=== PATIENT | female | born 1935 ===

== ENCOUNTER 2017-12-22 17:59 | Inpatient (IN) | payer MEDICARE ==
[2017-12-22] MEDS ORDERED: ASPIRIN 81 MG PO STA (18:41)
[2017-12-22 18:56] LABS: Anisocytosis Moderate; Basophils % (A) 0 %; Eosinophils # (A) 0.1 k/uL (0-0.7); Eosinophils % (A) 1 %; HCT 32.7 % (34.0-46.0); HGB 10.1 gm/dL (11.4-16.0); Hypochromasia Slight; Lymphocytes # (A) 1.9 k/uL (1.0-4.8); Lymphocytes % (A) 18 %; MCH 25.7 pg (25.0-35.0); MCHC 30.8 g/dL (31.0-37.0); MCV 83.6 fL (80.0-100.0); Mean Platelet Volume 7.9; Microcytosis Slight; Monocytes # (A) 0.3 k/uL (0-1.0); Monocytes % (A) 3 %; Neutrophils # (A) 8.3 k/uL (1.3-7.7); Neutrophils % (A) 78 %; Platelet Count 301 k/uL (150-450); RBC 3.91 m/uL (3.80-5.40); RDW 21.3 % (11.5-15.5); WBC 10.7 k/uL (3.8-10.6)
[2017-12-22 19:06] LABS: Albumin 3.6 g/dL (3.5-5.0); Calcium 8.8 mg/dL (8.4-10.2); Magnesium 1.7 mg/dL (1.6-2.3); Potassium 3.5 mmol/L (3.5-5.1); Total Bilirubin 0.3 mg/dL (0.2-1.3); Total Protein 5.7 g/dL (6.3-8.2)
--- NOTE | 2017-12-22 19:13 | ED ---
Dizziness HPI - General Chief Complaint: Dizziness Stated Complaint: Chest pain KIRILL Time Seen by Provider: 12/22/17 18:34 Source: patient, family Mode of arrival: EMS - History of Present Illness Initial Comments: 82 years O female comes in with the dizziness dizziness is gone for 24 hours she developed chest pain chest pain lasted about 5 minutes she has no history of heart disease he has a history of COPD she is complaining about being short winded she does wear oxygen at home to sleep. Now chest pain has subsided it only hurts when she takes a deep breath she has been coughing quite a bit for the last few days no abdominal pain no frequency urgency dysuria no symptoms of TIA or CVA - Related Data Home Medications Medication Instructions Recorded Confirmed Albuterol Inhaler [Ventolin Hfa 2 inhalation PO RT-Q6H PRN 12/22/17 12/22/17 Inhaler] Ferrous Sulfate [Feosol] 325 mg PO DAILY 12/22/17 12/22/17 Furosemide [Lasix] 20 mg PO DAILY 12/22/17 12/22/17 Pravastatin Sodium [Pravachol] 20 mg PO DAILY 12/22/17 12/22/17 metFORMIN HCL 1,000 mg PO BID 12/22/17 12/22/17 Allergies Allergy/AdvReac Type Severity Reaction Status Date / Time UKNOWN MED Allergy Unknown Uncoded 12/22/17 18:44 Review of Systems ROS Statement: Those systems with pertinent positive or pertinent negative responses have been documented in the HPI. ROS Other: All systems not noted in ROS Statement are negative. Past Medical History Past Medical History: COPD, Diabetes Mellitus, Osteoarthritis (OA) History of Any Multi-Drug Resistant Organisms: None Reported Past Surgical History: Bowel Resection, Cholecystectomy Past Psychological History: No Psychological Hx Reported Smoking Status: Current every day smoker Past Alcohol Use History: None Reported Past Drug Use History: None Reported Course Vital Signs 12/22/17 12/22/17 18:05 19:10 Temperature 99.4 F 98.1 F Pulse Rate 86 79 Respiratory 18 19 Rate Blood Pressure 115/53 103/56 O2 Sat by Pulse 94 L 97 Oximetry Patient is reassessed at down at 2030, white count is 10.3, BS metabolic panel is unremarkable d-dimer was elevated we did do CT chest angiogram it ruled out pulmonary embolism troponin is negative head CT there was a question of right- sided mastoiditis by clinical exam and indicates She is not tender there deep palpation or percussion over the area did not elicit any excruciating pain and even a mild tenderness and discussed that with the Dr. Serrano and we agreed to hold off any antibiotics at this point. Diagnoses or dizziness and chest pain and pleuritic chest pain she be admitted with the cardiology consult which she has COPD she be getting some inhaled and IV steroids EKG Findings - EKG Comments: EKG Findings:: EKG is normal sinus ventricular rate is 79 OH interval is 162 QRS duration is 72 QT/QTc is 390/447 review of this EKG does reveal T-wave inversion in lead V2 and V3 V4 and V5 Medical Decision Making - Lab Data Result diagrams: 12/22/17 18:35 12/22/17 18:35 Lab Results 12/22/17 12/22/17 12/22/17 Range/Units 18:35 18:35 18:35 WBC 10.7 H (3.8-10.6) k/uL RBC 3.91 (3.80-5.40) m/uL Hgb 10.1 L (11.4-16.0) gm/dL Hct 32.7 L (34.0-46.0) % MCV 83.6 (80.0-100.0) fL MCH 25.7 (25.0-35.0) pg MCHC 30.8 L (31.0-37.0) g/dL RDW 21.3 H (11.5-15.5) % Plt Count 301 (150-450) k/uL Neutrophils % 78 % Lymphocytes % 18 % Monocytes % 3 % Eosinophils % 1 % Basophils % 0 % Neutrophils # 8.3 H (1.3-7.7) k/uL Lymphocytes # 1.9 (1.0-4.8) k/uL Monocytes # 0.3 (0-1.0) k/uL Eosinophils # 0.1 (0-0.7) k/uL Basophils # 0.0 (0-0.2) k/uL Hypochromasia Slight Anisocytosis Moderate Microcytosis Slight PT (9.0-12.0) sec INR (<1.2) APTT (22.0-30.0) sec D-Dimer (<0.60) mg/L FEU Sodium 140 (137-145) mmol/L Potassium 3.5 (3.5-5.1) mmol/L Chloride 107 (98-107) mmol/L Carbon Dioxide 24 (22-30) mmol/L Anion Gap 9 mmol/L BUN 14 (7-17) mg/dL Creatinine 0.90 (0.52-1.04) mg/dL Est GFR (CKD-EPI)AfAm 70 (>60 ml/min/1.73 sqM) Est GFR (CKD-EPI)NonAf 61 (>60 ml/min/1.73 sqM) Glucose 134 H (74-99) mg/dL Calcium 8.8 (8.4-10.2) mg/dL Magnesium 1.7 (1.6-2.3) mg/dL Total Bilirubin 0.3 (0.2-1.3) mg/dL AST 26 (14-36) U/L ALT 33 (9-52) U/L Alkaline Phosphatase 74 (38-126) U/L Total Creatine Kinase 39 (30-135) U/L CK-MB (CK-2) 1.0 (0.0-2.4) ng/mL CK-MB (CK-2) Rel Index 2.6 Troponin I <0.012 (0.000-0.034) ng/mL NT-Pro-B Natriuret Pep pg/mL Total Protein 5.7 L (6.3-8.2) g/dL Albumin 3.6 (3.5-5.0) g/dL 12/22/17 12/22/17 Range/Units 18:35 18:35 WBC (3.8-10.6) k/uL RBC (3.80-5.40) m/uL Hgb (11.4-16.0) gm/dL Hct (34.0-46.0) % MCV (80.0-100.0) fL MCH (25.0-35.0) pg MCHC (31.0-37.0) g/dL RDW (11.5-15.5) % Plt Count (150-450) k/uL Neutrophils % % Lymphocytes % % Monocytes % % Eosinophils % % Basophils % % Neutrophils # (1.3-7.7) k/uL Lymphocytes # (1.0-4.8) k/uL Monocytes # (0-1.0) k/uL Eosinophils # (0-0.7) k/uL Basophils # (0-0.2) k/uL Hypochromasia Anisocytosis Microcytosis PT 9.9 (9.0-12.0) sec INR 1.0 (<1.2) APTT 21.1 L (22.0-30.0) sec D-Dimer 0.70 H (<0.60) mg/L FEU Sodium (137-145) mmol/L Potassium (3.5-5.1) mmol/L Chloride (98-107) mmol/L Carbon Dioxide (22-30) mmol/L Anion Gap mmol/L BUN (7-17) mg/dL Creatinine (0.52-1.04) mg/dL Est GFR (CKD-EPI)AfAm (>60 ml/min/1.73 sqM) Est GFR (CKD-EPI)NonAf (>60 ml/min/1.73 sqM) Glucose (74-99) mg/dL Calcium (8.4-10.2) mg/dL Magnesium (1.6-2.3) mg/dL Total Bilirubin (0.2-1.3) mg/dL AST (14-36) U/L ALT (9-52) U/L Alkaline Phosphatase (38-126) U/L Total Creatine Kinase (30-135) U/L CK-MB (CK-2) (0.0-2.4) ng/mL CK-MB (CK-2) Rel Index Troponin I (0.000-0.034) ng/mL NT-Pro-B Natriuret Pep 114 pg/mL Total Protein (6.3-8.2) g/dL Albumin (3.5-5.0) g/dL Disposition Clinical Impression: Dizziness, Chest pain Disposition: ADMITTED IP TO THIS HOSP Condition: Good Referrals: Luisito Reagan MD [Primary Care Provider] - 1-2 days
[2017-12-22 19:14] LABS: Creatine Kinase 39 U/L (30-135); Partial Thromboplastin Time 21.1 sec (22.0-30.0); Prothrombin Time 9.9 sec (9.0-12.0)
[2017-12-22 19:26] LABS: D-Dimer 0.7 mg/L FEU (<0.60)
[2017-12-22 19:28] LABS: Troponin I <0.012 ng/mL (0.000-0.034)
--- NOTE | 2017-12-22 20:07 | CT ---
EXAMINATION TYPE: CT brain wo con DATE OF EXAM: 12/22/2017 COMPARISON: None HISTORY: Weakness and dizziness. CT DLP: 1044 mGycm Automated exposure control for dose reduction was used. FINDINGS: There is cerebral cortical atrophy. There is no mass effect nor midline shift. There is no sign of in tracranial hemorrhage. The calvarium is intact. There is sclerosis in the right mastoid sinus. IMPRESSION: CEREBRAL ATROPHY. NO ACUTE INTRACRANIAL ABNORMALITY. THERE IS PROBABLY RIGHT-SIDED CHRONIC MASTOIDITI S.
--- NOTE | 2017-12-22 20:10 | CT ---
EXAMINATION TYPE: CT chest angio for PE DATE OF EXAM: 12/22/2017 COMPARISON: None HISTORY: Difficulty breathing. CT DLP: 236.8 mGycm Automated exposure control for dose reduction was used. CONTRAST: CT Chest for pulmonary embolism performed with with IV Contrast, patient injected with 100 mL of Isov ue 370. FINDINGS: There are 3-D post processed images. There is diffuse mild pulmonary emphysema. There is coarsening o f interstitial markings at the lung bases. There is no pericardial effusion. There is no pleural effu belgica. Thoracic aorta is atheromatous. There are paratracheal lymph nodes that measure up to 1.5 cm. There is normal contrast opacification of the pulmonary arteries. I see no filling defect. There is a therosclerotic plaque formation in the proximal descending thoracic aorta. Ascending aorta measures 3 .5 cm. There are no hilar masses. The bony thorax is intact. IMPRESSION: Atheromatous aorta. No evidence of pulmonary embolism. Emphysema.
[2017-12-22] MEDS ORDERED: cefTRIAXone 2,000 MG in SODIUM CHLORIDE 0.9% 100 ML IVPB STA (20:23)
[2017-12-22] MEDS ORDERED: cefTRIAXone IN SWFI 2,000 MG/20 ML SYRINGE IVP ONE (20:30)
[2017-12-22] MEDS ORDERED: NITROGLYCERIN SL TABS 0.4 MG TAB SUBLINGUAL PRN (20:32)
[2017-12-22] MEDS ORDERED: MORPHINE SULFATE 2 MG/ML SYRINGE IVP PRN (20:32)
[2017-12-22] MEDS ORDERED: ALBUTEROL NEBULIZED 2.5 MG/3 ML INHALATION PRN (20:38)
[2017-12-22] MEDS ORDERED: MECLIZINE 12.5 MG TAB PO PRN (20:39)
[2017-12-22] MEDS: metFORMIN 500 MG TAB PO SCH (23:11)
[2017-12-23 01:11] LABS: Creatine Kinase 36 U/L (30-135)
[2017-12-23 01:22] LABS: Troponin I <0.012 ng/mL (0.000-0.034)
[2017-12-23 06:31] LABS: Cholesterol 134 mg/dL (<200); Creatine Kinase 35 U/L (30-135); HDL Cholesterol 26 mg/dL (40-60); LDL Cholesterol,Calculated 63 mg/dL (0-99); Triglycerides 223 mg/dL (<150)
[2017-12-23 06:44] LABS: Creatine Kinase MB 1.1 ng/mL (0.0-2.4); Troponin I <0.012 ng/mL (0.000-0.034)
[2017-12-23] MEDS: metFORMIN 500 MG TAB PO SCH ×2 (06:51→17:34)
[2017-12-23] MEDS: BUDESONIDE 0.5 MG/2 ML NEBU INHALATION SCH ×2 (08:59→17:59)
[2017-12-23] MEDS: FUROSEMIDE 20 MG TAB PO SCH (09:00)
[2017-12-23] MEDS: PRAVASTATIN SODIUM 20 MG TAB PO SCH (09:00)
[2017-12-23] MEDS: FERROUS SULFATE 325 MG TAB PO SCH (09:00)
[2017-12-23] MEDS ORDERED: ASPIRIN 325 MG TAB PO SCH (09:00)
--- NOTE | 2017-12-23 10:34 | P.CRDCN ---
History of Present Illness Consult date: 12/23/17 Requesting physician: Wilton Serrano Consult reason: chest pain Chief complaint: Dizziness and chest pain History of present illness: This is an 82-year-old female with history of diabetes, hyperlipidemia , nicotine dependence, COPD, who presents to the hospital with symptoms of dizziness with subsequent chest discomfort. According to the patient, she was just sitting up in her chair when she all of a sudden became dizzy. Shortly thereafter she states she developed tightness in her chest, became mildly short of breath. She states that the symptoms of chest tightness lasted 5-10 minutes in duration. He also states that she feels that she's been more short of breath than her usual, she has COPD and does continue to smoke. She denies any chest tightness this morning, but does feel a pain in her chest if she takes a deep breath this morning. CT of the brain revealed cerebral atrophy. No acute intracranial abnormality noted. CTA of the chest was performed which did not reveal evidence of a pulmonary embolism. Initial EKG on arrival here showed a normal sinus rhythm with T wave inversion noted in the anterior lateral leads. Repeat EKG this morning shows a normal sinus rhythm with some improvement noted in the anterior T-wave inversion. Blood pressure this morning 142/60 with a heart rate in the 80s, 96% on 2 L of oxygen. White blood cell count 10.7, hemoglobin 10.1, platelet count 301. D-dimer 0.7, sodium 140, potassium 3.5, BUN 14, creatinine 0.9. Troponins are negative 3. BNP level 114. Cholesterol 134, triglycerides 223, LDL 63, HDL 26. At the time of my examination this morning, patient denies any chest discomfort, breathing is overall stable. She denies any dizziness or lightheadedness. According to the patient, she has been told in the past to have a low blood count, she also takes iron supplementation. She denies any recent black stool or blood in her stool. Past Medical History Past Medical History: Chest Pain / Angina, COPD, Diabetes Mellitus, Osteoarthritis (OA) History of Any Multi-Drug Resistant Organisms: None Reported Past Surgical History: Bowel Resection, Cholecystectomy Additional Past Surgical History / Comment(s): partial hysterectomy Past Anesthesia/Blood Transfusion Reactions: No Reported Reaction Past Psychological History: Anxiety, Panic Disorder Smoking Status: Current every day smoker Past Alcohol Use History: None Reported Past Drug Use History: None Reported Medications and Allergies Home Medications Medication Instructions Recorded Confirmed Type Albuterol Inhaler [Ventolin Hfa 2 inhalation PO RT-Q6H PRN 12/22/17 12/22/17 History Inhaler] Ferrous Sulfate [Feosol] 325 mg PO DAILY 12/22/17 12/22/17 History Furosemide [Lasix] 20 mg PO DAILY 12/22/17 12/22/17 History Pravastatin Sodium [Pravachol] 20 mg PO DAILY 12/22/17 12/22/17 History metFORMIN HCL 1,000 mg PO BID 12/22/17 12/22/17 History Allergies Allergy/AdvReac Type Severity Reaction Status Date / Time No Known Drug Allergies Allergy Unknown Unknown Verified 12/23/17 07:06 UKNOWN MED Allergy Unknown Uncoded 12/22/17 18:44 Physical Exam Vitals: Vital Signs Temp Pulse Pulse Resp BP BP Pulse Ox 12/23/17 09:10 80 12/23/17 09:00 80 94 L 12/23/17 08:00 97.5 F L 68 16 143/63 96 12/23/17 04:10 98.3 F 82 19 146/74 94 L 12/22/17 21:45 99.1 F 68 19 115/69 96 12/22/17 21:02 98.1 F 75 16 124/57 97 12/22/17 19:10 98.1 F 79 19 103/56 97 12/22/17 18:05 99.4 F 86 18 115/53 94 L Intake and Output 12/22/17 12/23/17 12/23/17 22:59 06:59 14:59 Intake Total 240 0 Balance 240 0 Intake: Oral 240 0 Other: Voiding Method Toilet Weight 86.183 kg 82.9 kg PHYSICAL EXAMINATION: GENERAL: 82-year-old female in no acute distress at the time of my examination HEENT: Head is atraumatic, normocephalic. Pupils equal, round. Sclera anicteric. Conjunctiva are clear. Mucous membranes of the mouth are moist. Neck is supple. There is no elevated jugular venous pressure. No carotid bruit is heard. HEART EXAMINATION: Heart S1, S2 normal. No murmur or gallop heard. CHEST EXAMINATION: Lungs are clear to auscultation and precussion. No chest wall tenderness is noted on palpation or with deep breathing. ABDOMEN: Soft, nontender. Bowel sounds are heard. No organomegaly noted. EXTREMITIES: 2+ peripheral pulses with no evidence of peripheral edema and no calf tenderness noted. NEUROLOGIC patient is awake, alert and oriented X3. . Results 12/22/17 18:35 12/22/17 18:35 Cardiac Enzymes 12/22/17 12/22/17 12/23/17 Range/Units 18:35 18:35 00:36 AST 26 (14-36) U/L CK-MB (CK-2) 1.0 1.0 (0.0-2.4) ng/mL Troponin I <0.012 <0.012 (0.000-0.034) ng/mL 12/23/17 Range/Units 05:51 AST (14-36) U/L CK-MB (CK-2) 1.1 (0.0-2.4) ng/mL Troponin I <0.012 (0.000-0.034) ng/mL Coagulation 12/22/17 Range/Units 18:35 PT 9.9 (9.0-12.0) sec APTT 21.1 L (22.0-30.0) sec Lipids 12/23/17 Range/Units 05:51 Triglycerides 223 H (<150) mg/dL Cholesterol 134 (<200) mg/dL HDL Cholesterol 26 L (40-60) mg/dL CBC 12/22/17 Range/Units 18:35 WBC 10.7 H (3.8-10.6) k/uL RBC 3.91 (3.80-5.40) m/uL Hgb 10.1 L (11.4-16.0) gm/dL Hct 32.7 L (34.0-46.0) % Plt Count 301 (150-450) k/uL Comprehensive Metabolic Panel 12/22/17 Range/Units 18:35 Sodium 140 (137-145) mmol/L Potassium 3.5 (3.5-5.1) mmol/L Chloride 107 (98-107) mmol/L Carbon Dioxide 24 (22-30) mmol/L BUN 14 (7-17) mg/dL Creatinine 0.90 (0.52-1.04) mg/dL Glucose 134 H (74-99) mg/dL Calcium 8.8 (8.4-10.2) mg/dL AST 26 (14-36) U/L ALT 33 (9-52) U/L Alkaline Phosphatase 74 (38-126) U/L Total Protein 5.7 L (6.3-8.2) g/dL Albumin 3.6 (3.5-5.0) g/dL Current Medications Generic Name Dose Route Start Last Admin Trade Name Freq PRN Reason Stop Dose Admin Albuterol Sulfate 2.5 mg 12/22/17 20:38 Ventolin Nebulized INHALATION RT-Q6H PRN Shortness Of Breath Aspirin 325 mg 12/23/17 09:00 12/23/17 08:59 Aspirin PO 325 mg DAILY GEN Administration Budesonide 0.5 mg 12/23/17 08:00 12/23/17 08:59 Pulmicort INHALATION 0.5 mg RT-BID GEN Administration Ferrous Sulfate 325 mg 12/23/17 09:00 12/23/17 09:00 Feosol PO 325 mg DAILY GEN Administration Furosemide 20 mg 12/23/17 09:00 12/23/17 09:00 Lasix PO 20 mg DAILY GEN Administration Meclizine HCl 12.5 mg 12/22/17 20:39 Antivert PO QID PRN Vertigo Metformin HCl 1,000 mg 12/22/17 21:00 12/23/17 06:51 Glucophage PO Not Given AC-BID GEN Morphine Sulfate 2 mg 12/22/17 20:32 Morphine Sulfate (Inj) IVP Q5M PRN Chest Pain Nitroglycerin 0.4 mg 12/22/17 20:32 Nitrostat SUBLINGUAL Q5M PRN Chest Pain Pravastatin Sodium 20 mg 12/23/17 09:00 12/23/17 09:00 Pravachol PO 20 mg DAILY GEN Administration Intake and Output 12/22/17 12/23/17 12/23/17 22:59 06:59 14:59 Intake Total 240 0 Balance 240 0 Intake: Oral 240 0 Other: Voiding Method Toilet Weight 86.183 kg 82.9 kg 12/22/17 18:35 12/22/17 18:35 EKG Interpretations (text) EKG shows a normal sinus rhythm with anterior lateral T-wave inversion Assessment and Plan Plan: Assessment and plan #1 symptoms of chest tightness with associated shortness of breath, preoperative by dizziness, possible angina. Troponins are negative 3. EKG shows a normal sinus rhythm with T wave inversion noted in the anterior lateral leads. CT of the brain negative. CTA negative for pulmonary embolism. #2 diabetes #3 hyperlipidemia #4 COPD #5 nicotine dependence #6 anemia, hemoglobin 10.1 Plan We will obtain an echocardiogram with Doppler study. We will also check orthostatic heart rate and blood pressure every shift. We will also check a stool for occult blood. Recommend the patient undergo stress test today. Further recommendations will be based on these findings and the patient's clinical course. DNP note has been reviewed, I agree with a documented findings and plan of care. Patient was seen and examined.
[2017-12-23] MEDS ORDERED: SODIUM CHLORIDE 0.9% 1,000 ML in EMPTY BAG 1 BAG IV ONE (11:54)
[2017-12-23] MEDS ORDERED: NITROGLYCERIN SL TABS 0.4 MG TAB SUBLINGUAL PRN ×2 (11:54→18:58)
[2017-12-23] MEDS ORDERED: ASPIRIN 325 MG TAB PO STA (11:54)
[2017-12-23] MEDS ORDERED: ATORVASTATIN 80 MG TAB PO STA (11:54)
[2017-12-23] MEDS ORDERED: ALPRAZolam 0.25 MG TAB PO PRN (11:54)
[2017-12-23] MEDS ORDERED: ALPRAZolam 0.5 MG TAB PO PRN (11:54)
--- NOTE | 2017-12-23 12:12 | ECHOF ---
Referral Reason:chest pain MEASUREMENTS -------- HEIGHT: 167.6 cm WEIGHT: 82.6 kg BP: 143/63 RVIDd: 3.1 cm (< 3.3) IVSd: 1.4 cm (0.6 - 1.1) LVIDd: 4.8 cm (3.9 - 5.3) LVPWd: 1.4 cm (0.6 - 1.1) IVSs: 1.8 cm LVIDs: 3.3 cm LVPWs: 1.8 cm LA Diam: 4.2 cm (2.7 - 3.8) LAESV Index (A-L): 19.00 ml/m Ao Diam: 3.4 cm (2.0 - 3.7) AV Cusp: 1.9 cm (1.5 - 2.6) MV EXCURSION: 12.104 mm (> 18.000) MV EF SLOPE: 47 mm/s (70 - 150) EPSS: 0.6 cm MV E Gil: 1.11 m/s MV DecT: 240 ms MV A Gil: 1.20 m/s MV E/A Ratio: 0.92 FINDINGS -------- Sinus rhythm. This was a technically adequate study. The left ventricular size is normal. There is moderate concentric left ventricular hypertrophy. O verall left ventricular systolic function is low-normal with, an EF between 50 - 55 %. The right ventricle is normal in size. The global wall thickness of the right ventricle is mildly e nlarged. Normal LA size by volume 22+/-6 ml/m2. The right atrium is normal in size. There is mild aortic valve sclerosis. There is trace mitral regurgitation. The tricuspid valve appears structurally normal. There is no pulmonic regurgitation present. The aortic root size is normal. The inferior vena cava is dilated with poor inspiratory collapse which is consistent with estimated r ight atrial pressure of 15 mmHg. There is no pericardial effusion. CONCLUSIONS -------- 1. Sinus rhythm. 2. This was a technically adequate study. 3. The left ventricular size is normal. 4. There is moderate concentric left ventricular hypertrophy. 5. Overall left ventricular systolic function is low-normal with, an EF between 50 - 55 %. 6. The right ventricle is normal in size. 7. The global wall thickness of the right ventricle is mildly enlarged. 8. Normal LA size by volume 22+/-6 ml/m2. 9. The right atrium is normal in size. 10. There is mild aortic valve sclerosis. 11. There is trace mitral regurgitation. 12. The tricuspid valve appears structurally normal. 13. There is no pulmonic regurgitation present. 14. The aortic root size is normal. 15. The inferior vena cava is dilated with poor inspiratory collapse which is consistent with estimat ed right atrial pressure of 15 mmHg. 16. There is no pericardial effusion. [employer]OUND [employer]CHOOL INSTRUCTOR: Gaby Morrison RDCS
[2017-12-23] MEDS ORDERED: MIDAZOLAM 2 MG/2 ML VIAL ONE ×2 (14:12→18:35)
[2017-12-23] MEDS ORDERED: LIDOCAINE 1% INJ 10MG/ML (20 ML MDV) ONE ×2 (14:13→18:07)
[2017-12-23] MEDS ORDERED: fentaNYL (PF) 50 MCG/ML 2 ML AMP ONE ×2 (14:13→18:38)
[2017-12-23] MEDS ORDERED: MIDAZOLAM 2 MG/2 ML VIAL IV ONE ×2 (14:25→18:39)
[2017-12-23] MEDS ORDERED: fentaNYL (PF) 50 MCG/ML 2 ML AMP IV ONE ×2 (14:25→18:41)
[2017-12-23] MEDS ORDERED: SODIUM CHLORIDE 0.9% 1,000 ML IV ONE (14:25)
[2017-12-23] MEDS ORDERED: LIDOCAINE 1% INJ 10MG/ML (20 ML MDV) SQ ONE ×2 (14:28→18:38)
[2017-12-23] MEDS ORDERED: IOPAMIDOL-370 125ML BTL INJ ONE (14:44)
[2017-12-23] MEDS ORDERED: HEPARIN SODIUM 1,000 UN/ML (10ML VL) ONE (14:53)
[2017-12-23 15:34] LABS: Glucose,Whole Blood 122 mg/dL (75-99)
[2017-12-23] MEDS ORDERED: HYDROmorphone 1 MG/ML 1 ML SYRINGE IVP STA (15:38)
--- NOTE | 2017-12-23 16:53 | CC ---
CARDIAC CATHETERIZATION REPORT Mrs. Pa is an 82-year-old female, who came to the hospital with a complaint of chest pressure, shortness of breath and dizziness. Patient had similar symptoms about a week ago. The patient's initial EKG showed anterior lateral changes in V2 to V6. Subsequent EKG is normal. His cardiac enzymes were normal. In view of the abnormal EKG with the chest pressure and shortness of breath, the patient was recommended to have a cardiac catheterization for definitive diagnosis. PROCEDURE: The right groin was prepped and draped in the usual manner and the skin was infiltrated with 2% Xylocaine. The right femoral artery was entered using Seldinger technique. A #6- Belgian sheath was placed in. Selective coronary angiography was then performed in multiple projections and the left ventricular pressures were obtained. Patient tolerated the procedure well. Sheath was left in place and Dr. Chavarria will come later on to the stent to the circumflex coronary artery. HEMODYNAMICS: Left ventricular end-diastolic pressure is 20 mmHg prior to angiography. No gradient is noted across the aortic valve. SELECTIVE CORONARY ANGIOGRAPHY: Left main coronary artery is normally patent. LAD is a good caliber blood vessel and gives rise to a good size diagonal branch. LAD and its branches are normal. Circumflex coronary artery is a good caliber blood vessel. The mid circumflex coronary artery at the origin of the first obtuse marginal branch has 85-90% stenosis. Right coronary artery has mild irregularity and gives rise to the posterior descending artery. FINAL IMPRESSION: This study reveals 85-90% stenosis in the mid circumflex coronary artery. LAD is normal. Right coronary artery has mild irregularity. RECOMMENDATIONS: We will review the films with Dr. Chavarria and proceed with a stent to the circumflex coronary artery in view of the abnormal EKG changes suggestive of ischemia. MMODL / IJN: [id number] /
[2017-12-23 17:03] LABS: Glucose,Whole Blood 120 mg/dL (75-99)
[2017-12-23] MEDS ORDERED: IV FLUID CONTINUATION 1,000 ML IV ONE (18:29)
[2017-12-23] MEDS ORDERED: BIVALIRUDIN 250 MG in SODIUM CHLORIDE 0.9% 50 ML IV ONE (18:42)
[2017-12-23] MEDS ORDERED: BIVALIRUDIN BOLUS 250 MG/50 ML IV ONE (18:42)
[2017-12-23] MEDS ORDERED: CLOPIDOGREL 75 MG TAB ONE (18:50)
[2017-12-23] MEDS ORDERED: NITROGLYCERIN 1000MCG/10ML SYRINGE INTRACORON ONE (18:51)
[2017-12-23] MEDS ORDERED: CLOPIDOGREL 75 MG TAB PO ONE (18:57)
[2017-12-23] MEDS ORDERED: ZOLPIDEM 5 MG TAB PO PRN (18:58)
[2017-12-23] MEDS ORDERED: MAG HYDROX/AL HYDROX/SIMETH 30 ML CUP PO PRN (18:58)
[2017-12-23] MEDS ORDERED: IOPAMIDOL-370 100ML BTL INJ ONE (18:58)
[2017-12-23] MEDS ORDERED: ATROPINE SULFATE 0.1 MG/ML 10ML SYRINGE IV PRN (18:58)
[2017-12-23] MEDS ORDERED: RX INFO: IV CONTRAST WAS GIVEN 1 EACH MISC MISCELLANE PRN (18:58)
[2017-12-23] MEDS ORDERED: SODIUM CHLORIDE 0.9% 1,000 ML IV SCH (19:00)
--- NOTE | 2017-12-23 19:20 | LTR ---
December 23, [address] Reagan: Ms. Jade Pa presented to the hospital with chest discomfort concerning for angina. She underwent heart catheterization by Dr. VC Mederos and was found to have severe disease involving the mid left circumflex. I did perform successful angioplasty and stenting of the left circumflex with good angiographic results. Thank you for allowing us to participate in her care and please do not hesitate to call if you have any question or concern. MMODL / IJN: [id number] /
--- NOTE | 2017-12-23 19:44 | HP ---
HISTORY AND PHYSICAL DATE OF SERVICE: 12/23/17 PRESENTING COMPLAINT: Dizziness, chest pain. HISTORY OF PRESENTING COMPLAINT: This 82-year-old patient follows Dr. Reagan. Chronic stable medical conditions include COPD, diabetes, osteoarthritis, urine incontinence, GERD. The patient complains of dizziness present on and off. One episode happened really when she was sitting up in a chair, became acutely dizzy. Also developed chest pressure going across, some shortness of breath. Not short of breath. None did not radiate to the neck or arm. Also, dizziness has been present off and on. Has slight cough. Patient smokes close to 3 packs a day. The patient is brought in for the same. The patient is found to have some EKG changes. Troponins were negative. 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 VC Mederos, found to have an 80 to 90% stenosis in the mid circumflex. Dr. Chavarria will be proceeding with further intervention. That was done. Post procedure patient lying in bed. No chest pain. REVIEW OF SYSTEMS: CONSTITUTIONAL: Tired. HEENT: Some ringing in the ears. RESPIRATORY: Above. CARDIOVASCULAR: As above. GASTROINTESTINAL: Heartburn. GENITOURINARY: Incontinence. DERMATOLOGICAL, HEMATOLOGIC, LYMPHATIC: None. PSYCHIATRY: None. NEUROLOGICAL: None. MUSCULOSKELETAL: Arthritic pain in different joints. PAST MEDICAL HISTORY: COPD, diabetes, osteoarthritis, GERD, urinary incontinence. PAST SURGICAL HISTORY: Bowel resection, cholecystectomy, partial hysterectomy. SOCIAL HISTORY: Smokes about 3 packs a day close to 72 years. Lives by herself. No alcohol. FAMILY HISTORY: Reviewed, noncontributory to presentation. Additionally, the patient does use a cane or walker sometimes. HOME MEDICATIONS: 1. Metformin 1000 mg b.i.d. 2. Pravachol 20 mg daily. 3. Lasix 20 mg daily. 4. Iron 325 p.o. daily. 5. Ventolin HFA 2 puffs q.6h p.r.n. ALLERGIES: None. PHYSICAL EXAMINATION: Temperature 97.9, pulse 58, respiration 18, blood pressure 130/60, pulse ox 98% on 2 L. GENERAL APPEARANCE: Average build lying in bed, awake. EYES: Pupils equal. Conjunctivae normal. HEENT: External appearance of nose and ears normal. Oral cavity normal. NECK: JVD not raised. Mass not palpable. RESPIRATORY: Effort normal. Lungs slightly decreased breath sounds. CARDIOVASCULAR: 1st and 2nd sounds. No edema. ABDOMEN: Soft, nontender. Liver and spleen not palpable. LYMPHATIC: No lymph node palpable. PSYCHIATRY: Alert and oriented x3. Mood and affect normal. NEUROLOGICAL: Pupils equal. Cranial nerves grossly intact. Power and sensation grossly intact. MUSCULOSKELETAL: Evidence of osteoarthritis especially in the hands. INVESTIGATIONS: White count 10.7, hemoglobin 10.1, potassium 3.5, BUN 14, creatinine 0.9. Troponin x3 negative. LDL 63. Cardiac cath results as above. Chest CTA, no PE, emphysema. CT scan of the brain: Cerebral atrophy. EKG tracing reviewed by me showed evidence of flipped T-waves in the anterior leads. ASSESSMENT: 1. Unstable angina in a patient with risk factors including diabetes, her age, smoking. 2. Coronary artery disease with 80-90% lesion in the mid-circumflex with angioplasty and stenting. 3. Chronic obstructive pulmonary disease in a current smoker. 4. Chronic nicotine dependence. Patient is a cigarette smoker. 5. Diabetes mellitus type 2 on oral hypoglycemic. 6. Primary osteoarthritis in multiple joints, bilateral. 7. Chronic urinary stress incontinence. 8. Gastroesophageal reflux disease. PLAN: Patient is status post cardiac cath angioplasty stenting. Accu-Cheks will be closely followed. The patient is on aspirin and Pravachol. Will add DEREK inhibitor. Home medications resumed. The patient is seen by Dr. Darcy Mederos from Cardiology. SMOKING CESSATION COUNSELING: This was done with the patient. The patient will be given a nicotine patch. More than 3 minutes was spent on this aspect of the case. MMODL / IJN: [id number] /
--- NOTE | 2017-12-23 20:29 | PTCA ---
PERCUTANEOUSTRANS CORORONARY ANGIOGRAPHY DATE OF SERVICE: 12/23/2017 PERFORMING PHYSICIAN: Norris Chavarria MD, refinery operator vapor recovery unit. PROCEDURE PERFORMED: Successful stenting of the mid left circumflex using a 2.5 x 12 mm Xience drug-eluting stent with good angiographic results. INDICATION: This is a very pleasant 82-year-old female patient who presented to the hospital complaining of chest discomfort and EKG changes concerning for angina. She underwent a heart catheterization by Dr. Rachana Mederos and was found to have severe eccentric lesion involving the mid left circumflex. Percutaneous coronary intervention was recommended. APPROACH: Right common femoral artery. COMPLICATIONS: None. LEVEL OF SEDATION: Moderate with sedation length of 19 minutes. PROCEDURE DESCRIPTION: After diagnostic heart catheterization was performed by Dr. Rachana Mederos, we decided to proceed with an intervention on the left circumflex. Anticoagulation was initiated using Angiomax. Subsequently I exchanged the 11 cm 6-Burkinan sheath for a new one. After that I engaged the left main using an XP35 guide. I used a run-through wire to wire the left circumflex coronary artery. After that I did PTCA ballooning using a 2.0 x 12 mm balloon before I deployed a 2.5 x 12 mm Xience OMAR where the stent was positioned under fluoroscopy guidance and deployed under its nominal pressure, which is 10 atmospheres, for 20 seconds. The following angiogram showed good angiographic results with reduction of stenosis from 70% to 80% to 10%. The procedure was completed without any complication. POST-PROCEDURE MANAGEMENT: 1. Dual anti-platelet therapy. 2. Aggressive cholesterol control. 3. Follow up with the patient. MMODL / IJN: [id number] /
[2017-12-23 21:09] LABS: Glucose,Whole Blood 213 mg/dL (75-99)
[2017-12-23] MEDS: NICOTINE 21MG/24HR PATCH TRANSDERM SCH (21:15)
[2017-12-23] MEDS: METOPROLOL TARTRATE 25 MG TAB PO SCH (21:16)
[2017-12-23] MEDS: LISINOPRIL 5 MG TAB PO SCH (21:16)
[2017-12-24 05:57] LABS: Glucose,Whole Blood 139 mg/dL (75-99)
[2017-12-24 06:42] LABS: Anisocytosis Moderate; Basophils % (A) 0 %; Eosinophils # (A) 0.1 k/uL (0-0.7); Eosinophils % (A) 2 %; HCT 30.8 % (34.0-46.0); HGB 9.4 gm/dL (11.4-16.0); Hypochromasia Marked; Lymphocytes # (A) 1.8 k/uL (1.0-4.8); Lymphocytes % (A) 23 %; MCH 26.2 pg (25.0-35.0); MCHC 30.5 g/dL (31.0-37.0); MCV 85.8 fL (80.0-100.0); Mean Platelet Volume 7.3; Microcytosis Slight; Monocytes # (A) 0.3 k/uL (0-1.0); Monocytes % (A) 3 %; Neutrophils # (A) 5.8 k/uL (1.3-7.7); Neutrophils % (A) 71 %; Platelet Count 248 k/uL (150-450); RBC 3.58 m/uL (3.80-5.40); RDW 21.3 % (11.5-15.5); WBC 8.1 k/uL (3.8-10.6)
[2017-12-24 07:00] LABS: Anion Gap 6 mmol/L; Blood Urea Nitrogen 10 mg/dL (7-17); Calcium 8.4 mg/dL (8.4-10.2); Carbon Dioxide 24 mmol/L (22-30); Chloride 109 mmol/L (98-107); Glucose 120 mg/dL (74-99); Potassium 3.7 mmol/L (3.5-5.1); Sodium 139 mmol/L (137-145)
[2017-12-24] MEDS: NICOTINE 21MG/24HR PATCH TRANSDERM SCH ×2 (08:01→08:02)
[2017-12-24] MEDS: BUDESONIDE 0.5 MG/2 ML NEBU INHALATION SCH (08:37)
[2017-12-24] MEDS ORDERED: CLOPIDOGREL 75 MG TAB PO SCH (09:00)
[2017-12-24] MEDS ORDERED: ASPIRIN 81 MG PO SCH (09:00)
[2017-12-24] MEDS: FERROUS SULFATE 325 MG TAB PO SCH (09:11)
[2017-12-24] MEDS: METOPROLOL TARTRATE 25 MG TAB PO SCH (09:11)
[2017-12-24] MEDS: PRAVASTATIN SODIUM 20 MG TAB PO SCH (09:11)
[2017-12-24] MEDS: FUROSEMIDE 20 MG TAB PO SCH (09:11)
[2017-12-24] MEDS: LISINOPRIL 5 MG TAB PO SCH (09:11)
[2017-12-24 11:53] LABS: Glucose,Whole Blood 173 mg/dL (75-99)
[2017-12-24 12:04] VITALS: BMI 29.5
--- NOTE | 2017-12-24 12:28 | P.PN ---
Subjective Progress Note Date: 12/24/17 This is an 82-year-old female with history of diabetes, hyperlipidemia , nicotine dependence, COPD, who presents to the hospital with symptoms of dizziness with subsequent chest discomfort. According to the patient, she was just sitting up in her chair when she all of a sudden became dizzy. Shortly thereafter she states she developed tightness in her chest, became mildly short of breath. She states that the symptoms of chest tightness lasted 5-10 minutes in duration. He also states that she feels that she's been more short of breath than her usual, she has COPD and does continue to smoke. She denies any chest tightness this morning, but does feel a pain in her chest if she takes a deep breath this morning. CT of the brain revealed cerebral atrophy. No acute intracranial abnormality noted. CTA of the chest was performed which did not reveal evidence of a pulmonary embolism. Initial EKG on arrival here showed a normal sinus rhythm with T wave inversion noted in the anterior lateral leads. Repeat EKG this morning shows a normal sinus rhythm with some improvement noted in the anterior T-wave inversion. Blood pressure this morning 142/60 with a heart rate in the 80s, 96% on 2 L of oxygen. White blood cell count 10.7, hemoglobin 10.1, platelet count 301. D-dimer 0.7, sodium 140, potassium 3.5, BUN 14, creatinine 0.9. Troponins are negative 3. BNP level 114. Cholesterol 134, triglycerides 223, LDL 63, HDL 26. At the time of my examination this morning, patient denies any chest discomfort, breathing is overall stable. She denies any dizziness or lightheadedness. According to the patient, she has been told in the past to have a low blood count, she also takes iron supplementation. She denies any recent black stool or blood in her stool. 12/24/2017 Patient was taken to the cardiac catheterization lab yesterday where she underwent angioplasty with stent placement of the circumflex artery. She was seen and examined this morning, denies any chest pain or difficulty in breathing. She was complaining earlier that she felt as though her neck was swollen, on examination, there appears to be no swelling, no rash area she does have a harsh cough, likely from smoking. I pressure 112/70 with a heart rate in the 60s, 93% on room air. Hemoglobin 9.4, platelet count 248. Sodium 139, potassium 3.7, chloride 109, BUN 10, creatinine 0.7. EKG shows normal sinus rhythm with no new changes post-PCI. Objective - Vital Signs Vital signs: Vital Signs Temp 97.2 F L 12/24/17 07:51 Pulse 60 12/24/17 08:48 Resp 16 12/24/17 07:51 BP 113/70 12/24/17 07:51 Pulse Ox 93 L 12/24/17 07:51 Intake & Output 12/23/17 12/24/17 12/24/17 18:59 06:59 18:59 Intake Total 166 180 Balance 166 180 Weight 83 kg 83 kg Intake: IV 166 Oral 0 180 Other: Voiding Method Bedpan Toilet # Voids 0 2 1 - Exam PHYSICAL EXAMINATION: GENERAL: 82-year-old female in no acute distress examination HEENT: Head is atraumatic, normocephalic. Pupils equal, round. Sclera anicteric. Conjunctiva are clear. Mucous membranes of the mouth are moist. Neck is supple. There is no elevated jugular venous pressure.] bruit is heard. HEART EXAMINATION: Heart S1, S2 normal. No murmur or gallop heard. CHEST EXAMINATION: Lungs are clear to auscultation and precussion. No chest wall tenderness is noted on palpation or with deep breathing. ABDOMEN: Soft, nontender. Bowel sounds are heard. No organomegaly noted. EXTREMITIES: 2+ peripheral pulses with no evidence of peripheral edema and no calf tenderness noted. Right groin soft, no evidence of any hematoma. NEUROLOGIC patient is awake, alert and oriented ?-3. . - Labs CBC & Chem 7: 12/24/17 06:05 12/24/17 06:05 Labs: Abnormal Lab Results - Last 24 Hours (Table) 12/23/17 12/23/17 12/23/17 Range/Units 15:14 16:58 21:08 RBC (3.80-5.40) m/uL Hgb (11.4-16.0) gm/dL Hct (34.0-46.0) % MCHC (31.0-37.0) g/dL RDW (11.5-15.5) % Chloride (98-107) mmol/L Glucose (74-99) mg/dL POC Glucose (mg/dL) 122 H 120 H 213 H (75-99) mg/dL 12/24/17 12/24/17 12/24/17 Range/Units 05:55 06:05 06:05 RBC 3.58 L (3.80-5.40) m/uL Hgb 9.4 L (11.4-16.0) gm/dL Hct 30.8 L (34.0-46.0) % MCHC 30.5 L (31.0-37.0) g/dL RDW 21.3 H (11.5-15.5) % Chloride 109 H (98-107) mmol/L Glucose 120 H (74-99) mg/dL POC Glucose (mg/dL) 139 H (75-99) mg/dL 12/24/17 Range/Units 11:51 RBC (3.80-5.40) m/uL Hgb (11.4-16.0) gm/dL Hct (34.0-46.0) % MCHC (31.0-37.0) g/dL RDW (11.5-15.5) % Chloride (98-107) mmol/L Glucose (74-99) mg/dL POC Glucose (mg/dL) 173 H (75-99) mg/dL Assessment and Plan Plan: Assessment and plan #1 symptoms of chest tightness with associated shortness of breath, preoperative by dizziness, possible angina. Troponins are negative 3. EKG shows a normal sinus rhythm with T wave inversion noted in the anterior lateral leads. CT of the brain negative. CTA negative for pulmonary embolism. #2 diabetes #3 hyperlipidemia #4 COPD #5 nicotine dependence #6 anemia, hemoglobin 10.1 Plan Patient was taken to the cardiac catheterization lab where she underwent angioplasty and stenting of the circumflex artery. From cardiology's perspective, she may be able to be discharged home today. We'll make her a follow-up appointment to see Dr. Mederos in the office post discharge. Discharge medications include aspirin 81 mg daily, Lipitor 80 mg daily, Plavix 75 mg daily, Zestril 5 mg daily, metoprolol 25 mg one tablet by mouth twice a day, nitroglycerin as needed for chest DNP note has been reviewed, I agree with a documented findings and plan of care. Patient was seen and examined.
[2017-12-24 13:01] VITALS: BP 108/59; PULSE 64; RESP 18; TEMP 98.1
[2017-12-25] MEDS ORDERED: ATORVASTATIN 80 MG TAB PO SCH (09:00)
[2017-12-26] MEDS ORDERED: metFORMIN 500 MG TAB PO SCH (07:30)
--- NOTE | 2017-12-29 12:29 | DS ---
DISCHARGE SUMMARY DATE OF ADMISSION: . DATE OF DISCHARGE: 12/24/2017. FINAL DIAGNOSES: 1. Unstable angina in a patient with multiple cardiac risk factors. 2. Coronary artery disease per cardiac catheterization. 3. Chronic obstructive pulmonary disease in a current smoker. 4. Chronic nicotine dependence, patient is an active cigarette smoker. 5. Diabetes mellitus type 2, on oral hypoglycemic. 6. Primary osteoarthritis, multiple joints bilateral. 7. Chronic urinary stress incontinence. 8. Gastroesophageal reflux disease. CONSULTATIONS: 1. Dr. Rachana Mederos, Fire Boss. 2. Dr. Cam Chavarria, Gang Bore Operator. HOSPITAL COURSE: This patient presented with chest pain and dizziness. Troponins were negative. A 2D echocardiogram showed preserved LV function. Cardiac catheterization was carried out. Successful angioplasty with a drug-eluting stent was carried out to the mid left circumflex. The patient is doing much better at the time of discharge, up and about no cardiac symptoms. No dizziness. PHYSICAL EXAMINATION: Temperature 98.1, pulse 64, respiratory 18, blood pressure 108/59. LUNGS: Slightly decreased breath sounds. CARDIOVASCULAR: First and second sounds are normal. PSYCH: A/O x3. DISCHARGE MEDICATIONS: 1. Ventolin HFA 2 puffs q.6 p.r.n. 2. Iron 325 p.o. daily. 3. Lasix 20 mg p.o. daily. 4. Metformin 1000 mg p.o. b.i.d. 5. Aspirin 81 mg p.o. daily. 6. Lipitor 80 mg p.o. daily. 7. Plavix 75 mg p.o. daily. 8. Zestril 5 mg p.o. daily. 9. Lopressor 25 p.o. b.i.d. 10.Nicotine 21 mg patch. 11.Nitrostat 0.4 sublingual q.5 p.r.n. FOLLOWUP: Dr. Reagan on 12/30/2017, follow up with Dr. Faviola Estrada on 12/31/2017 MMODL / NITAN: [id number] /
== END 2017-12-24 16:20 | disposition home or self-care (01) | DRG 247 ==
LOC: EC 17:59 → 6SEL 20:32
PROVIDERS: ADMIT Hospitalist; ATTEND Hospitalist
PROC: 027034Z Dilation of Coronary Artery, One Artery with Drug-eluting Intraluminal Device, Percutaneous Approach (ICD-10-PCS; 2017-12-23)
PROC: 4A023N7 Measurement of Cardiac Sampling and Pressure, Left Heart, Percutaneous Approach (ICD-10-PCS; principal; 2017-12-23 14:10)
PROC: B2111ZZ Fluoroscopy of Multiple Coronary Arteries using Low Osmolar Contrast (ICD-10-PCS; principal; 2017-12-23 14:10)
DX: I25.110 Atherosclerotic heart disease of native coronary artery with unstable angina pectoris (principal); E11.9 Type 2 diabetes mellitus without complications; F17.210 Nicotine dependence, cigarettes, uncomplicated; J44.9 Chronic obstructive pulmonary disease, unspecified; K21.9 Gastro-esophageal reflux disease without esophagitis; M15.9 Polyosteoarthritis, unspecified; N39.3 Stress incontinence (female) (male); Z79.82 Long term (current) use of aspirin; Z79.84 Long term (current) use of oral hypoglycemic drugs; Z79.899 Other long term (current) drug therapy; Z90.710 Acquired absence of both cervix and uterus; Z99.81 Dependence on supplemental oxygen; Z71.6 Tobacco abuse counseling; Z90.49 Acquired absence of other specified parts of digestive tract
CPT/HCPCS: 36415; 70450; 71275; 80048; 80053; 80061; 82550; 82553; 83735; 83880; 84484; 85025; 85379; 85610; 85730; 93005; 93306; 93458; 94640; 94760; 99285

== ENCOUNTER 2018-07-15 13:55 | Observation (INO) | payer MEDICARE ==
[2018-07-15] MEDS ORDERED: IPRATROPIUM-ALBUTEROL 3 ML NEB INHALATION STA (14:18)
[2018-07-15] MEDS ORDERED: methylPREDNISolone SOD SUCCI 125 MG/2 ML VIAL IV STA (14:18)
--- NOTE | 2018-07-15 14:20 | ED ---
General Adult HPI - General Chief complaint: Shortness of Breath Stated complaint: KIRILL Time Seen by Provider: 07/15/18 14:09 Source: patient, RN notes reviewed Mode of arrival: wheelchair Limitations: no limitations - History of Present Illness Initial comments: Patient is a pleasant 82-year-old female presenting to the emergency Department with complaints of codeine breathing. Symptoms started yesterday and worsened today. Symptoms are similar to previous COPD. Patient does have nonproductive cough. No fevers. Patient does feel somewhat fatigued. No chest pain or leg swelling. - Related Data Home Medications Medication Instructions Recorded Confirmed Albuterol Inhaler [Ventolin Hfa 2 inhalation PO RT-Q6H PRN 12/22/17 07/15/18 Inhaler] Ferrous Sulfate [Iron (65 MG 325 mg PO DAILY 12/22/17 07/15/18 Elemental)] Furosemide [Lasix] 20 mg PO DAILY 12/22/17 07/15/18 metFORMIN HCL 1,000 mg PO BID 12/22/17 07/15/18 Previous Rx's Medication Instructions Recorded Aspirin 81 mg PO DAILY #30 chew 12/24/17 Atorvastatin [Lipitor] 80 mg PO DAILY #30 tab 12/24/17 Clopidogrel [Plavix] 75 mg PO DAILY #303 tab 12/24/17 Lisinopril [Zestril] 5 mg PO DAILY #30 tab 12/24/17 Metoprolol Tartrate [Lopressor] 25 mg PO BID #60 tab 12/24/17 Allergies Allergy/AdvReac Type Severity Reaction Status Date / Time levofloxacin Allergy Anaphylaxis Verified 07/15/18 14:26 Review of Systems ROS Statement: Those systems with pertinent positive or pertinent negative responses have been documented in the HPI. ROS Other: All systems not noted in ROS Statement are negative. Constitutional: Denies: fever Eyes: Denies: eye pain ENT: Denies: ear pain Respiratory: Reports: cough, dyspnea Cardiovascular: Denies: chest pain Endocrine: Reports: fatigue Gastrointestinal: Denies: abdominal pain Genitourinary: Denies: dysuria Musculoskeletal: Denies: back pain Skin: Denies: rash Neurological: Denies: weakness Past Medical History Past Medical History: Chest Pain / Angina, COPD, Diabetes Mellitus, Osteoarthritis (OA) History of Any Multi-Drug Resistant Organisms: None Reported Past Surgical History: Bowel Resection, Cholecystectomy, Heart Catheterization With Stent Additional Past Surgical History / Comment(s): partial hysterectomy Past Anesthesia/Blood Transfusion Reactions: No Reported Reaction Past Psychological History: Anxiety, Panic Disorder Smoking Status: Current every day smoker Past Alcohol Use History: None Reported Past Drug Use History: None Reported General Exam Limitations: no limitations General appearance: alert Head exam: Present: atraumatic Eye exam: Present: normal appearance, PERRL ENT exam: Present: normal oropharynx Neck exam: Present: normal inspection Respiratory exam: Present: wheezes, decreased breath sounds Cardiovascular Exam: Present: regular rate, normal rhythm GI/Abdominal exam: Present: soft. Absent: tenderness Extremities exam: Present: normal inspection. Absent: pedal edema, calf tenderness Back exam: Present: normal inspection Neurological exam: Present: alert Psychiatric exam: Present: normal affect, normal mood Skin exam: Present: normal color Course Vital Signs 07/15/18 07/15/18 07/15/18 13:57 14:43 15:28 Temperature 97.4 F L Pulse Rate 54 L 49 L 55 L Respiratory 26 H 16 Rate Blood Pressure 101/57 108/57 O2 Sat by Pulse 98 95 Oximetry EKG Findings - EKG Comments: EKG Findings:: Sinus bradycardia at 50. WI 174. QRS 74. QT 32. QTC 439. Normal axis. Normal QRS. No acute ST change. Medical Decision Making - Medical Decision Making Patient reevaluated with only mild improvement. Patient and family updated on results and plan. Dr. Serrano has been paged for admission for Dr. Reagan. - Lab Data Result diagrams: 07/15/18 14:38 07/15/18 14:38 Lab Results 07/15/18 07/15/18 07/15/18 Range/Units 14:38 14:38 14:38 WBC 10.2 (3.8-10.6) k/uL RBC 3.77 L (3.80-5.40) m/uL Hgb 11.9 (11.4-16.0) gm/dL Hct 37.3 (34.0-46.0) % MCV 98.9 (80.0-100.0) fL MCH 31.5 (25.0-35.0) pg MCHC 31.9 (31.0-37.0) g/dL RDW 17.8 H (11.5-15.5) % Plt Count 354 (150-450) k/uL Neutrophils % 81 % Lymphocytes % 14 % Monocytes % 4 % Eosinophils % 1 % Basophils % 1 % Neutrophils # 8.2 H (1.3-7.7) k/uL Lymphocytes # 1.4 (1.0-4.8) k/uL Monocytes # 0.4 (0-1.0) k/uL Eosinophils # 0.1 (0-0.7) k/uL Basophils # 0.1 (0-0.2) k/uL Hypochromasia Moderate Anisocytosis Slight Macrocytosis Slight PT 9.8 (9.0-12.0) sec INR 0.9 (<1.2) APTT 22.8 (22.0-30.0) sec Sodium 138 (137-145) mmol/L Potassium 4.9 (3.5-5.1) mmol/L Chloride 104 (98-107) mmol/L Carbon Dioxide 24 (22-30) mmol/L Anion Gap 10 mmol/L BUN 11 (7-17) mg/dL Creatinine 0.82 (0.52-1.04) mg/dL Est GFR (CKD-EPI)AfAm 78 (>60 ml/min/1.73 sqM) Est GFR (CKD-EPI)NonAf 68 (>60 ml/min/1.73 sqM) Glucose 132 H (74-99) mg/dL Calcium 9.2 (8.4-10.2) mg/dL Total Bilirubin 0.8 (0.2-1.3) mg/dL AST 24 (14-36) U/L ALT 25 (9-52) U/L Alkaline Phosphatase 92 (38-126) U/L Total Protein 6.6 (6.3-8.2) g/dL Albumin 4.2 (3.5-5.0) g/dL - Radiology Data Radiology results: image reviewed (Chest x-ray shows no acute process) Disposition Clinical Impression: Acute exacerbation of chronic obstructive airways disease Disposition: ADMITTED IP TO THIS HOSP Is patient prescribed a controlled substance at d/c from ED?: No Referrals: Luisito Reagan MD [Primary Care Provider] - 1-2 days Decision Time: 15:36
[2018-07-15 14:57] LABS: Anisocytosis Slight; Basophils # (A) 0.1 k/uL (0-0.2); Basophils % (A) 1 %; Eosinophils # (A) 0.1 k/uL (0-0.7); Eosinophils % (A) 1 %; HCT 37.3 % (34.0-46.0); HGB 11.9 gm/dL (11.4-16.0); Hypochromasia Moderate; Lymphocytes # (A) 1.4 k/uL (1.0-4.8); Lymphocytes % (A) 14 %; MCH 31.5 pg (25.0-35.0); MCHC 31.9 g/dL (31.0-37.0); MCV 98.9 fL (80.0-100.0); Macrocytosis Slight; Mean Platelet Volume 7.3; Monocytes # (A) 0.4 k/uL (0-1.0); Monocytes % (A) 4 %; Neutrophils # (A) 8.2 k/uL (1.3-7.7); Neutrophils % (A) 81 %; Platelet Count 354 k/uL (150-450); RBC 3.77 m/uL (3.80-5.40); RDW 17.8 % (11.5-15.5); WBC 10.2 k/uL (3.8-10.6)
[2018-07-15 14:59] LABS: INR 0.9 (<1.2); Partial Thromboplastin Time 22.8 sec (22.0-30.0); Prothrombin Time 9.8 sec (9.0-12.0)
[2018-07-15 15:01] LABS: Albumin 4.2 g/dL (3.5-5.0); Calcium 9.2 mg/dL (8.4-10.2); Potassium 4.9 mmol/L (3.5-5.1); Total Bilirubin 0.8 mg/dL (0.2-1.3); Total Protein 6.6 g/dL (6.3-8.2)
--- NOTE | 2018-07-15 15:22 | XR ---
EXAMINATION TYPE: XR chest 2V DATE OF EXAM: 07/15/2018 COMPARISON: Prior chest x-ray 11/28/2011 HISTORY: Difficulty breathing TECHNIQUE: Frontal and lateral views of the chest are obtained. FINDINGS: There are cardiac leads. Eventration of right hemidiaphragm is noted. Aorta is dense. There are prominent lung volumes compatible with underlying COPD. Thoracic spondylosis is present. Heart s ize is stable. No evident airspace disease, pneumothorax, or pleural effusion. IMPRESSION: No acute cardiopulmonary process.
[2018-07-15] MEDS ORDERED: IPRATROPIUM-ALBUTEROL 3 ML NEB INHALATION PRN (15:34)
[2018-07-15] MEDS ORDERED: SODIUM CHLORIDE 0.9% 500 ML 500 ML IV ONE (16:52)
[2018-07-15] MEDS: IPRATROPIUM-ALBUTEROL 3 ML NEB INHALATION SCH ×2 (16:59→20:05)
[2018-07-15 18:48] VITALS: BMI 26.2
[2018-07-15] MEDS: methylPREDNISolone SOD SUCCI 125 MG/2 ML VIAL IV SCH (20:18)
[2018-07-15] MEDS: METOPROLOL TARTRATE 25 MG TAB PO SCH (20:18)
[2018-07-15] MEDS: metFORMIN 500 MG TAB PO SCH (20:19)
[2018-07-15] MEDS: INSULIN ASPART (NovoLOG) 100 UNIT/ML VIAL SQ SCH (20:42)
[2018-07-15 20:43] LABS: Glucose,Whole Blood 284 mg/dL (75-99)
[2018-07-16] MEDS: methylPREDNISolone SOD SUCCI 125 MG/2 ML VIAL IV SCH ×3 (01:10→12:28)
[2018-07-16] MEDS: IPRATROPIUM-ALBUTEROL 3 ML NEB INHALATION SCH ×4 (07:12→19:11)
[2018-07-16 07:18] LABS: Glucose,Whole Blood 165 mg/dL (75-99)
[2018-07-16] MEDS: METOPROLOL TARTRATE 25 MG TAB PO SCH ×2 (09:41→20:57)
[2018-07-16] MEDS: FERROUS SULFATE 325 MG TAB PO SCH (09:41)
[2018-07-16] MEDS: ASPIRIN 81 MG PO SCH (09:41)
[2018-07-16] MEDS: INSULIN ASPART (NovoLOG) 100 UNIT/ML VIAL SQ SCH ×4 (09:41→20:56)
[2018-07-16] MEDS: ATORVASTATIN 80 MG TAB PO SCH (09:41)
[2018-07-16] MEDS: LISINOPRIL 5 MG TAB PO SCH (09:41)
[2018-07-16] MEDS: FUROSEMIDE 20 MG TAB PO SCH (09:41)
[2018-07-16] MEDS: CLOPIDOGREL 75 MG TAB PO SCH (09:41)
[2018-07-16] MEDS: metFORMIN 500 MG TAB PO SCH ×2 (09:41→20:57)
[2018-07-16 12:02] LABS: Glucose,Whole Blood 243 mg/dL (75-99)
[2018-07-16] MEDS ORDERED: NALOXONE 0.4 MG/ML 1 ML VIAL IV PRN (15:52)
[2018-07-16] MEDS ORDERED: MAGNESIUM HYDROXIDE 2,400 MG/10 ML CUP PO PRN (15:52)
[2018-07-16] MEDS ORDERED: LACTULOSE 20 GM/30 ML CUP PO PRN (15:52)
[2018-07-16] MEDS ORDERED: MAG HYDROX/AL HYDROX/SIMETH 30 ML CUP PO PRN (15:52)
[2018-07-16] MEDS ORDERED: ACETAMINOPHEN TAB 325 MG TAB PO PRN (15:52)
[2018-07-16] MEDS ORDERED: ONDANSETRON 4 MG/2 ML VIAL IVP PRN (15:52)
[2018-07-16] MEDS ORDERED: CALCIUM CARBONATE 500 MG CHEWABLE PO PRN (15:52)
[2018-07-16] MEDS ORDERED: ALPRAZolam 0.25 MG TAB PO PRN (15:52)
[2018-07-16] MEDS ORDERED: MELATONIN 3 MG TABLET PO PRN (15:52)
--- NOTE | 2018-07-16 16:27 | HP ---
HISTORY AND PHYSICAL DATE OF ADMISSION: 07/15/2018 DATE OF SERVICE: 07/16/2018 PRESENTING COMPLAINT: Shortness of breath, cough. HISTORY OF PRESENTING COMPLAINT: This is a pleasant 82-year-old patient of Dr. Reagan whose chronic stable medical conditions include coronary artery disease, diabetes, osteoarthritis, urinary stress incontinence, GERD, anxiety. Patient is a long-standing smoker. She presents with worsening short of breath, cough, wheezing, a little sputum production, diagnosed to have acute COPD exacerbation. She was started on bronchodilators and IV Solu-Medrol. Patient is not bringing up much sputum. No fever. No chills. Appetite is fair. REVIEW OF SYSTEMS: CONSTITUTIONAL: Tired. HEENT: None. RESPIRATORY: As above. CARDIOVASCULAR: None. GASTROINTESTINAL: None. GENITOURINARY: None. MUSCULOSKELETAL: Arthritic pain in joints. DERMATOLOGICAL: None. HEMATOLOGICAL: None. LYMPHATICS: None. PSYCHIATRY: Anxiety. NEUROLOGICAL: None. PAST MEDICAL HISTORY: 1. Coronary artery disease. 2. COPD. 3. Diabetes. 4. Osteoarthritis. 5. Urinary stress incontinence. 6. GERD. 7. Anxiety. PAST SURGICAL HISTORY: 1. Cardiac cath with stent. 2. Bowel resection. 3. Partial hysterectomy. 4. Cholecystectomy. SOCIAL HISTORY: Lives alone. Has smoked up to 3 packs a day for close to 50 years. No alcohol intake. FAMILY HISTORY: Reviewed; noncontributory to presentation. HOME MEDICATIONS: 1. Metformin 1000 mg b.i.d. 2. Lopressor 25 mg b.i.d. 3. Zestril 5 mg daily. 4. Lasix 20 mg p.o. daily. 5. Iron 325 p.o. daily. 6. Plavix 75 mg p.o. daily. 7. Lipitor 80 mg p.o. daily. 8. Aspirin 81 mg p.o. daily. 9. Ventolin HFA 2 puffs q.6 p.r.n. ALLERGIES: LEVAQUIN. PHYSICAL EXAMINATION: VITAL SIGNS ON PRESENTATION: Temperature 97.4, pulse 54, respiration 26, blood pressure 101/57, pulse ox 98% on room air. GENERAL APPEARANCE: Average build. Sitting up. Not in distress. EYES: Pupils equal. Conjunctivae normal. HEENT: External appearance of nose and ears normal. Oral cavity normal. NECK: JVD not raised. Mass not palpable. RESPIRATORY: Effort increased. LUNGS: Diminished breath sounds. Prolonged expiration and wheezing. CARDIOVASCULAR: First and second sounds normal. No edema. ABDOMEN: Soft, non-tender. Liver and spleen not palpable. LYMPHATIC: No lymph node palpable in neck or axillae. PSYCHIATRY: Alert and oriented x3. Mood and affect normal. NEUROLOGICAL: Pupils equal. Cranial nerves grossly intact. Power and sensation grossly intact. INVESTIGATIONS: Reviewed in clinical context. White count 10.2, hemoglobin 11.9, potassium 4.9. BUN and creatinine are normal. Accu-Cheks 284, 165. EKG tracing, personally reviewed by me, shows normal sinus rhythm, nonspecific T-wave changes. Chest x-ray film, personally reviewed by me, shows borderline cardiomegaly, no obvious infiltrates. ASSESSMENT: 1. Acute chronic obstructive pulmonary disease exacerbation in a current smoker. 2. Chronic nicotine dependence. Patient is a cigarette smoker. 3. Coronary artery disease with prior history of stent. 4. Diabetes mellitus, type 2, on oral hypoglycemic, uncontrolled from steroids. 5. Primary osteoarthritis. 6. Gastroesophageal reflux disease. 7. Anxiety not otherwise specified. 8. Chronic urinary stress incontinence. PLAN: Patient is started on nebulized bronchodilators every 4 hours, IV Solu-Medrol, inhaled steroids. Home medications are resumed. Patient will be given a nicotine patch. Care was discussed with the patient. I expect the patient to be in the hospital for at least 2 nights based on severity of COPD. DONALD / NITAN: [id number] /
[2018-07-16 17:09] LABS: Glucose,Whole Blood 154 mg/dL (75-99)
[2018-07-16] MEDS: ENOXAPARIN 40 MG/0.4 ML SYRINGE SQ SCH (17:13)
[2018-07-16] MEDS: methylPREDNISolone SOD SUCCI 40 MG/ML 1 ML VIAL IV SCH ×2 (17:29→23:40)
[2018-07-16] MEDS: NICOTINE 21MG/24HR PATCH TRANSDERM SCH (17:30)
[2018-07-16] MEDS: BUDESONIDE 1 MG/2 ML NEBU INHALATION SCH ×2 (19:03→19:11)
[2018-07-16 20:44] LABS: Glucose,Whole Blood 263 mg/dL (75-99)
[2018-07-17] MEDS: BUDESONIDE 1 MG/2 ML NEBU INHALATION SCH (07:10)
[2018-07-17] MEDS: IPRATROPIUM-ALBUTEROL 3 ML NEB INHALATION SCH ×3 (07:10→16:01)
[2018-07-17 07:19] LABS: Glucose,Whole Blood 181 mg/dL (75-99)
[2018-07-17 07:51] VITALS: RESP 18
[2018-07-17] MEDS: METOPROLOL TARTRATE 25 MG TAB PO SCH (08:47)
[2018-07-17] MEDS: ASPIRIN 81 MG PO SCH (08:47)
[2018-07-17] MEDS: metFORMIN 500 MG TAB PO SCH (08:47)
[2018-07-17] MEDS: ATORVASTATIN 80 MG TAB PO SCH (08:47)
[2018-07-17] MEDS: LISINOPRIL 5 MG TAB PO SCH (08:47)
[2018-07-17] MEDS: CLOPIDOGREL 75 MG TAB PO SCH (08:47)
[2018-07-17] MEDS: methylPREDNISolone SOD SUCCI 40 MG/ML 1 ML VIAL IV SCH (08:47)
[2018-07-17] MEDS: FUROSEMIDE 20 MG TAB PO SCH (08:47)
[2018-07-17] MEDS: NICOTINE 21MG/24HR PATCH TRANSDERM SCH (08:48)
[2018-07-17] MEDS: INSULIN ASPART (NovoLOG) 100 UNIT/ML VIAL SQ SCH ×2 (08:48→13:21)
[2018-07-17] MEDS: ENOXAPARIN 40 MG/0.4 ML SYRINGE SQ SCH (08:48)
[2018-07-17] MEDS: FERROUS SULFATE 325 MG TAB PO SCH (08:51)
[2018-07-17 12:33] LABS: Glucose,Whole Blood 160 mg/dL (75-99)
[2018-07-17 16:20] VITALS: BP 114/59; PULSE 84; TEMP 98
--- NOTE | 2018-07-17 22:36 | DS ---
DISCHARGE SUMMARY DATE OF SERVICE: 07/15/2018. DATE OF DISCHARGE: 07/17/2018. FINAL DIAGNOSES: 1. Acute chronic obstructive pulmonary disease exacerbation in a current smoker. 2. Chronic nicotine dependence, patient is a cigarette smoker. 3. Coronary artery disease with prior history of stent. 4. Diabetes mellitus type 2 on oral hypoglycemics, uncontrolled on steroids. 5. Primary osteoarthritis. 6. Gastroesophageal reflux disease. 7. Anxiety, not otherwise specified. 8. Chronic urinary stress incontinence. HOSPITAL COURSE: This is a long-standing smoker, presented with COPD exacerbation and some bronchitis. Doing much better at the time of discharge. Keen to go home. PHYSICAL EXAMINATION: Temperature 98, pulse 84, respiratory rate 18, blood pressure 104/59, pulse ox 96 percent on room air. LUNGS: Improved air entry. CARDIOVASCULAR: 1st and 2nd sounds normal. INVESTIGATIONS: Accu-Cheks noted. Today, again, patient discussed about not smoking. The patient said this was part of her habit. She has been smoking since age of close to 12 years of age. Finds it very difficult to let it go. She knows that this will harm her and is harming her. DISCUSSION AND DISCHARGE PLANNING: More than 35 minutes. DISCHARGE MEDICATIONS: 1. Ventolin HFA 2 puffs every 6 hours p.r.n. 2. Iron 325 p.o. daily. 3. Lasix 20 mg p.o. daily. 4. Metformin 1000 mg p.o. b.i.d. 5. Aspirin 81 mg p.o. daily. 6. Lipitor 80 mg p.o. daily. 7. Plavix 75 mg p.o. daily. 8. Zestril 5 mg p.o. daily. 9. Lopressor 25 mg p.o. b.i.d. 10.Atrovent HFA 2 puffs q.i.d. 11.Nicotine 21 mg patch. 12.Prednisone taper. FOLLOWUP: Follow with Merary in 2 or 3 days. MMODL / IJN: [id number] /
== END 2018-07-17 16:09 | disposition home or self-care (01) ==
LOC: EC 13:55 → 4MS4W 15:35
PROVIDERS: ADMIT Hospitalist; ATTEND Hospitalist
DX: J44.1 Chronic obstructive pulmonary disease with (acute) exacerbation (principal); I25.10 Atherosclerotic heart disease of native coronary artery without angina pectoris; E11.9 Type 2 diabetes mellitus without complications; F41.0 Panic disorder [episodic paroxysmal anxiety]; N39.3 Stress incontinence (female) (male); K21.9 Gastro-esophageal reflux disease without esophagitis; F41.9 Anxiety disorder, unspecified; F17.210 Nicotine dependence, cigarettes, uncomplicated; M19.91 Primary osteoarthritis, unspecified site; Z71.6 Tobacco abuse counseling; Z95.5 Presence of coronary angioplasty implant and graft; Z79.82 Long term (current) use of aspirin; Z79.84 Long term (current) use of oral hypoglycemic drugs; Z79.02 Long term (current) use of antithrombotics/antiplatelets; Z79.899 Other long term (current) drug therapy; Z90.711 Acquired absence of uterus with remaining cervical stump; Z88.1 Allergy status to other antibiotic agents; Z60.2 Problems related to living alone
CPT/HCPCS: 96376 ×3; 96361 ×3; 96374; 99285; 36415; 94640 ×5; 94760; 93005; 80053; 85025; 85610; 85730; 71046; G0378 ×3; J2920 ×2; J2930 ×2

== ENCOUNTER 2018-10-26 04:31 | Observation (INO) | payer MEDICARE ==
--- NOTE | 2018-10-26 04:50 | ED ---
Chest Pain HPI - General Chief Complaint: Chest Pain Stated Complaint: Chest Pain Time Seen by Provider: 10/26/18 04:42 Source: patient, EMS Mode of arrival: EMS Limitations: no limitations - History of Present Illness Initial Comments: 's patient is an 83-year-old woman who presents to be evaluated for pain in the left side of her chest including around the midaxillary area on the left. Patient states that it had come on tonight while she was in bed. She describes it as a constant, moderately severe, heavy type feeling. After about 30 minutes of it not going away she called EMS who brought her here to be evaluated. They did give a dose of fentanyl which she states has relieve the pain a bit. She declines further analgesia at the moment. She denies any associated symptoms other than stay she does have a bit of a cough with occasional sputum that she believes is somewhat chronic given her smoking. Denies associated symptoms, see the review of systems. MD Complaint: chest pain Onset/Timin -: hour(s) Onset: during rest Pain Location: left chest Pain Radiation: none Severity: moderate Quality: heaviness Consistency: constant Improves With: nothing Worsens With: nothing Other Symptoms: cough Treatments Prior to Arrival: other - Related Data On Oral Contraceptives: No Home Medications Medication Instructions Recorded Confirmed Albuterol Inhaler [Ventolin Hfa 2 inhalation PO RT-Q6H PRN 12/22/17 07/15/18 Inhaler] Ferrous Sulfate [Iron (65 MG 325 mg PO DAILY 12/22/17 07/15/18 Elemental)] Furosemide [Lasix] 20 mg PO DAILY 12/22/17 07/15/18 metFORMIN HCL 1,000 mg PO BID 12/22/17 07/15/18 Previous Rx's Medication Instructions Recorded Aspirin 81 mg PO DAILY #30 chew 12/24/17 Atorvastatin [Lipitor] 80 mg PO DAILY #30 tab 12/24/17 Clopidogrel [Plavix] 75 mg PO DAILY #303 tab 12/24/17 Lisinopril [Zestril] 5 mg PO DAILY #30 tab 12/24/17 Metoprolol Tartrate [Lopressor] 25 mg PO BID #60 tab 12/24/17 Ipratropium [place] [Atrovent Hfa] 2 puff INHALATION QID #1 inhaler 07/17/18 Nicotine 21Mg/24Hr Patch [Habitrol] 1 patch TRANSDERM Q24H #30 patch 07/17/18 predniSONE 10 mg PO DAILY #30 tab 07/17/18 Allergies Allergy/AdvReac Type Severity Reaction Status Date / Time levofloxacin Allergy Anaphylaxis Verified 07/15/18 14:26 Review of Systems ROS Statement: Those systems with pertinent positive or pertinent negative responses have been documented in the HPI. ROS Other: All systems not noted in ROS Statement are negative. Constitutional: Denies: fever, chills Respiratory: Reports: cough. Denies: dyspnea, wheezes Cardiovascular: Reports: chest pain. Denies: palpitations, orthopnea, edema Gastrointestinal: Denies: abdominal pain, nausea, vomiting Genitourinary: Denies: dysuria, hematuria Musculoskeletal: Denies: back pain Skin: Denies: rash Neurological: Denies: headache, weakness EKG Findings - EKG Results: EKG: interpreted by MARY, sinus rhythm, normal axis, normal QRS, normal ST/T, no acute changes EKG shows: bradycardia (Rate 56 bpm) Past Medical History Past Medical History: Chest Pain / Angina, COPD, Diabetes Mellitus, Osteoarthritis (OA) History of Any Multi-Drug Resistant Organisms: None Reported Past Surgical History: Bowel Resection, Cholecystectomy, Heart Catheterization With Stent Additional Past Surgical History / Comment(s): Partial hysterectomy Past Anesthesia/Blood Transfusion Reactions: No Reported Reaction Date of Last Stent Placement:: 10/2017 Past Psychological History: Anxiety, Panic Disorder Smoking Status: Current every day smoker Past Alcohol Use History: None Reported Past Drug Use History: None Reported - Past Family History Mother History Unknown: Yes General Exam Limitations: no limitations General appearance: alert, in no apparent distress Head exam: Present: atraumatic, normocephalic Eye exam: Present: normal appearance. Absent: scleral icterus, conjunctival injection Respiratory exam: Present: rhonchi. Absent: respiratory distress, wheezes, rales, stridor, chest wall tenderness, accessory muscle use, decreased breath sounds Cardiovascular Exam: Present: normal rhythm, bradycardia, normal heart sounds. Absent: regular rate, tachycardia, systolic murmur, diastolic murmur, rubs, gallop GI/Abdominal exam: Present: soft. Absent: distended, tenderness, guarding, rebound, rigid, mass Extremities exam: Present: normal inspection, normal capillary refill. Absent: pedal edema, calf tenderness Back exam: Present: normal inspection. Absent: CVA tenderness (R), CVA tenderness (L) Neurological exam: Present: alert Skin exam: Present: warm, dry, intact, normal color. Absent: rash Course Vital Signs 10/26/18 04:38 Temperature 98.1 F Pulse Rate 54 L Respiratory 20 Rate Blood Pressure 100/54 O2 Sat by Pulse 100 Oximetry Chest Pain MDM - [facility] 's patient is an 83-year-old woman with left-sided chest pain whose initial workup here is negative. She at time my reevaluation remains chest pain-free. Given that the pain onset so close to her time of presentation will admit the patient for serial cardiac enzymes and telemetry monitoring. She does again remained symptom-free. Disposition Clinical Impression: Chest pain Disposition: ADMITTED IP TO THIS HOSP Condition: Good Instructions (If sedation given, give patient instructions): Chest Pain (ED) Is patient prescribed a controlled substance at d/c from ED?: No Referrals: Luisito Reagan MD [Primary Care Provider] - 1-2 days
[2018-10-26 05:10] LABS: Anisocytosis Slight; Basophils % (A) 0 %; Eosinophils # (A) 0.3 k/uL (0-0.7); Eosinophils % (A) 4 %; HCT 29.2 % (34.0-46.0); Hypochromasia Slight; Lymphocytes # (A) 2.4 k/uL (1.0-4.8); Lymphocytes % (A) 29 %; MCH 30.1 pg (25.0-35.0); MCHC 30.8 g/dL (31.0-37.0); MCV 97.8 fL (80.0-100.0); Macrocytosis Slight; Mean Platelet Volume 7.7; Monocytes # (A) 0.3 k/uL (0-1.0); Monocytes % (A) 3 %; Neutrophils # (A) 5.2 k/uL (1.3-7.7); Neutrophils % (A) 63 %; Platelet Count 291 k/uL (150-450); RBC 2.99 m/uL (3.80-5.40); RDW 18.2 % (11.5-15.5); WBC 8.2 k/uL (3.8-10.6)
[2018-10-26 05:20] LABS: Albumin 3.4 g/dL (3.5-5.0); Calcium 8.5 mg/dL (8.4-10.2); Magnesium 1.9 mg/dL (1.6-2.3); Total Bilirubin 0.6 mg/dL (0.2-1.3); Total Protein 5.5 g/dL (6.3-8.2)
[2018-10-26 05:26] LABS: Potassium 4.3 mmol/L (3.5-5.1)
[2018-10-26 05:27] LABS: D-Dimer 0.47 mg/L FEU (<0.60); INR 0.9 (<1.2); Partial Thromboplastin Time 22.7 sec (22.0-30.0); Prothrombin Time 10.1 sec (9.0-12.0)
--- NOTE | 2018-10-26 05:35 | XR ---
EXAM: XR Chest, 2 Views CLINICAL HISTORY: Chest pain TECHNIQUE: Frontal and lateral views of the chest. COMPARISON: Chest x-ray dated 07/15/2017 FINDINGS: Lungs: Hyperinflated lungs suggesting COPD. Pleural space: Unremarkable. No pneumothorax. Heart: Unremarkable. No cardiomegaly. Mediastinum: Unremarkable. Bones/joints: Unremarkable. IMPRESSION: No acute findings.
[2018-10-26] MEDS ORDERED: NITROGLYCERIN SL TABS 0.4 MG TAB SUBLINGUAL PRN (06:16)
[2018-10-26] MEDS: NICOTINE 21MG/24HR PATCH TRANSDERM SCH (07:44)
[2018-10-26] MEDS: IPRATROPIUM 0.5 MG/2.5 ML NEBU INHALATION SCH ×4 (08:31→20:53)
[2018-10-26] MEDS: ALBUTEROL NEBULIZED 2.5 MG/3 ML INHALATION PRN ×2 (08:31→15:57)
[2018-10-26 09:17] LABS: Glucose,Whole Blood 107 mg/dL (75-99)
[2018-10-26] MEDS: metFORMIN 500 MG TAB PO SCH ×2 (09:17→17:04)
[2018-10-26] MEDS: ATORVASTATIN 80 MG TAB PO SCH (09:18)
[2018-10-26] MEDS: ASPIRIN 81 MG PO SCH (09:18)
[2018-10-26] MEDS: LISINOPRIL 5 MG TAB PO SCH (09:19)
[2018-10-26] MEDS: FERROUS SULFATE 325 MG TAB PO SCH (09:19)
[2018-10-26] MEDS: CLOPIDOGREL 75 MG TAB PO SCH (09:19)
[2018-10-26] MEDS: FUROSEMIDE 20 MG TAB PO SCH (09:19)
[2018-10-26] MEDS: METOPROLOL TARTRATE 25 MG TAB PO SCH ×2 (09:20→22:20)
[2018-10-26] MEDS: predniSONE 10 MG TAB PO SCH (09:24)
--- NOTE | 2018-10-26 13:51 | P.CRDCN ---
History of Present Illness History of present illness: This is a pleasant 83-year-old female past medical history significant for coronary artery disease s/p stent placement to mid circumflex December 2017, dyslipidemia, hypertension, COPD, diabetes mellitus and chronic nicotine dependence. Follows in the office with Dr. Estrada. We have been asked to see her in consultation secondary to chest discomfort. She does seem to have some memory impairment and most information is obtained from the medical record as well as the nursing staff. She presented to the hospital early this morning with symptoms of chest discomfort on the left side that radiates somewhat into the mid axillary region. There is no pain down the left arm, into the neck or into the jaw. She describes the discomfort as a sharp heavy and then achy sensation in the chest. This woke her up suddenly in the middle of the night and lasted approximately 30 minutes prior to calling EMS. Per the patient she states when EMS arrived they told her heart rate was on the low side. There is no documentation from EMS for review. Since arriving in the hospital the s ignificant chest discomfort had subsided however she continues to complain of an achy sensation that is mildly reproducible in the left precordial region. She is seen and examined sitting up in bed in no acute distress. She complains of mild shortness of breath but no worse than her baseline. She denies palpitations, nausea, vomiting, dizziness or diaphoresis. EKG reveals sinus bradycardia heart rate of [address] or T wave abnormalities noted. Chest x-ray is negative for an acute cardiopulmonary process. Laboratory data reviewed, WBC 8.2, hemoglobin 9, platelets 291, d-dimer 0.47, sodium 139, potassium 4.3, creatinine 0.8, cardiac enzymes negative 2. Current cardiac medications include Plavix 75 mg daily, aspirin 81 mg daily, atorvastatin 80 mg daily, Lasix 20 mg daily, lisinopril 5 mg daily and Lopressor 25 mg twice a day. Most recent echocardiogram obtained December 2017 reveals preserved LV systolic function with ejection fraction 50-55%, mild aortic valve sclerosis. At the time of my exam: CONSTITUTIONAL: Denies fever. Denies chills. EYES: Denies blurred vision. Denies vision changes. Denies eye pain. EARS, NOSE, MOUTH & THROAT: Denies headache. Denies sore throat. Denies ear pain. CARDIOVASCULAR: Complains of mild achy chest discomfort. Denies shortness of breath. Denies orthopnea. Denies PND. Denies palpitations. RESPIRATORY: Denies cough. GASTROINTESTINAL: Denies abdominal pain. Denies diarrhea. Denies constipation. Denies nausea. Denies vomiting. MUSCULOSKELETAL: Denies myalgias. INTEGUMENTARY: Denies pruitis. Denies rash. NEUROLOGIC: Denies numbness. Denies tingling. Denies weakness. PSYCHIATRIC: Denies anxiety. Denies depression. ENDOCRINE: Denies fatigue. Denies weight change. Denies polydipsia. Denies polyurina. GENITOURINARY: Denies burning, hematuria or urgency with micturation. HEMATOLOGIC: Denies history of anemia. Denies bleeding. Blood pressure 154/66 heart rate 58 afebrile maintaining oxygen saturation on room air GENERAL: This is a 83-year-old female in no apparent distress at the time of my examination. HEENT: Head is atraumatic, normocephalic. Pupils are equal, round. Sclerae anicteric. Conjunctivae are clear. Mucous membranes of the mouth are moist. Neck is supple. There is no jugular venous distention. No carotid bruit is heard. LUNGS: Mild chest wall tenderness is noted on palpation. Diminished bilaterall y. Faint scattered rhonchi at the bases. Does clear somewhat cough. No rales or wheezes. HEART: Regular rate and rhythm without murmurs, rubs or gallops. S1 and S2 heard. ABDOMEN: Soft, nontender. Bowel sounds are heard. No organomegaly noted. EXTREMITIES: No evidence of peripheral edema and no calf tenderness noted. VASCULAR: Radial and dorsalis pedis pulses palpated, no evidence of clubbing. NEUROLOGIC: Patient is awake, alert and oriented x3. Episodes of confusion. ASSESSMENT Chest pain, atypical for angina. No EKG evidence of ischemia. History of coronary artery disease status post placement maintained on dual antiplatelet therapy Hypertension COPD Dyslipidemia Diabetes mellitus Chronic nicotine dependence Memory impairment PLAN Symptoms are atypical for angina however we'll continue to obtain serial cardiac enzymes rule out an acute coronary event. Repeat 2-D echocardiogram and Doppler study to assess cardiac structure and function. Check TSH. Ongoing telemetry monitoring to assess for bradycardia arrhythmia. Smoking cessation highly recommended. Thank you kindly for this consultation. Nurse Practitioner note has been reviewed, I agree with a documented findings and plan of care. Patient was seen and examined. Past Medical History Past Medical History: Coronary Artery Disease (CAD), Chest Pain / Angina, COPD, Diabetes Mellitus, GERD/Reflux, Hypertension, Osteoarthritis (OA), Pneumonia Additional Past Medical History / Comment(s): NIDDM type II, chronic low back pain, R carpal tunnel syndrome, PUD, diverticulitis, bronchitis, urinary stress incontinence, pt is on lasix but does not recall reason. History of Any Multi-Drug Resistant Organisms: None Reported Past Surgical History: Bowel Resection, Cholecystectomy, Heart Catheterization With Stent, Hysterectomy, Tonsillectomy Additional Past Surgical History / Comment(s): Partial hysterectomy, one ovary removed d/t cyst-pt cannot recall laterallity, bowel resection d/t diverticulitis, bilateral cataract removals/lens implants. Past Anesthesia/Blood Transfusion Reactions: No Reported Reaction Date of Last Stent Placement:: 12/2017 Smoking Status: Current every day smoker - Past Family History Mother History Unknown: Yes Additional Family Medical History / Comment(s): Mother had migraines. Father Family Medical History: No Reported History Additional Family Medical History / Comment(s): Father was healthy. Medications and Allergies Home Medications Medication Instructions Recorded Confirmed Type Albuterol Inhaler [Ventolin Hfa 2 puff INHALATION RT-QID PRN 12/22/17 10/26/18 History Inhaler] Ferrous Sulfate [Iron (65 MG 325 mg PO DAILY 12/22/17 10/26/18 History Elemental)] Furosemide [Lasix] 20 mg PO DAILY 12/22/17 10/26/18 History metFORMIN HCL 1,000 mg PO BID 12/22/17 10/26/18 History Aspirin 81 mg PO DAILY #30 chew 12/24/17 10/26/18 Rx Atorvastatin [Lipitor] 80 mg PO DAILY #30 tab 12/24/17 10/26/18 Rx Clopidogrel [Plavix] 75 mg PO DAILY #303 tab 12/24/17 10/26/18 Rx Lisinopril [Zestril] 5 mg PO DAILY #30 tab 12/24/17 10/26/18 Rx Metoprolol Tartrate [Lopressor] 25 mg PO BID #60 tab 12/24/17 10/26/18 Rx Ipratropium [place] [Atrovent Hfa] 2 puff INHALATION RT-QID PRN 10/26/18 10/26/18 History Allergies Allergy/AdvReac Type Severity Reaction Status Date / Time levofloxacin Allergy Anaphylaxis Verified 10/26/18 07:25 Physical Exam Vitals: Vital Signs Temp Pulse Pulse Resp BP BP Pulse Ox 10/26/18 10:00 58 L 18 154/66 98 10/26/18 08:45 73 10/26/18 08:31 70 10/26/18 07:30 55 L 20 126/61 99 10/26/18 07:00 60 18 111/48 99 10/26/18 06:20 55 L 4 L 111/48 96 10/26/18 06:10 50 L 11 L 111/48 94 L 10/26/18 06:00 50 L 21 114/92 96 10/26/18 05:50 58 L 29 H 114/92 96 10/26/18 05:40 60 8 L 114/92 96 10/26/18 05:30 49 L 18 114/92 96 10/26/18 05:20 52 L 0 L 114/92 96 10/26/18 05:10 50 L 6 L 114/92 94 L 10/26/18 05:00 51 L 19 100/59 95 10/26/18 04:50 48 L 10 L 100/59 97 10/26/18 04:40 58 L 10 L 100/59 96 10/26/18 04:38 98.1 F 54 L 20 100/54 100 10/26/18 04:34 95 Intake and Output 10/25/18 10/26/18 10/26/18 22:59 06:59 14:59 Other: Weight 70.307 kg Results 10/26/18 04:38 10/26/18 04:38 Cardiac Enzymes 10/26/18 10/26/18 10/26/18 Range/Units 04:38 04:38 11:11 AST 53 H (14-36) U/L Troponin I <0.012 <0.012 (0.000-0.034) ng/mL Coagulation 10/26/18 Range/Units 04:38 PT 10.1 (9.0-12.0) sec APTT 22.7 (22.0-30.0) sec CBC 10/26/18 Range/Units 04:38 WBC 8.2 (3.8-10.6) k/uL RBC 2.99 L (3.80-5.40) m/uL Hgb 9.0 L (11.4-16.0) gm/dL Hct 29.2 L (34.0-46.0) % Plt Count 291 (150-450) k/uL Comprehensive Metabolic Panel 10/26/18 Range/Units 04:38 Sodium 139 (137-145) mmol/L Potassium 4.3 (3.5-5.1) mmol/L Chloride 110 H (98-107) mmol/L Carbon Dioxide 22 (22-30) mmol/L BUN 12 (7-17) mg/dL Creatinine 0.80 (0.52-1.04) mg/dL Glucose 96 (74-99) mg/dL Calcium 8.5 (8.4-10.2) mg/dL AST 53 H (14-36) U/L ALT 18 (9-52) U/L Alkaline Phosphatase 84 (38-126) U/L Total Protein 5.5 L (6.3-8.2) g/dL Albumin 3.4 L (3.5-5.0) g/dL Current Medications Generic Name Dose Route Start Last Admin Trade Name Freq PRN Reason Stop Dose Admin Albuterol Sulfate 2.5 mg 10/26/18 06:21 10/26/18 08:31 Ventolin Nebulized INHALATION 2.5 mg RT-Q6H PRN Administration Shortness Of Breath Aspirin 81 mg 10/26/18 09:00 10/26/18 09:18 Aspirin PO 81 mg DAILY GEN Administration Atorvastatin Cal[place] 80 mg 10/26/18 09:00 10/26/18 09:18 Lipitor PO 80 mg DAILY GEN Administration Clopidogrel Bisulfate 75 mg 10/26/18 09:00 10/26/18 09:19 Plavix PO 75 mg DAILY EGN Administration Ferrous Sulfate 325 mg 10/26/18 09:00 10/26/18 09:19 Feosol PO 325 mg DAILY GEN Administration Furosemide 20 mg 10/26/18 09:00 10/26/18 09:19 Lasix PO 20 mg DAILY GEN Administration Ipratropium [place] 0.5 mg 10/26/18 08:00 10/26/18 08:31 Atrovent Nebulized INHALATION 0.5 mg RT-QID GEN Administration Lisinopril 5 mg 10/26/18 09:00 10/26/18 09:19 Zestril PO 5 mg DAILY GEN Administration Metformin HCl 1,000 mg 10/26/18 07:30 10/26/18 09:17 Glucophage PO 1,000 mg AC-BID GEN Administration Metoprolol Tartrate 25 mg 10/26/18 09:00 10/26/18 09:20 Lopressor PO 25 mg BID GEN Administration Nicotine 1 patch 10/26/18 07:00 10/26/18 07:44 Habitrol 21mg/24hr Patch TRANSDERM Not Given Q24H GEN Nitroglycerin 0.4 mg 10/26/18 06:16 Nitrostat SUBLINGUAL Q5M PRN Chest Pain Prednisone 10 mg 10/26/18 09:00 10/26/18 09:24 PO 10 mg DAILY GEN Administration Sodium Chloride 10 ml 10/26/18 09:00 Saline Flush IV BID GEN Intake and Output 10/25/18 10/26/18 10/26/18 22:59 06:59 14:59 Other: Weight 70.307 kg 10/26/18 04:38 10/26/18 04:38
--- NOTE | 2018-10-26 16:29 | HP ---
HISTORY AND PHYSICAL DATE OF ADMISSION: 10/26/2018 DATE OF SERVICE: 10/26/2018 PRESENTING COMPLAINT: Chest pain. HISTORY OF PRESENTING COMPLAINT: This is a very pleasant 83-year-old patient who follows with Dr. Reagan. Chronic stable medical conditions include diabetes, osteoarthritis, urinary stress incontinence, GERD, anxiety. The patient continues to smoke cigarettes and also has COPD. She woke up in the early hours of this morning with left precordial pain which wrapped around the left axilla. It lasted for probably half an hour, then settled down on its own. Patient did get a bit short of breath after that. There was no dizziness. No lightheadedness. No perspiration. No exacerbating or relieving factors. Given the history of coronary artery disease with stent, the patient came in, was admitted with a diagnosis of unstable angina. REVIEW OF SYSTEMS: CONSTITUTIONAL: None. HEENT: None. RESPIRATORY: Occasional wheezing. CARDIOVASCULAR: As above. GASTROINTESTINAL: None. GENITOURINARY: None. MUSCULOSKELETAL: Pain in the joints. DERMATOLOGICAL: None. HEMATOLOGICAL: None. LYMPHATICS: None. PSYCHIATRY: None. NEUROLOGICAL: None. PAST MEDICAL HISTORY: 1. Coronary artery disease with stent. 2. COPD. 3. Diabetes. 4. Osteoarthritis. 5. Urinary stress incontinence. 6. GERD. 7. Anxiety. PAST SURGICAL HISTORY: 1. Cardiac cath with stent. 2. Bowel resection. 3. Partial hysterectomy. 4. Cholecystectomy. SOCIAL HISTORY: Lives alone. Patient has been smoking up to 3 packs a day for over 50 years. No alcohol. FAMILY HISTORY: Reviewed; noncontributory to presentation. HOME MEDICATIONS: 1. Metformin 1000 mg b.i.d. 2. Lopressor 25 mg b.i.d. 3. Zestril 5 mg daily. 4. Atrovent HFA 2 puffs q.i.d. p.r.n. 5. Lasix 20 mg p.o. daily. 6. Iron 325 mg p.o. daily. 7. Plavix 75 mg p.o. daily. 8. Lipitor 80 mg p.o. daily. 9. Aspirin 81 mg p.o. daily. 10.Ventolin HFA 2 puffs q.i.d. p.r.n. ALLERGIES: LEVAQUIN. PHYSICAL EXAMINATION: VITAL SIGNS ON PRESENTATION: Temperature 98, pulse 54, respiration 20, blood pressure 100/54, pulse ox 100% on room air. GENERAL APPEARANCE: Average build. Sitting up. Not in distress. EYES: Pupils equal. Conjunctivae normal. HEENT: External appearance of nose and ears normal. Oral cavity normal. NECK: JVD not raised. Mass not palpable. RESPIRATORY: Effort normal. LUNGS: Diminished breath sounds. CARDIOVASCULAR: First and second sounds normal. No edema. ABDOMEN: Soft, non-tender. Liver and spleen not palpable. LYMPHATIC: No lymph node palpable in neck or axillae. PSYCHIATRY: Alert and oriented x3. Mood and affect normal. NEUROLOGICAL: Pupils equal. Cranial nerves grossly intact. Power and sensation grossly intact. MUSCULOSKELETAL: Evidence of osteoarthritis, especially in the hands. INVESTIGATIONS: White count 8.2, hemoglobin 9.0, platelets 291. Potassium 4.3. BUN creatinine normal. Troponin x2 negative. EKG tracing, personally reviewed by me, shows normal sinus rhythm. Chest x-ray film, personally reviewed by me, shows possible cardiomegaly, some prominent interstitium. ASSESSMENT: 1. Left precordial pain, possibly unstable angina in a patient with known coronary artery disease. Continues to smoke. 2. Chronic nicotine dependence. Patient is a cigarette smoker. 3. Chronic obstructive pulmonary disease in a current smoker. 4. Coronary artery disease with prior history of stent. 5. Diabetes mellitus, type 2, on oral hypoglycemic. 6. Primary osteoarthritis. 7. Gastroesophageal reflux disease. 8. Anxiety not otherwise specified. 9. Chronic urinary stress incontinence. PLAN: Patient is on aspirin. Cardiology was consulted, who ordered a 2D echo. Home medications are resumed. I did try to advise patient about smoking. She says if she stops smoking she will . Will follow with Cardiology. MMODL / IJN: [id number] /
--- NOTE | 2018-10-26 19:25 | ECHOF ---
Referral Reason: MEASUREMENTS -------- HEIGHT: 170.2 cm WEIGHT: 70.3 kg BP: 154/66 RVIDd: 3.0 cm (< 3.3) IVSd: 1.3 cm (0.6 - 1.1) LVIDd: 4.8 cm (3.9 - 5.3) LVPWd: 1.5 cm (0.6 - 1.1) IVSs: 1.7 cm LVIDs: 3.3 cm LVPWs: 1.7 cm LAESV Index (A-L): 23.09 ml/m Ao Diam: 2.6 cm (2.0 - 3.7) AV Cusp: 1.3 cm (1.5 - 2.6) LA Diam: 3.8 cm (2.7 - 3.8) MV EXCURSION: 11.128 mm (> 18.000) MV EF SLOPE: 60 mm/s (70 - 150) EPSS: 0.2 cm MV E Gil: 1.78 m/s MV DecT: 205 ms MV A Gil: 1.59 m/s MV E/A Ratio: 1.12 AV maxP.15 mmHg AV meanP.46 mmHg RAP: 5.00 mmHg RVSP: 18.57 mmHg FINDINGS -------- Sinus rhythm. This was a technically difficult study with suboptimal apical views. The left ventricular size is normal. There is mild concentric left ventricular hypertrophy. Overa ll left ventricular systolic function is normal with, an EF between 55 - 60 %. The right ventricle is normal in size. Normal LA size by volume 22+/-6 ml/m2. The right atrial size is normal. xx ml of Lumason was utilized for enhancement of images. Interatrial and interventricular septum intact. There is mild aortic stenosis present. Peak/mean gradient across the Aortic Valve is 23.15mmHg / 12 .46mmHg. Mild mitral regurgitation is present. Mild tricuspid regurgitation present. There is no evidence of pulmonary hypertension. The right v entricular systolic pressure, as measured by Doppler, is 18.57mmHg. The pulmonic valve is normal. The aortic root size is normal. The inferior vena cava is mildly dilated. Echo free space indicative of a pericardial fat pad. CONCLUSIONS -------- 1. Sinus rhythm. 2. This was a technically difficult study with suboptimal apical views. 3. The left ventricular size is normal. 4. There is mild concentric left ventricular hypertrophy. 5. Overall left ventricular systolic function is normal with, an EF between 55 - 60 %. 6. The right ventricle is normal in size. 7. Normal LA size by volume 22+/-6 ml/m2. 8. The right atrial size is normal. 9. xx ml of Lumason was utilized for enhancement of images. 10. Interatrial and interventricular septum intact. 11. There is mild aortic stenosis present. 12. Peak/mean gradient across the Aortic Valve is 23.15mmHg / 12.46mmHg. 13. Mild mitral regurgitation is present. 14. Mild tricuspid regurgitation present. 15. There is no evidence of pulmonary hypertension. 16. The right ventricular systolic pressure, as measured by Doppler, is 18.57mmHg. 17. The pulmonic valve is normal. 18. The aortic root size is normal. 19. The inferior vena cava is mildly dilated. MILK PICKUP DRIVER: Ashlee Silvestre RDCS
[2018-10-27 03:37] LABS: Cholesterol 80 mg/dL (<200); HDL Cholesterol 25 mg/dL (40-60); LDL Cholesterol,Calculated 39 mg/dL (0-99); Triglycerides 82 mg/dL (<150)
[2018-10-27] MEDS: ASPIRIN 81 MG PO SCH (07:58)
[2018-10-27] MEDS: metFORMIN 500 MG TAB PO SCH (07:58)
[2018-10-27] MEDS: predniSONE 10 MG TAB PO SCH (07:59)
[2018-10-27] MEDS: CLOPIDOGREL 75 MG TAB PO SCH (07:59)
[2018-10-27] MEDS: ATORVASTATIN 80 MG TAB PO SCH (07:59)
[2018-10-27] MEDS: METOPROLOL TARTRATE 25 MG TAB PO SCH (07:59)
[2018-10-27] MEDS: FUROSEMIDE 20 MG TAB PO SCH (07:59)
[2018-10-27] MEDS: LISINOPRIL 5 MG TAB PO SCH (07:59)
[2018-10-27] MEDS: FERROUS SULFATE 325 MG TAB PO SCH (07:59)
[2018-10-27] MEDS: NICOTINE 21MG/24HR PATCH TRANSDERM SCH (08:00)
[2018-10-27] MEDS: IPRATROPIUM 0.5 MG/2.5 ML NEBU INHALATION SCH ×2 (08:41→11:23)
[2018-10-27] MEDS ORDERED: ASPIRIN 325 MG TAB PO SCH (09:00)
--- NOTE | 2018-10-27 12:04 | P.PN ---
Subjective Progress Note Date: 10/27/18 This is a pleasant 83-year-old female past medical history significant for coronary artery disease s/p stent placement to mid circumflex December 2017, dyslipidemia, hypertension, COPD, diabetes mellitus and chronic nicotine dependence. Follows in the office with Dr. Estrada. We have been asked to see her in consultation secondary to chest discomfort. She had complaints of atypical left-sided chest discomfort that was somewhat reproducible. Troponins were negative 3. EKG showed sinus bradycardia with no ST-T wave abnormalities significant for ischemia. Echocardiogram showed normal LV size and systolic function with an ejection fraction between 55-60%, no wall motion abnormalities, mild aortic stenosis, mild mitral regurgitation and mild tricuspid regurgitation with no evidence of pulmonary hypertension. Upon examination, patient is resting comfortable in bed. She denies further complaints of chest discomfort. She is hoping to go home today. Objective - Vital Signs Vital signs: Vital Signs Temp 97.8 F 10/27/18 05:00 Pulse 68 10/27/18 11:35 Resp 16 10/27/18 05:00 BP 132/62 10/27/18 05:00 Pulse Ox 97 10/27/18 05:12 Intake & Output 10/26/18 10/27/18 10/27/18 18:59 06:59 18:59 Intake Total 240 Balance 240 Intake: Oral 240 Other: Voiding Method Toilet Toilet # Voids 1 - Exam PHYSICAL EXAMINATION: HEENT: Head is atraumatic, normocephalic. Pupils equal, round. Neck is supple. There is no elevated jugular venous pressure. No carotid bruit. HEART EXAMINATION: Heart sounds regular, S1 and S2 with a systolic ejection murmur at the base. CHEST EXAMINATION: Lungs are clear to auscultation with diminished air entry. No chest wall tenderness is noted on palpation or with deep breathing. ABDOMEN: Soft, nontender. Bowel sounds are heard. No organomegaly noted. EXTREMITIES: 2+ peripheral pulses with no evidence of peripheral edema and no calf tenderness noted. NEUROLOGIC patient is awake, alert and oriented x3. . - Labs CBC & Chem 7: 10/26/18 04:38 10/26/18 04:38 Labs: Abnormal Lab Results - Last 24 Hours (Table) 10/26/18 Range/Units 04:38 HDL Cholesterol 25 L (40-60) mg/dL Assessment and Plan Assessment: #1 Chest pain, atypical for angina. No EKG evidence of ischemia. Negative cardiac enzymes #2 History of coronary artery disease status post placement maintained on dual antiplatelet therapy #3 Hypertension #4 COPD #5 Dyslipidemia #6 Diabetes mellitus #7 Chronic nicotine dependence #8 Memory impairment Plan: From cardiology's perspective, symptoms are atypical for angina, acute coronary event has been ruled out. She's had no documented significant bradycardia and no symptoms of bradycardia. Discussed smoking cessation with the patient who is resistant to quitting and has no plans to quit. From our standpoint, patient may be discharged home and follow-up with Dr. Estrada in the office. BRUSH FINISHER note has been reviewed, I agree with a documented findings and plan of care. Patient was seen and examined.
[2018-10-27 12:30] VITALS: BP 108/53; PULSE 63; RESP 17; TEMP 98.3
--- NOTE | 2018-10-27 13:05 | P.DS ---
Providers Date of admission: 10/26/18 06:17 Attending physician: Wilton Serrano Consults: 10/26/18 06:17 Consult Physician Routine Consulting Provider: Razia Mederos Consult Reason/Comments: chest pain Do you want consulting provider notified?: Yes Primary care physician: Luisito Reagan [facility] Course: Diagnoses: Chest pain. Patient is without chest pain for the last 2 days. Cleared by cardiology for discharge History of COPD and chronic bronchitis, not in acute exacerbation exacerbation Type 2 diabetes mellitus History of coronary artery disease History of GERD Hypertension Chronic low back pain History of urinary stress incontinence Hospital course: This is a pleasant 83 years old female with past medical history of coronary artery disease, COPD, every day smoker. diabetes mellitus type 2, GERD, hypertension, chronic low back pain, urinary stress incontinence. Patient presents with signs symptoms of chest pain and discomfort with history of smoking cigarettes. Patient has been evaluated by cardiology team. She has negative cardiac enzymes, troponins. Echocardiogram was done showing ejection fraction 55-60%. D-dimer is negative. Patient is not tachypneic or hypoxic. The possibility of PE is very low. Patient symptoms have improved since she came in and for the last 2 days she has no chest pain. Patient has been cleared by cardiology team for discharge. On the day of discharge patient remains without chest pain. She denies dyspnea. She has a chronic cough for many years in view of her history of smoking and chronic bronchitis. No change in urine or bowel habits. No fever. She is able to ambulate, using her cane without difficulty. Vitals are stable and she should saturating 94% on room air. Patient with no signs of tachypnea Patient was eager to go home today. Problems and management plan were discussed with the patient and he verbalized understanding and acceptance Patient was found stable and can be discharged home however he needs follow-up as an outpatient. 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 Patient agrees with the appointments made for her she said she will follow-up. Gen: patient is a AAOx3, no distress CVS: S1-S2, RRR, no murmur Lungs: B/L CTA, no wheezing Abdomen: soft, no distention, no tenderness, positive bowel sounds Extremity: no leg edema or induration Time spent more than 35 minutes Patient Condition at Discharge: Good Plan - Discharge Summary Discharge Rx Participant: No New Discharge Prescriptions: No Action metFORMIN HCL 1,000 mg PO BID Furosemide [Lasix] 20 mg PO DAILY Ferrous Sulfate [Iron (65 MG Elemental)] 325 mg PO DAILY Albuterol Inhaler [Ventolin Hfa Inhaler] 2 puff INHALATION RT-QID PRN PRN Reason: Shortness Of Breath Aspirin 81 mg PO DAILY #30 chew Clopidogrel [Plavix] 75 mg PO DAILY #303 tab Lisinopril [Zestril] 5 mg PO DAILY #30 tab Metoprolol Tartrate [Lopressor] 25 mg PO BID #60 tab Atorvastatin [Lipitor] 80 mg PO DAILY #30 tab Ipratropium [place] [Atrovent Hfa] 2 puff INHALATION RT-QID PRN PRN Reason: Shortness Of Breath Discharge Medication List Albuterol Inhaler [Ventolin Hfa Inhaler] 2 puff INHALATION RT-QID PRN 12/22/17 [History] Ferrous Sulfate [Iron (65 MG Elemental)] 325 mg PO DAILY 12/22/17 [History] Furosemide [Lasix] 20 mg PO DAILY 12/22/17 [History] metFORMIN HCL 1,000 mg PO BID 12/22/17 [History] Aspirin 81 mg PO DAILY #30 chew 12/24/17 [Rx] Atorvastatin [Lipitor] 80 mg PO DAILY #30 tab 12/24/17 [Rx] Clopidogrel [Plavix] 75 mg PO DAILY #303 tab 12/24/17 [Rx] Lisinopril [Zestril] 5 mg PO DAILY #30 tab 12/24/17 [Rx] Metoprolol Tartrate [Lopressor] 25 mg PO BID #60 tab 12/24/17 [Rx] Ipratropium [place] [Atrovent Hfa] 2 puff INHALATION RT-QID PRN 10/26/18 [History] Follow up Appointment(s)/Referral(s): Luisito Reagan MD [Primary Care Provider] - 11/02/18 2:30 pm Derek Estrada MD [STAFF PHYSICIAN] - 2 Weeks Patient Instructions/Handouts: Chest Pain (ED)
== END 2018-10-27 14:57 | disposition home or self-care (01) ==
LOC: EC 04:31 → 1SOBS 06:17 → 3NMEDONC 16:23
PROVIDERS: ADMIT Hospitalist; ATTEND Hospitalist
DX: R07.89 Other chest pain (principal); J44.9 Chronic obstructive pulmonary disease, unspecified; I25.10 Atherosclerotic heart disease of native coronary artery without angina pectoris; I10 Essential (primary) hypertension; E11.9 Type 2 diabetes mellitus without complications; E78.5 Hyperlipidemia, unspecified; I08.3 Combined rheumatic disorders of mitral, aortic and tricuspid valves; F41.0 Panic disorder [episodic paroxysmal anxiety]; F41.9 Anxiety disorder, unspecified; K21.9 Gastro-esophageal reflux disease without esophagitis; F17.210 Nicotine dependence, cigarettes, uncomplicated; M19.042 Primary osteoarthritis, left hand; M19.041 Primary osteoarthritis, right hand; N39.3 Stress incontinence (female) (male); G89.29 Other chronic pain; M54.5 Low back pain; R00.1 Bradycardia, unspecified; R41.3 Other amnesia; R41.0 Disorientation, unspecified; Z79.84 Long term (current) use of oral hypoglycemic drugs; Z79.82 Long term (current) use of aspirin; Z79.02 Long term (current) use of antithrombotics/antiplatelets; Z79.899 Other long term (current) drug therapy; Z79.52 Long term (current) use of systemic steroids; Z88.1 Allergy status to other antibiotic agents; Z87.01 Personal history of pneumonia (recurrent); Z87.11 Personal history of peptic ulcer disease; Z90.49 Acquired absence of other specified parts of digestive tract; Z95.5 Presence of coronary angioplasty implant and graft; Z90.711 Acquired absence of uterus with remaining cervical stump; Z90.721 Acquired absence of ovaries, unilateral; Z98.42 Cataract extraction status, left eye; Z98.41 Cataract extraction status, right eye; Z96.1 Presence of intraocular lens; Z87.19 Personal history of other diseases of the digestive system; Z82.0 Family history of epilepsy and other diseases of the nervous system
CPT/HCPCS: 99285; 36415; 94640 ×3; 93005 ×2; 85379; 80061; 80053; 84443; 82150; 83690; 83735; 84484; 85025; 85610; 85730; 71046; G0378 ×2; C8929; J7512 ×2; Q9950; 93306

== ENCOUNTER → 2018-12-23 | Outpatient (CLI) | payer MEDICARE ==
--- NOTE | 2018-12-23 14:39 | CT ---
EXAMINATION TYPE: CT abdomen pelvis wo con DATE OF EXAM: 12/23/2018 HISTORY: Per patient known hernia. Patient Scheduled for colonoscopy. Diverticulitis per order. CT DLP: 870.7 mGycm. Automated Exposure Control for Dose Reduction was Utilized. TECHNIQUE: CT scan of the abdomen and pelvis is performed without oral or IV contrast. COMPARISON: CT abdomen and pelvis January 24, 2014 FINDINGS: Within the limitations of a non-contrast study, the following observations are made. There is motion artifact degradation, repeat imaging is performed. LUNG BASES: No significant abnormality is appreciated. LIVER/GB: Cholecystectomy clips are redemonstrated. PANCREAS: No significant abnormality is seen. SPLEEN: No significant abnormality is seen. ADRENALS: Low dense thickening of both adrenal glands favors benign lipid rich hyperplasia. KIDNEYS: No significant abnormality is seen. BOWEL: Debris-filled stomach suggests recent meal ingestion. No suspicious small large bowel dilatati on. Body which while slightly suboptimal secondary to lack of enteric contrast. Few scattered colonic diverticula in the transverse left and sigmoid colon. Sutures are seen in the sigmoid colon with foc al air-fluid level in the pelvis axial image 107 and 109 seconds set of sutures with air fluid level. GENITAL ORGANS: Anteverted uterus. LYMPH NODES: No greater than 1cm abdominal or pelvic lymph nodes are appreciated. OSSEOUS STRUCTURES: Facet arthropathy lower lumbar spine. Multilevel vacuum disc phenomenon and mild disc space narrowing. OTHER: Moderate to advanced atherosclerotic change of aorta with ectasia. No greater than 3 cm aneury smal change.. IMPRESSION: Evidence of prior sigmoid partial colonic resection. Diverticula in the mid to distal col on remain present without acute diverticulitis. Overall no bowel obstruction. No acute findings are e vident.
== END | disposition home or self-care (01) ==
LOC: RADCTMAIN 12:43
PROVIDERS: ATTEND Surgery Plastic and Reconstructive Surgery
DX: K57.30 Diverticulosis of large intestine without perforation or abscess without bleeding (principal); Z88.1 Allergy status to other antibiotic agents
CPT/HCPCS: 74176

== ENCOUNTER → 2019-01-04 | Day surgery (SDC) | payer MEDICARE ==
[2018-12-30 14:55] VITALS: BMI 24.8
[~2019-01-04] MED LIST: LACTATED RINGERS 1,000 ML IV SCH; LIDOCAINE 1% 20 ML VIAL (10MG/ML) FOR IV START INTRADERMA PRN; LIDOCAINE 1% INJ 10MG/ML (20 ML MDV) ONE; PROPOFOL 10 MG/ML 20 ML VIAL IV ONE
[2019-01-04 07:39] VITALS: RESP 17; TEMP 97.9
[2019-01-04 07:56] LABS: Glucose,Whole Blood 110 mg/dL (75-99)
--- NOTE | 2019-01-04 08:05 | P.GSHP ---
History of Present Illness H&P Date: 01/04/19 CHIEF COMPLAINT: GERD and colon screen HISTORY OF PRESENT ILLNESS: The patient is a 83-year-old female who presents with gastroesophageal reflux disease and need for colon screen. Upper and lower endoscopy were offered for further evaluation and management. PAST MEDICAL HISTORY: Please see list. PAST SURGICAL HISTORY: Please see list. MEDICATIONS: Please see list. ALLERGIES: Please see list. SOCIAL HISTORY: No illicit drug use FAMILY HISTORY: No reports of Crohn disease or ulcerative colitis. REVIEW OF ORGAN SYSTEMS: CONSTITUTIONAL: No reports of fevers or chills. GI: Denies any blood in stools or constipation. PHYSICAL EXAM: VITAL SIGNS: Stable GENERAL: Well-developed pleasant in no acute distress. HEENT: No scleral icterus. Extraocular movements grossly intact. Moist buccal mucosa. NECK: Supple without lymphadenopathy. CHEST: Unlabored respirations. Equal bilateral excursions. CARDIOVASCULAR: Regular rate and rhythm. Distal 2+ pulses. ABDOMEN: Soft, nondistended. MUSCULOSKELETAL: No clubbing, cyanosis, or edema. ASSESSMENT: 1. Gastroesophageal reflux disease 2. Colon screen. PLAN: 1. Recommend proceeding with an upper and lower endoscopy Past Medical History Past Medical History: Coronary Artery Disease (CAD), COPD, Diabetes Mellitus, Eye Disorder, Hypertension, Osteoarthritis (OA) Additional Past Medical History / Comment(s): Positive Cologaurd, macular degeneration, chronic low back pain, PUD, diverticulitis, bronchitis, urinary stress incontinence, History of Any Multi-Drug Resistant Organisms: None Reported Past Surgical History: Bowel Resection, Cholecystectomy, Heart Catheterization With Stent, Hysterectomy, Tonsillectomy Additional Past Surgical History / Comment(s): Partial hysterectomy, one ovary removed d/t cyst-, bowel resection d/t diverticulitis, bilateral cataract removals/lens implants. Past Anesthesia/Blood Transfusion Reactions: No Reported Reaction Date of Last Stent Placement:: 12/2017 Smoking Status: Current every day smoker - Past Family History Mother History Unknown: Yes Additional Family Medical History / Comment(s): Mother had migraines. Father Family Medical History: No Reported History Additional Family Medical History / Comment(s): Father was healthy. Medications and Allergies Home Medications Medication Instructions Recorded Confirmed Type Albuterol Inhaler [Ventolin Hfa 2 puff INHALATION RT-QID PRN 12/22/17 01/04/19 History Inhaler] Ferrous Sulfate [Iron (65 MG 325 mg PO DAILY 12/22/17 01/04/19 History Elemental)] Furosemide [Lasix] 20 mg PO DAILY 12/22/17 01/04/19 History metFORMIN HCL 1,000 mg PO BID 12/22/17 01/04/19 History Aspirin 81 mg PO DAILY #30 chew 12/24/17 12/30/18 Rx Atorvastatin [Lipitor] 80 mg PO DAILY #30 tab 12/24/17 01/04/19 Rx Clopidogrel [Plavix] 75 mg PO DAILY #303 tab 12/24/17 12/30/18 Rx Lisinopril [Zestril] 5 mg PO DAILY #30 tab 12/24/17 01/04/19 Rx Metoprolol Tartrate [Lopressor] 25 mg PO BID #60 tab 12/24/17 01/04/19 Rx Ipratropium [place] [Atrovent Hfa] 2 puff INHALATION RT-QID PRN 10/26/18 01/04/19 History Nitroglycerin Sl Tabs [Nitrostat] 0.4 mg SUBLINGUAL Q5M PRN #25 tab 10/27/18 12/30/18 Rx Donepezil HCl [Aricept] 5 mg PO DAILY 12/30/18 01/04/19 History Allergies Allergy/AdvReac Type Severity Reaction Status Date / Time levofloxacin Allergy Anaphylaxis Verified 12/30/18 14:48 Surgical - Exam Vital Signs Temp Pulse Resp BP Pulse Ox 97.9 F 68 17 109/51 95 01/04/19 07:38 01/04/19 07:38 01/04/19 07:38 01/04/19 07:38 01/04/19 07:38 Results - Labs Abnormal Lab Results - Last 24 Hours (Table) 01/04/19 Range/Units 07:45 POC Glucose (mg/dL) 110 H (75-99) mg/dL
--- NOTE | 2019-01-04 08:39 | P.PCN ---
Date of Procedure: 01/04/19 Description of Procedure: PREOPERATIVE DIAGNOSIS: Gastroesophageal reflux disease Chronic obstructive pulmonary disease Chronic tobacco abuse POSTOPERATIVE DIAGNOSIS: Gastroesophageal reflux disease Chronic obstructive pulmonary disease Chronic tobacco abuse Diaphragmatic hiatal hernia Chronic gastritis Esophagitis OPERATION: Esophagogastroduodenoscopy with biopsies along antrum and esophagus SURGEON: Bridget Ramírez MD ANESTHESIA: MAC. INDICATIONS: The patient is a 83-year-old female who presents with a history of reflux disease. Benefits and risks of the procedure were described. Informed consent was obtained. DESCRIPTION: The patient was brought into the endoscopy suite and laid in the left lateral decubitus position. An Olympus gastroscope was passed along the posterior oropharynx down to the distal esophagus where the squamocolumnar junction was encountered at 38 cm from the incisors. The stomach was entered and no bile reflux was found. Additional findings are listed below. Biopsies with cold forceps were obtained of the antrum. The first through third portion of the duodenum was examined and unremarkable. Retroflexion of the scope confirmed Hill grade 3 lower esophageal valve. The squamocolumnar junction demonstrated LA grade B erosive esophagitis. The stomach was desufflated. The patient tolerated the procedure well. FINDINGS: Squamocolumnar junction 38 cm from the incisors. Diaphragmatic hiatus at 40 cm. Hiatal hernia, 2 cm Hill grade 3 lower esophageal valve. LA grade B erosive esophagitis. No active duodenitis. Chronic gastritis with recent bleed Erosive esophagitis distal esophagus with biopsies obtained RECOMMENDATIONS: Upper endoscopy as needed.
--- NOTE | 2019-01-04 08:44 | P.PCN ---
Date of Procedure: 01/04/19 Description of Procedure: PREOPERATIVE DIAGNOSIS: Positive Cologaurd Diverticulosis Personal history of colon polyps History of colon resection, sigmoid colon POSTOPERATIVE DIAGNOSIS: Positive Cologaurd Diverticulosis Personal history of colon polyps History of colon resection, sigmoid colon Ileocecal valve adenoma Descending colon polyp External hemorrhoids, grade 3. OPERATION: Colonoscopy to the ileocecal valve and appendiceal orifice. Colonoscopy with hot snare polypectomy Colonoscopy with multiple cold forceps biopsies. SURGEON: Bridget Ramírez MD. ANESTHESIA: MAC. INDICATIONS: The patient is a 83-year-old female who presents for with positive history of abnormal fecal tests. Diagnostic colonoscopy was advised. Benefits and risks were described and informed consent was obtained. DESCRIPTION OF PROCEDURE: The patient had Suprep. She had been brought into the operating room and laid in the left lateral decubitus position. After adequate intravenous sedation, the rectum was examined with 2% lidocaine jelly. External hemorrhoids were encountered. The rectal tone was within normal limits. No lesions were palpated in the rectal vault. Evidence of sigmoid colon resection was confirmed. An Olympus colonoscope was advanced until the ileocecal valve and appendiceal orifice were clearly viewed. The prep was fair. A few diverticulosis was found along the remnant descending colon. Multiple colonic polyps were found and cold forcep biopsy or snare polypectomy. No evidence of focal colitis was found. Retroflexion of the scope demonstrated grade 2 internal hemorrhoids without active bleeding or inflammation. The colon was desufflated. The patient had tolerated the procedure well. Withdrawal time was over 6 minutes. FINDINGS: Aronchick preparation quality scale 3 (1-5) Internal hemorrhoids, grade 2 External hemorrhoids, grade 3 No arteriovenous malformations A few sigmoid diverticulosis Evidence of sigmoid resection Removal of 2 polyps: - Snare polypectomy distal to ileocecal valve, 8 mm flat villous adenoma polyp, partial resection - Cold forceps biopsy at 50 cm from the anal verge, 4 mm polyp, descending colon polyp No focal colitis. RECOMMENDATIONS: With presence of persistent adenoma, will be repeat colonoscopy in one year, 2019 Plan - Discharge Summary Discharge Rx Participant: No New Discharge Prescriptions: No Action metFORMIN HCL 1,000 mg PO BID Furosemide [Lasix] 20 mg PO DAILY Ferrous Sulfate [Iron (65 MG Elemental)] 325 mg PO DAILY Albuterol Inhaler [Ventolin Hfa Inhaler] 2 puff INHALATION RT-QID PRN PRN Reason: Shortness Of Breath Aspirin 81 mg PO DAILY #30 chew Clopidogrel [Plavix] 75 mg PO DAILY #303 tab Lisinopril [Zestril] 5 mg PO DAILY #30 tab Metoprolol Tartrate [Lopressor] 25 mg PO BID #60 tab Atorvastatin [Lipitor] 80 mg PO DAILY #30 tab Ipratropium [place] [Atrovent Hfa] 2 puff INHALATION RT-QID PRN PRN Reason: Shortness Of Breath Nitroglycerin Sl Tabs [Nitrostat] 0.4 mg SUBLINGUAL Q5M PRN #25 tab PRN Reason: Chest Pain Donepezil HCl [Aricept] 5 mg PO DAILY Discharge Medication List Albuterol Inhaler [Ventolin Hfa Inhaler] 2 puff INHALATION RT-QID PRN 12/22/17 [History] Ferrous Sulfate [Iron (65 MG Elemental)] 325 mg PO DAILY 12/22/17 [History] Furosemide [Lasix] 20 mg PO DAILY 12/22/17 [History] metFORMIN HCL 1,000 mg PO BID 12/22/17 [History] Aspirin 81 mg PO DAILY #30 chew 12/24/17 [Rx] Atorvastatin [Lipitor] 80 mg PO DAILY #30 tab 12/24/17 [Rx] Clopidogrel [Plavix] 75 mg PO DAILY #303 tab 12/24/17 [Rx] Lisinopril [Zestril] 5 mg PO DAILY #30 tab 12/24/17 [Rx] Metoprolol Tartrate [Lopressor] 25 mg PO BID #60 tab 12/24/17 [Rx] Ipratropium [place] [Atrovent Hfa] 2 puff INHALATION RT-QID PRN 10/26/18 [History] Nitroglycerin Sl Tabs [Nitrostat] 0.4 mg SUBLINGUAL Q5M PRN #25 tab 10/27/18 [Rx] Donepezil HCl [Aricept] 5 mg PO DAILY 12/30/18 [History] Follow up Appointment(s)/Referral(s): Bridget Ramírez MD [STAFF PHYSICIAN] - As Needed Patient Instructions/Handouts: *Surgery [facility] - (Anesthesia) Endoscopy Discharge Instructions, Colonoscopy (DC), Upper Endoscopy (DC) Activity/Diet/Wound Care/Special Instructions: REST TODAY, ENCOURAGE FLUIDS AT HOME
[2019-01-04 08:51] VITALS: BP 129/72; PULSE 75
== END | disposition home or self-care (01) ==
LOC: ORWHC2ENDO 07:23
PROVIDERS: ATTEND Surgery Plastic and Reconstructive Surgery
DX: Z12.11 Encounter for screening for malignant neoplasm of colon (principal); K21.0 Gastro-esophageal reflux disease with esophagitis; K29.50 Unspecified chronic gastritis without bleeding; D12.0 Benign neoplasm of cecum; K63.5 Polyp of colon; K64.2 Third degree hemorrhoids; K64.1 Second degree hemorrhoids; F41.9 Anxiety disorder, unspecified; K44.9 Diaphragmatic hernia without obstruction or gangrene; I25.10 Atherosclerotic heart disease of native coronary artery without angina pectoris; J44.9 Chronic obstructive pulmonary disease, unspecified; E11.9 Type 2 diabetes mellitus without complications; F17.200 Nicotine dependence, unspecified, uncomplicated; I10 Essential (primary) hypertension; M19.90 Unspecified osteoarthritis, unspecified site; H35.30 Unspecified macular degeneration; Z87.11 Personal history of peptic ulcer disease; Z95.5 Presence of coronary angioplasty implant and graft; Z90.49 Acquired absence of other specified parts of digestive tract; Z90.711 Acquired absence of uterus with remaining cervical stump; Z98.42 Cataract extraction status, left eye; Z98.41 Cataract extraction status, right eye; Z96.1 Presence of intraocular lens; Z79.84 Long term (current) use of oral hypoglycemic drugs; Z79.02 Long term (current) use of antithrombotics/antiplatelets; Z79.82 Long term (current) use of aspirin; Z79.899 Other long term (current) drug therapy; Z88.1 Allergy status to other antibiotic agents
CPT/HCPCS: 45380; 45385; 43239; 88305; J2001; J2704

== ENCOUNTER 2020-12-12 05:38 | Observation (INO) | payer MEDICARE ==
[2020-12-12] MEDS ORDERED: MORPHINE SULFATE 4 MG/ML SYRINGE IV STA (05:43)
[2020-12-12] MEDS ORDERED: methylPREDNISolone SOD SUCCI 125 MG/2 ML VIAL IV STA (05:43)
[2020-12-12] MEDS ORDERED: KETOROLAC 15 MG/ML 1 ML VIAL IVP STA (05:43)
[2020-12-12] MEDS ORDERED: IPRATROPIUM-ALBUTEROL 3 ML NEB INHALATION STA (05:43)
[2020-12-12] MEDS ORDERED: SODIUM CHLORIDE 0.9% 1,000 ML IV STA (05:43)
--- NOTE | 2020-12-12 05:44 | ED ---
Chest Pain HPI - General Stated Complaint: Chest Pain Time Seen by Provider: 12/12/20 05:43 Source: RN notes reviewed, old records reviewed Mode of arrival: EMS Limitations: no limitations - History of Present Illness Initial Comments: This is an 82-year-old female to the ER for evaluation with history of prior [facility]. Patient is coming in for chest pain today she also is complaining of shortness of breath with cough. Cough on arrival to ER today. No fevers. No travel history no sick contacts. Patient again has persistent chest pain he is concern for heart. MD Complaint: chest pain, other (Chest pain shortness of breath) -: hour(s) Onset: during rest Pain Location: substernal Pain Radiation: none Severity: moderate Severity scale (1-10): 5 Quality: tightness, heaviness Consistency: intermittent, now resolved Improves With: nothing Worsens With: nothing Context: other (none) Anginal Symptoms: nausea Other Symptoms: cough Treatments Prior to Arrival: none - Related Data Home Medications Medication Instructions Recorded Confirmed Albuterol Inhaler (Mhu) [Ventolin 2 puff INHALATION RT-QID PRN 12/22/17 01/04/19 Hfa Inhaler (Mhu)] Ferrous Sulfate [Iron (65 MG 325 mg PO DAILY 12/22/17 01/04/19 Elemental)] Furosemide [Lasix] 20 mg PO DAILY 12/22/17 01/04/19 metFORMIN HCL [Glucophage] 1,000 mg PO BID 12/22/17 01/04/19 Ipratropium [place] [Atrovent Hfa] 2 puff INHALATION RT-QID PRN 10/26/18 01/04/19 Donepezil HCl [Aricept] 5 mg PO DAILY 12/30/18 01/04/19 Previous Rx's Medication Instructions Recorded Aspirin 81 mg PO DAILY #30 chew 12/24/17 Atorvastatin [Lipitor] 80 mg PO DAILY #30 tab 12/24/17 Clopidogrel [Plavix] 75 mg PO DAILY #303 tab 12/24/17 Metoprolol Tartrate [Lopressor] 25 mg PO BID #60 tab 12/24/17 lisinopriL [Zestril] 5 mg PO DAILY #30 tab 12/24/17 Nitroglycerin Sl Tabs [Nitrostat] 0.4 mg SUBLINGUAL Q5M PRN #25 tab 10/27/18 Allergies Allergy/AdvReac Type Severity Reaction Status Date / Time levofloxacin Allergy Anaphylaxis Verified 12/30/18 14:48 Review of Systems ROS Statement: Those systems with pertinent positive or pertinent negative responses have been documented in the HPI. ROS Other: All systems not noted in ROS Statement are negative. Past Medical History Past Medical History: Coronary Artery Disease (CAD), Chest Pain / Angina, COPD, Diabetes Mellitus, GERD/Reflux, Hypertension, Osteoarthritis (OA), Pneumonia Additional Past Medical History / Comment(s): NIDDM type II, chronic low back pain, R carpal tunnel syndrome, PUD, diverticulitis, bronchitis, urinary stress incontinence, pt is on lasix but does not recall reason. History of Any Multi-Drug Resistant Organisms: None Reported Past Surgical History: Bowel Resection, Cholecystectomy, Heart Catheterization With Stent, Hysterectomy, Tonsillectomy Additional Past Surgical History / Comment(s): Partial hysterectomy, one ovary removed d/t cyst-pt cannot recall laterallity, bowel resection d/t diverticulitis, bilateral cataract removals/lens implants. Past Anesthesia/Blood Transfusion Reactions: No Reported Reaction Date of Last Stent Placement:: 12/2017 Additional Past Alcohol Use History / Comment(s): Pt started smoking in 1954 and is a 2 ppd smoker. - Past Family History Mother History Unknown: Yes Additional Family Medical History / Comment(s): Mother had migraines. Father Family Medical History: No Reported History Additional Family Medical History / Comment(s): Father was healthy. General Exam General appearance: alert, in no apparent distress Head exam: Present: atraumatic, normocephalic, normal inspection Eye exam: Present: normal appearance, PERRL, EOMI. Absent: scleral icterus, conjunctival injection, periorbital swelling ENT exam: Present: normal exam, mucous membranes moist Neck exam: Present: normal inspection. Absent: tenderness, meningismus, lymphadenopathy Respiratory exam: Present: respiratory distress, decreased breath sounds, prolonged expiratory. Absent: wheezes, rales, rhonchi, stridor Cardiovascular Exam: Present: regular rate, normal rhythm, normal heart sounds. Absent: systolic murmur, diastolic murmur, rubs, gallop, clicks GI/Abdominal exam: Present: soft, normal bowel sounds. Absent: distended, tenderness, guarding, rebound, rigid Extremities exam: Present: normal inspection, full ROM, normal capillary refill. Absent: tenderness, pedal edema, joint swelling, calf tenderness Back exam: Present: normal inspection Neurological exam: Present: alert, oriented X3, CN II-XII intact Psychiatric exam: Present: normal affect, normal mood Skin exam: Present: warm, dry, intact, normal color. Absent: rash Course Vital Signs 12/12/20 05:47 Temperature 97.7 F Pulse Rate 68 Respiratory 16 Rate Blood Pressure 112/50 O2 Sat by Pulse 94 L Oximetry - Reevaluation(s) Reevaluation #1: 12/12/20 06:51 Medical record is reviewed Reevaluation #2: 12/12/20 06:51 A patient has persistent chest pain shortness of breath here in the ER Reevaluation #3: 12/12/20 06:51 Patient informed results and questions answered - Consultations Consultation #1: spoke w Dr Pierson who agrees to admit this patient Chest Pain MDM - MDM 85 female DF for chest pain chest pain Here with COPD exacerbation cough and shortness of breath. Patient be admitted for observation, troponin trending and treatment of COPD Disposition Clinical Impression: Chest pain, Acute exacerbation of chronic obstructive airways disease Disposition: ADMITTED IP TO THIS HOSP Condition: Fair Is patient prescribed a controlled substance at d/c from ED?: No Referrals: Cullen Jones MD [Primary Care Provider] - 1-2 days
--- NOTE | 2020-12-12 06:06 | XR ---
EXAMINATION TYPE: XR chest 2V DATE OF EXAM: 12/12/2020 COMPARISON: 10/26/2018 HISTORY: Chest TECHNIQUE: 2 views FINDINGS: There is no heart failure nor confluent pneumonic infiltrate. Costophrenic angles are clear . There are chest leads. Bony thorax is intact thoracic aorta is atheromatous. IMPRESSION: No active cardiopulmonary disease. Normal heart. No change compared to old exam.
[2020-12-12 06:33] LABS: Anisocytosis Slight; Basophils % (A) 0 %; Eosinophils # (A) 0.2 k/uL (0-0.7); Eosinophils % (A) 2 %; HGB 9.9 gm/dL (11.4-16.0); Hypochromasia Slight; Lymphocytes # (A) 1.7 k/uL (1.0-4.8); Lymphocytes % (A) 18 %; MCH 34.9 pg (25.0-35.0); MCHC 32.8 g/dL (31.0-37.0); MCV 106.2 fL (80.0-100.0); Macrocytosis Moderate; Mean Platelet Volume 8.8; Monocytes # (A) 0.3 k/uL (0-1.0); Monocytes % (A) 4 %; Neutrophils # (A) 6.8 k/uL (1.3-7.7); Neutrophils % (A) 75 %; Platelet Count 272 k/uL (150-450); RBC 2.83 m/uL (3.80-5.40); RDW 16.5 % (11.5-15.5); WBC 9.1 k/uL (3.8-10.6)
[2020-12-12 06:47] LABS: Albumin 3.4 g/dL (3.5-5.0); Calcium 8.4 mg/dL (8.4-10.2); Magnesium 2.1 mg/dL (1.6-2.3); Potassium 3.8 mmol/L (3.5-5.1); Total Bilirubin 0.3 mg/dL (0.2-1.3); Total Protein 5.4 g/dL (6.3-8.2)
[2020-12-12] MEDS ORDERED: IPRATROPIUM-ALBUTEROL 3 ML NEB INHALATION PRN (06:48)
[2020-12-12] MEDS ORDERED: MORPHINE SULFATE 4 MG/ML SYRINGE IV PRN (06:48)
[2020-12-12] MEDS ORDERED: ONDANSETRON 4 MG/2 ML VIAL IVP PRN (06:48)
[2020-12-12] MEDS ORDERED: NALOXONE 0.4 MG/ML 1 ML VIAL IV PRN (06:48)
[2020-12-12 06:50] LABS: INR 0.9 (<1.2); Partial Thromboplastin Time 22.2 sec (22.0-30.0); Prothrombin Time 9.8 sec (9.0-12.0)
[2020-12-12] MEDS: ALBUTEROL NEBULIZED 2.5 MG/3 ML INHALATION SCH ×4 (07:54→20:46)
--- NOTE | 2020-12-12 11:09 | P.CRDCN ---
History of Present Illness Consult date: 12/12/20 Chief complaint: Chest pain History of present illness: This is an 85-year-old female patient who sees Dr. Michaels in the office regularly with a past medical history significant for coronary artery disease and prior stenting of the left circumflex was performed several years ago as well as hypertension and dyslipidemia continues to smoke 3 packs of cigarettes a day presented to the hospital complaining of chest discomfort. As a matter of fact the patient was brought by her 2 daughters. She was in her usual state until this drill sharpener operator when she woke up from sleep complaining of chest discomfort which he described the discomfort as a squeezing sensation in the middle of the chest as well as on the left side of the chest with some radiation to the back. No radiation to the arms or neck or shoulder. No associated symptoms of sweating or dizziness or lightheadedness or any presyncope or syncope. Currently she is chest pain-free. On examination she does have very significant pansystolic murmur at the right upper sternal border. The EKG showed sinus rhythm with diffuse nonspecific ST and T wave abnormalities with a chest x-ray did not show any acute abnormality the first set of troponin came in to be unremarkable and there is 2 more sets to follow. Past Medical History Past Medical History: Coronary Artery Disease (CAD), Chest Pain / Angina, COPD, Diabetes Mellitus, GERD/Reflux, Hypertension, Osteoarthritis (OA), Pneumonia Additional Past Medical History / Comment(s): NIDDM type II, chronic low back pain, R carpal tunnel syndrome, PUD, diverticulitis, bronchitis, urinary stress incontinence, pt is on lasix but does not recall reason. History of Any Multi-Drug Resistant Organisms: None Reported Past Surgical History: Bowel Resection, Cholecystectomy, Heart Catheterization With Stent, Hysterectomy, Tonsillectomy Additional Past Surgical History / Comment(s): Partial hysterectomy, one ovary removed d/t cyst-pt cannot recall laterallity, bowel resection d/t diverticulitis, bilateral cataract removals/lens implants. Past Anesthesia/Blood Transfusion Reactions: No Reported Reaction Date of Last Stent Placement:: 12/2017 Additional Past Alcohol Use History / Comment(s): Pt started smoking in 1954 and is a 2 ppd smoker. - Past Family History Mother History Unknown: Yes Additional Family Medical History / Comment(s): Mother had migraines. Father Family Medical History: No Reported History Additional Family Medical History / Comment(s): Father was healthy. Medications and Allergies Home Medications Medication Instructions Recorded Confirmed Type Ferrous Sulfate [Iron (65 MG 325 mg PO BID 12/22/17 12/12/20 History Elemental)] Furosemide [Lasix] 20 mg PO DAILY 12/22/17 12/12/20 History Clopidogrel [Plavix] 75 mg PO DAILY #303 tab 12/24/17 12/12/20 Rx lisinopriL [Zestril] 5 mg PO DAILY #30 tab 12/24/17 12/12/20 Rx Ipratropium [place] [Atrovent Hfa] 2 puff INHALATION RT-QID PRN 10/26/18 History Nitroglycerin Sl Tabs [Nitrostat] 0.4 mg SUBLINGUAL Q5M PRN #25 tab 10/27/18 12/12/20 Rx Donepezil HCl [Aricept] 5 mg PO HS 12/30/18 12/12/20 History Albuterol Inhaler [Ventolin Hfa 2 puff INHALATION RT-QID PRN 12/12/20 12/12/20 History Inhaler] Aspirin EC [Ecotrin Low Dose] 81 mg PO DAILY 12/12/20 12/12/20 History Atorvastatin [Lipitor] 80 mg PO HS 12/12/20 12/12/20 History Ibuprofen [Motrin] 800 mg PO BID 12/12/20 12/12/20 History Metoprolol Tartrate [Lopressor] 25 mg PO DAILY 12/12/20 12/12/20 History Allergies Allergy/AdvReac Type Severity Reaction Status Date / Time levofloxacin Allergy Anaphylaxis Verified 12/12/20 07:31 Physical Exam Vitals: Vital Signs Temp Pulse Resp BP Pulse Ox 12/12/20 11:05 92 18 112/46 97 12/12/20 09:00 93 18 106/53 95 12/12/20 08:01 74 12/12/20 07:43 74 12/12/20 05:47 97.7 F 68 16 112/50 94 L Intake and Output 12/11/20 12/12/20 12/12/20 22:59 06:59 14:59 Other: Weight 81.647 kg - Constitutional General appearance: no acute distress - Respiratory Respiratory: bilateral: diminished - Cardiovascular Rhythm: regular Heart sounds: normal: S1, S2 Abnormal Heart Sounds: systolic murmur Results 12/12/20 06:15 12/12/20 06:15 Cardiac Enzymes 12/12/20 12/12/20 12/12/20 Range/Units 06:15 06:15 09:55 AST 23 (14-36) U/L Troponin I <0.012 <0.012 (0.000-0.034) ng/mL Coagulation 12/12/20 Range/Units 06:15 PT 9.8 (9.0-12.0) sec APTT 22.2 (22.0-30.0) sec CBC 12/12/20 Range/Units 06:15 WBC 9.1 (3.8-10.6) k/uL RBC 2.83 L (3.80-5.40) m/uL Hgb 9.9 L (11.4-16.0) gm/dL Hct 30.0 L (34.0-46.0) % Plt Count 272 (150-450) k/uL Comprehensive Metabolic Panel 12/12/20 Range/Units 06:15 Sodium 140 (137-145) mmol/L Potassium 3.8 (3.5-5.1) mmol/L Chloride 110 H (98-107) mmol/L Carbon Dioxide 24 (22-30) mmol/L BUN 19 H (7-17) mg/dL Creatinine 1.09 H (0.52-1.04) mg/dL Glucose 147 H (74-99) mg/dL Calcium 8.4 (8.4-10.2) mg/dL AST 23 (14-36) U/L ALT 18 (4-34) U/L Alkaline Phosphatase 83 (38-126) U/L Total Protein 5.4 L (6.3-8.2) g/dL Albumin 3.4 L (3.5-5.0) g/dL Current Medications Generic Name Dose Route Start Last Admin Trade Name Freq PRN Reason Stop Dose Admin Albuterol Sulfate 5 mg 12/12/20 08:00 12/12/20 07:54 Albuterol Nebulized 2.5 Mg/3 Ml INHALATION Not Given RT-QID GEN Albuterol/Ipratropium 3 ml 12/12/20 06:48 Ipratropium-Albuterol 3 Ml Neb INHALATION RT-Q4H PRN Shortness Of Breath Or Wheezing Sodium Chloride 1,000 mls @ 100 mls/hr 12/12/20 05:43 12/12/20 06:30 Saline 0.9% IV 12/12/20 15:42 100 mls/hr .Q10H STA Administration Sodium Chloride 1,000 mls @ 100 mls/hr 12/12/20 07:00 Saline 0.9% IV .Q10H GEN Methylprednisolone Sodium Succinate 60 mg 12/12/20 12:00 Methylprednisolone Sod Succi 125 Mg/2 Ml Vial IV Q6HR GEN Morphine Sulfate 4 mg 12/12/20 06:48 Morphine Sulfate 4 Mg/Ml Syringe IV Q4HR PRN Severe Pain Naloxone HCl 0.2 mg 12/12/20 06:48 Naloxone 0.4 Mg/Ml 1 Ml Vial IV Q2M PRN Opioid Reversal Ondansetron HCl 4 mg 12/12/20 06:48 Ondansetron 4 Mg/2 Ml Vial IVP Q8HR PRN Nausea And Vomiting Intake and Output 12/11/20 12/12/20 12/12/20 22:59 06:59 14:59 Other: Weight 81.647 kg 12/12/20 06:15 12/12/20 06:15 Assessment and Plan Assessment: Assessment #1 chest discomfort. Currently the patient is chest pain-free #2 coronary artery disease and prior stenting of the LCx #3 significant history of smoking #4 multiple comorbid conditions Plan #1 rule out acute coronary event #2 obtain an echocardiogram was Doppler to evaluate the etiology behind her murmur #3 follow-up with the patient
[2020-12-12] MEDS ORDERED: methylPREDNISolone SOD SUCCI 125 MG/2 ML VIAL IV SCH (12:00)
[2020-12-12] MEDS: SODIUM CHLORIDE 0.9% 1,000 ML IV SCH ×2 (12:35→18:31)
[2020-12-12] MEDS ORDERED: METOPROLOL TARTRATE 25 MG TAB PO SCH (15:14)
[2020-12-12] MEDS: HEPARIN SODIUM,PORCINE/PF 5,000 UNIT/0.5 ML SYRINGE SQ SCH ×2 (16:36→23:25)
[2020-12-12] MEDS: NICOTINE 21MG/24HR PATCH TRANSDERM SCH (16:36)
[2020-12-12] MEDS: methylPREDNISolone SOD SUCCI 40 MG/ML 1 ML VIAL IV SCH ×2 (16:36→23:25)
[2020-12-12] MEDS: PANTOPRAZOLE 40 MG TABLET PO SCH (16:43)
[2020-12-12] MEDS ORDERED: guaiFENesin-DM 100-10MG/5ML 10 ML CUP PO PRN (17:02)
[2020-12-12] MEDS ORDERED: SODIUM CHLORIDE 0.9% 1,000 ML IV SCH (17:15)
[2020-12-12] MEDS ORDERED: ATORVASTATIN 80 MG TAB PO SCH (21:00)
[2020-12-12] MEDS ORDERED: DONEPEZIL 5 MG TAB PO SCH (21:00)
--- NOTE | 2020-12-12 22:40 | P.HPIM ---
History of Present Illness H&P Date: 12/12/20 Chief Complaint: Chest Pain Patient is a 85-year-old female with a known history of COPD, coronary artery disease with history of stent placement, diabetes type 2, hypertension, osteoarthritis, chronic low back pain, peptic ulcer disease and ongoing nicotine addiction 2 packs of cigarettes per day presents to ER with the complaints of chest discomfort. Patient states that she developed chest pain yesterday 2 hours after eating chicken soup. Chest pain is mainly left side of the chest and lower rib cage associated with shortness of breath and a squeezing-like sensation and sometimes radiating to the back. Patient has been having chronic cough due to history of smoking. Does have nausea. No associated vomiting. No headache or dizziness or lightheadedness. No diaphoresis. Patient woke up this morning and she still having chest discomfort which made her to come to ER. EKG showed sinus rhythm with nonspecific ST-T wave changes Chest x-ray showed no acute abnormality. Laboratory data showed WBC 9.1 hemoglobin 9.9 and platelets 272 MCV 106.2 Sodium 140 potassium 3.8 chloride 110 BUN 19 and creatinine 1.09 Troponin x3 - proBNP 79 Lipase 298 Review of Systems Constitutional: Patient denies any fever or chills . No generalized weakness or weight loss. Abdomen: Patient denied nausea vomiting and diarrhea and abdominal pain. Cardiovascular: Patient denies any chest pain or short of breath no palpitations. Respiratory: patient denied any cough or sputum production. No shortness of breath Neurologic: Patient denied any numbness or tingling headache. Musculoskeletal: Patient denies any complaints of joint swelling or deformity. Skin: Negative Psychiatric: Negative Endocrine: No heat or cold intolerance. No recent weight gain. Genitourinary: No dysuria or hematuria. All other 14 point ROS negative except the above Past Medical History Past Medical History: Coronary Artery Disease (CAD), Chest Pain / Angina, COPD, Diabetes Mellitus, GERD/Reflux, Hypertension, Osteoarthritis (OA), Pneumonia Additional Past Medical History / Comment(s): NIDDM type II, chronic low back pain, R carpal tunnel syndrome, PUD, diverticulitis, bronchitis, urinary stress incontinence, pt is on lasix but does not recall reason. History of Any Multi-Drug Resistant Organisms: None Reported Past Surgical History: Bowel Resection, Cholecystectomy, Heart Catheterization With Stent, Hysterectomy, Tonsillectomy Additional Past Surgical History / Comment(s): Partial hysterectomy, one ovary removed d/t cyst-pt cannot recall laterallity, bowel resection d/t diverticulitis, bilateral cataract removals/lens implants. Past Anesthesia/Blood Transfusion Reactions: No Reported Reaction Date of Last Stent Placement:: 12/2017 Past Psychological History: Anxiety, Panic Disorder Additional Psychological History / Comment(s): Pt resides alone. She uses a cane/walker. She no longer drives, she has a friend take her to [facility]. Smoking Status: Current every day smoker Past Alcohol Use History: None Reported Additional Past Alcohol Use History / Comment(s): Pt started smoking in 1954 and is a 2 ppd smoker. Past Drug Use History: None Reported - Past Family History Mother History Unknown: Yes Additional Family Medical History / Comment(s): Mother had migraines. Father Family Medical History: No Reported History Additional Family Medical History / Comment(s): Father was healthy. Medications and Allergies Home Medications Medication Instructions Recorded Confirmed Type Ferrous Sulfate [Iron (65 MG 325 mg PO BID 12/22/17 12/12/20 History Elemental)] Furosemide [Lasix] 20 mg PO DAILY 12/22/17 12/12/20 History Clopidogrel [Plavix] 75 mg PO DAILY #303 tab 12/24/17 12/12/20 Rx lisinopriL [Zestril] 5 mg PO DAILY #30 tab 12/24/17 12/12/20 Rx Ipratropium [place] [Atrovent Hfa] 2 puff INHALATION RT-QID PRN 10/26/18 12/12/20 History Nitroglycerin Sl Tabs [Nitrostat] 0.4 mg SUBLINGUAL Q5M PRN #25 tab 10/27/18 12/12/20 Rx Donepezil HCl [Aricept] 5 mg PO HS 12/30/18 12/12/20 History Albuterol Inhaler [Ventolin Hfa 2 puff INHALATION RT-QID PRN 12/12/20 12/12/20 History Inhaler] Aspirin EC [Ecotrin Low Dose] 81 mg PO DAILY 12/12/20 12/12/20 History Atorvastatin [Lipitor] 80 mg PO HS 12/12/20 12/12/20 History Ibuprofen [Motrin] 800 mg PO BID 12/12/20 12/12/20 History Metoprolol Tartrate [Lopressor] 25 mg PO DAILY 12/12/20 12/12/20 History Allergies Allergy/AdvReac Type Severity Reaction Status Date / Time levofloxacin Allergy Anaphylaxis Verified 12/12/20 07:31 Physical Exam Vitals: Vital Signs Temp Pulse Pulse Resp BP BP Pulse Ox 12/12/20 14:48 98.3 F 109 H 16 114/72 96 12/12/20 13:27 98.5 F 107 H 26 H 139/65 94 L 12/12/20 12:24 98.2 F 102 H 24 124/54 96 12/12/20 12:19 96 12/12/20 12:05 101 H 12/12/20 11:05 92 24 112/46 97 12/12/20 09:00 93 18 106/53 95 12/12/20 08:01 74 12/12/20 07:43 74 12/12/20 05:47 97.7 F 68 16 112/50 94 L Intake and Output 12/12/20 12/12/20 12/12/20 06:59 14:59 22:59 Other: # Voids 1 Weight 81.647 kg 81.647 kg PHYSICAL EXAMINATION: Patient is lying in the bed comfortably, no acute distress, awake alert and oriented.. HEENT: Normocephalic. Neck is supple. Pupils reactive. Nostrils clear. Oral cavity is moist. Neck reveals no JVD, carotid bruits, or thyromegaly. CHEST EXAMINATION: Trachea is central. Symmetrical expansion. scattered Rhonchi, mild wheezing. CARDIAC: Normal S1, S2 with no gallops. systolic murmur ABDOMEN: Soft. Bowel sounds normal. No organomegaly. No abdominal bruits. Extremities: trace edema. No clubbing or cyanosis Neurologically awake, alert, oriented x3 with well-coordinated movements. No focal deficits noted Skin: No rash or skin lesions. Psychiatric: Coperative. Nonsuicidal Musculoskeletal: No joint swelling or deformity. Normal range of motion. Results CBC & Chem 7: 12/12/20 06:15 12/12/20 06:15 Labs: Abnormal Lab Results - Last 24 Hours (Table) 12/12/20 12/12/20 Range/Units 06:15 06:15 RBC 2.83 L (3.80-5.40) m/uL Hgb 9.9 L (11.4-16.0) gm/dL Hct 30.0 L (34.0-46.0) % MCV 106.2 H (80.0-100.0) fL RDW 16.5 H (11.5-15.5) % Chloride 110 H (98-107) mmol/L BUN 19 H (7-17) mg/dL Creatinine 1.09 H (0.52-1.04) mg/dL Glucose 147 H (74-99) mg/dL Total Protein 5.4 L (6.3-8.2) g/dL Albumin 3.4 L (3.5-5.0) g/dL Thrombosis Risk Factor Assmnt - DVT/VTE Prophylaxis DVT/VTE Prophylaxis: Pharmacologic Prophylaxis ordered Assessment and Plan Assessment: Atypical chest pain. Ruled out ACS. Possible undelying peptic ulcer disease. Coronary artery disease history of stent placement COPD with mild exacerbation Ongoing nicotine addiction. 2 packs/day. Diabetes type 2 [id number] Chronic low back pain Osteoarthritis Macrocytic anemia. Hemoglobin 9.9 DVT prophylaxis Heparin subcu Plan: Patient be continued on telemetry monitoring. Serial EKG and troponin x3 -. 2D echocardiogram was ordered and cardiology is on board. Continue with IV Solu-Medrol 40 mg IV every 8 and duo nebs. Continue with home medications including aspirin statins and Plavix, metoprolol. Continue to follow closely. Time with Patient: Greater than 30
[2020-12-13 01:56] VITALS: RESP 18
[2020-12-13] MEDS: ALBUTEROL NEBULIZED 2.5 MG/3 ML INHALATION SCH ×2 (07:47→11:02)
[2020-12-13 07:54] VITALS: BP 109/60; TEMP 97.7
[2020-12-13] MEDS: NICOTINE 21MG/24HR PATCH TRANSDERM SCH (08:00)
[2020-12-13] MEDS: methylPREDNISolone SOD SUCCI 40 MG/ML 1 ML VIAL IV SCH (08:00)
[2020-12-13] MEDS: HEPARIN SODIUM,PORCINE/PF 5,000 UNIT/0.5 ML SYRINGE SQ SCH (08:00)
[2020-12-13 08:01] VITALS: PULSE 86
[2020-12-13] MEDS: PANTOPRAZOLE 40 MG TABLET PO SCH (08:01)
[2020-12-13] MEDS ORDERED: FUROSEMIDE 20 MG TAB PO SCH (09:00)
[2020-12-13] MEDS ORDERED: ASPIRIN 81 MG PO SCH (09:00)
[2020-12-13] MEDS ORDERED: lisinopriL 5 MG TAB PO SCH (09:00)
[2020-12-13] MEDS ORDERED: CLOPIDOGREL 75 MG TAB PO SCH (09:00)
--- NOTE | 2020-12-13 09:41 | P.PN ---
Subjective Progress Note Date: 12/13/20 HISTORY OF PRESENT ILLNESS: This is an 85-year-old female patient who sees Dr. Michaels in the office regularly with a past medical history significant for coronary artery disease and prior stenting of the left circumflex was performed several years ago as well as hypertension and dyslipidemia continues to smoke 3 packs of cigarettes a day presented to the hospital complaining of chest discomfort. As a matter of fact the patient was brought by her 2 daughters. She was in her usual state until this ambulance driver paramedic when she woke up from sleep complaining of chest discomfort which he described the discomfort as a squeezing sensation in the middle of the chest as well as on the left side of the chest with some radiation to the back. No radiation to the arms or neck or shoulder. No associated symptoms of sweating or dizziness or lightheadedness or any presyncope or syncope. Currently she is chest pain-free. On examination she does have very significant pansystolic murmur at the right upper sternal border. The EKG showed sinus rhythm with diffuse nonspecific ST and T wave abnormalities with a chest x-ray did not show any acute abnormality the first set of troponin came in to be unremarkable and there is 2 more sets to follow. 12/13/2020 Patient examined this morning at bedside. Patient denies any chest pain or pressure. She states her shortness of breath has improved. Troponins are negative 3. Vital signs stable. PHYSICAL EXAM: VITAL SIGNS: Reviewed. GENERAL: Well-developed in no acute distress. NECK: Supple. No JVD or thyromegaly LUNGS: Respirations even and unlabored. Lungs diminished bilaterally. HEART: Regular rate and rhythm. S1 and S2 heard. Systolic murmur noted. EXTREMITIES: Normal range of motion. No clubbing or cyanosis. Peripheral pulses intact. No lower extremity edema ASSESSMENT: Chest pain, troponin negative x 3 Acute exacerbation of COPD Coronary artery disease with previous PCI to circumflex Chronic nicotine dependence, patient smokes 2 packs per day Hypertension Hyperlipidemia Diabetes Systolic murmur PLAN: Continue current cardiac medications 2-D echo ordered. Await results Further recommendations pending patient's course Nurse practitioner note has been reviewed by physician. Signing provider agrees with the documented findings, assessment, and plan of care. Objective - Vital Signs Vital signs: Vital Signs Temp 97.7 F 12/13/20 07:00 Pulse 86 12/13/20 08:00 Resp 18 07/30/21 07:00 BP 109/60 12/13/20 07:00 Pulse Ox 96 12/13/20 07:00 Intake & Output 12/12/20 12/13/20 12/13/20 18:59 06:59 18:59 Weight 81.647 kg Other: Voiding Method Toilet # Voids 1 3 - Labs CBC & Chem 7: 12/12/20 06:15 12/12/20 06:15
--- NOTE | 2020-12-13 10:55 | ECHOF ---
Referral Reason:LV function, chest pain MEASUREMENTS -------- HEIGHT: 170.2 cm WEIGHT: 81.6 kg BP: 106/53 RVIDd: 3.0 cm (< 3.3) IVSd: 1.6 cm (0.6 - 1.1) LVIDd: 4.1 cm (3.9 - 5.3) LVPWd: 1.3 cm (0.6 - 1.1) IVSs: 1.9 cm LVIDs: 1.6 cm LVPWs: 1.5 cm LAESV Index (A-L): 28.16 ml/m Ao Diam: 2.6 cm (2.0 - 3.7) AV Cusp: 1.1 cm (1.5 - 2.6) LA Diam: 3.9 cm (2.7 - 3.8) MV E Gil: 1.12 m/s MV DecT: 330 ms MV A Gil: 1.66 m/s MV E/A Ratio: 0.68 AV maxP.78 mmHg AV meanP.21 mmHg RAP: 5.00 mmHg RVSP: 27.93 mmHg FINDINGS -------- Sinus rhythm. This was a technically difficult study with suboptimal views. The left ventricular size is normal. There is moderate concentric left ventricular hypertrophy. O verall left ventricular systolic function is normal with, an EF between 55 - 60 %. Lvot Obstruction . The LVOT peak gradient is about 60 mmHG The right ventricle is normal in size. Normal LA size by volume 22+/-6 ml/m2. The right atrium was not well visualized. 5.0mg of Lumason was utilized for enhancement of images Interatrial and interventricular septum intact. The aortic valve was not well visualized. There is no evidence of aortic regurgitation. Mild mitral regurgitation is present. [id number] mitral stenosis , with a MVA of 2.3cm (by P HT) Mild tricuspid regurgitation present. There is no evidence of pulmonary hypertension. The right v entricular systolic pressure, as measured by Doppler, is 27.93mmHg. There is no pulmonic regurgitation present. The aortic root size is normal. IVC Not well visulized. There is no pericardial effusion. CONCLUSIONS -------- 1. The left ventricular size is normal. 2. There is moderate concentric left ventricular hypertrophy. 3. Overall left ventricular systolic function is normal with, an EF between 55 - 60 %. 4. Lvot Obstruction. 5. The LVOT peak gradient is about 60 mmHG 6. Mild mitral regurgitation is present. 7. [id number] mitral stenosis. 8. , with a MVA of 2.3cm (by PHT) 9. Mild tricuspid regurgitation present. ROAD ENGINEER FREIGHT: Ashlee Silvestre RDCS
[2020-12-13 12:35] LABS: HCT 27.1 % (37.2-46.3); HGB 8.6 g/dL (12.0-15.0); MCH 34.8 pg (27.0-32.0); MCHC 31.7 g/dL (32.0-37.0); MCV 109.7 fL (80.0-97.0); Mean Platelet Volume 11.6 fL (9.5-12.2); Platelet Count 288 X 10*3/uL (140-440); RBC 2.47 X 10*6/uL (4.10-5.20); RDW 15.9 % (11.5-14.5); WBC 11.73 X 10*3/uL (4.50-10.00)
[2020-12-13 13:13] LABS: African American GFR (CKD) 53.8 (60.0-200.0); Albumin 4.1 g/dL (3.80-4.90); Albumin/Globulin Ratio 2.16 (1.60-3.17); Anion Gap 11.1 mmol/L (4.00-12.00); BUN/Creat Ratio 22.73 Ratio (12.00-20.00); Calcium 8.9 mg/dL (8.7-10.3); Carbon Dioxide 17.9 mmol/L (21.6-31.8); Globulin 1.9 g/dL (1.6-3.3); Non-African American GFR(CKD) 46.4 (60.0-200.0); Phosphorus 2.9 mg/dL (2.4-5.1); Potassium 4.6 mmol/L (3.5-5.5); Total Bilirubin 0.5 mg/dL (0.2-1.2)
[2020-12-13 15:19] LABS: Basophils # (A) 0.01 X 10*3/uL (0.00-0.10); Basophils % (A) 0.1 %; Eosinophils # (A) 0 X 10*3/uL (0.04-0.35); Eosinophils % (A) 0 %; Lymphocytes # (A) 0.76 X 10*3/uL (0.90-5.00); Lymphocytes % (A) 6.5 %; Microcytosis (M) 2+; Monocytes # (A) 0.31 X 10*3/uL (0.20-1.00); Monocytes % (A) 2.6 %; Neutrophils # (A) 10.55 X 10*3/uL (1.80-7.70); Neutrophils % (A) 89.9 %
--- NOTE | 2020-12-15 01:43 | P.DS ---
Providers Date of admission: 12/12/20 06:48 Expected date of discharge: 12/13/20 Attending physician: Nazia Phoenix Primary care physician: Luisito Reagan Hospital Course: Final Diagnosis Atypical chest pain. Ruled out ACS. Possible undelying peptic ulcer disease. Coronary artery disease history of stent placement COPD with mild exacerbation Ongoing nicotine addiction. 2 packs/day. Diabetes type 2 [id number] Chronic low back pain Osteoarthritis Macrocytic anemia. Hemoglobin 9.9 DVT prophylaxis Discharge disposition Patient is being discharged in a stable condition with guarded prognosis to home. Patient will follow-up with Dr. Luisito Reagan in the outpatient setting upon discharge. Patient is to also follow-up with cardiology Dr. Estrada in the outpatient setting. Patient will continue on Protonix daily. Total time taken is greater than 35 minutes. Hospital course Patient is a 85-year-old female with a known history of COPD, coronary artery disease with history of stent placement, diabetes type 2, hypertension, osteoarthritis, chronic low back pain, peptic ulcer disease and ongoing nicotine addiction 2 packs of cigarettes per day presents to ER with the complaints of chest discomfort. Patient states that she developed chest pain yesterday 2 hours after eating chicken soup. Chest pain is mainly left side of the chest and lower rib cage associated with shortness of breath and a squeezing-like se nsation and sometimes radiating to the back. Patient has been having chronic cough due to history of smoking. Does have nausea. No associated vomiting. No headache or dizziness or lightheadedness. No diaphoresis. Patient woke up this morning and she still having chest discomfort which made her to come to ER. EKG showed sinus rhythm with nonspecific ST-T wave changes Chest x-ray showed no acute abnormality. Laboratory data showed WBC 9.1 hemoglobin 9.9 and platelets 272 MCV 106.2 Sodium 140 potassium 3.8 chloride 110 BUN 19 and creatinine 1.09 Troponin x3 - proBNP 79 Lipase 298 12/13/2020 Patient seen and evaluated this morning by cardiogy and had 2D echo showing LVOT obstruction with an EF of 55-60%. Patient to follow up with cardiology outpatient. Patient is requesting to go home. Currently no reports of chest pain, shortness of breath, or palpitations. Patient is afebrile. No reports of nausea or vomiting and patient is tolerating diet. Patient will be discharged home today. On exam vital signs are stable. Cardio S1, S2 are muffled. Respiratory system shows diminished breath sounds at the bases with no wheezing or rhonchi noted. Abdomen is soft and nontender. Nervous system shows no focal deficits. Please refer to medication reconciliation sheet for a list of medications. Patient Condition at Discharge: Fair Plan - Discharge Summary Discharge Rx Participant: Yes New Discharge Prescriptions: New Nicotine 21Mg/24Hr Patch [Habitrol] 1 patch TRANSDERM DAILY #20 patch guaiFENesin-DM 100-10MG/5ML [Robitussin DM] 10 ml PO Q6H PRN #100 ml PRN Reason: Cough Pantoprazole Sodium [Protonix] 40 mg PO DAILY #30 tablet.dr Continue Furosemide [Lasix] 20 mg PO DAILY Ferrous Sulfate [Iron (65 MG Elemental)] 325 mg PO BID Clopidogrel [Plavix] 75 mg PO DAILY #303 tab lisinopriL [Zestril] 5 mg PO DAILY #30 tab Ipratropium [place] [Atrovent Hfa] 2 puff INHALATION RT-QID PRN PRN Reason: Shortness Of Breath Nitroglycerin Sl Tabs [Nitrostat] 0.4 mg SUBLINGUAL Q5M PRN #25 tab PRN Reason: Chest Pain Donepezil HCl [Aricept] 5 mg PO HS Aspirin EC [Ecotrin Low Dose] 81 mg PO DAILY Atorvastatin [Lipitor] 80 mg PO HS Ibuprofen [Motrin] 800 mg PO BID Albuterol Inhaler [Ventolin Hfa Inhaler] 2 puff INHALATION RT-QID PRN PRN Reason: Shortness Of Breath Metoprolol Tartrate [Lopressor] 25 mg PO DAILY Discharge Medication List Ferrous Sulfate [Iron (65 MG Elemental)] 325 mg PO BID 12/22/17 [History] Furosemide [Lasix] 20 mg PO DAILY 12/22/17 [History] Clopidogrel [Plavix] 75 mg PO DAILY #303 tab 12/24/17 [Rx] lisinopriL [Zestril] 5 mg PO DAILY #30 tab 12/24/17 [Rx] Ipratropium [place] [Atrovent Hfa] 2 puff INHALATION RT-QID PRN 10/26/18 [History] Nitroglycerin Sl Tabs [Nitrostat] 0.4 mg SUBLINGUAL Q5M PRN #25 tab 06/13/19 [Rx] Donepezil HCl [Aricept] 5 mg PO HS 12/30/18 [History] Albuterol Inhaler [Ventolin Hfa Inhaler] 2 puff INHALATION RT-QID PRN 12/12/20 [History] Aspirin EC [Ecotrin Low Dose] 81 mg PO DAILY 12/12/20 [History] Atorvastatin [Lipitor] 80 mg PO HS 12/12/20 [History] Ibuprofen [Motrin] 800 mg PO BID 12/12/20 [History] Metoprolol Tartrate [Lopressor] 25 mg PO DAILY 12/12/20 [History] Nicotine 21Mg/24Hr Patch [Habitrol] 1 patch TRANSDERM DAILY #20 patch 12/13/20 [Rx] Pantoprazole Sodium [Protonix] 40 mg PO DAILY #30 tablet. 12/13/20 [Rx] guaiFENesin-DM 100-10MG/5ML [Robitussin DM] 10 ml PO Q6H PRN #100 ml 12/13/20 [Rx] Follow up Appointment(s)/Referral(s): Luisito Reagan MD [Primary Care Provider] - 01/01/21 (as scheduled ) Derek Estrada MD [STAFF PHYSICIAN] - 12/23/20 10:15 am Patient Instructions/Handouts: Chest Pain (GEN), COPD (Chronic Obstructive Pulmonary Disease) (GEN) Activity/Diet/Wound Care/Special Instructions: Activity Limited until follow-up Follow up with primary care provider upon discharge Take medications as prescribed Avoid tobacco use Continue with Protonix 40 mg daily Follow-up with cardiology outpatient Discharge Disposition: HOME SELF-CARE
== END 2020-12-13 13:38 | disposition home or self-care (01) ==
LOC: EC 05:38 → 6NMEDSUR 06:48
PROVIDERS: ADMIT Internal Medicine; ATTEND Internal Medicine
DX: R07.89 Other chest pain (principal); J44.1 Chronic obstructive pulmonary disease with (acute) exacerbation; I25.10 Atherosclerotic heart disease of native coronary artery without angina pectoris; I08.1 Rheumatic disorders of both mitral and tricuspid valves; D53.9 Nutritional anemia, unspecified; E11.9 Type 2 diabetes mellitus without complications; I10 Essential (primary) hypertension; E78.5 Hyperlipidemia, unspecified; I25.2 Old myocardial infarction; R11.0 Nausea; K21.9 Gastro-esophageal reflux disease without esophagitis; M19.90 Unspecified osteoarthritis, unspecified site; G89.29 Other chronic pain; M54.5 Low back pain; N39.3 Stress incontinence (female) (male); F17.210 Nicotine dependence, cigarettes, uncomplicated; F41.0 Panic disorder [episodic paroxysmal anxiety]; G56.01 Carpal tunnel syndrome, right upper limb; Z79.84 Long term (current) use of oral hypoglycemic drugs; Z79.82 Long term (current) use of aspirin; Z79.02 Long term (current) use of antithrombotics/antiplatelets; Z79.899 Other long term (current) drug therapy; Z88.1 Allergy status to other antibiotic agents; Z87.01 Personal history of pneumonia (recurrent); Z87.11 Personal history of peptic ulcer disease; Z98.42 Cataract extraction status, left eye; Z98.41 Cataract extraction status, right eye; Z96.1 Presence of intraocular lens; Z90.49 Acquired absence of other specified parts of digestive tract; Z95.5 Presence of coronary angioplasty implant and graft; Z90.711 Acquired absence of uterus with remaining cervical stump; Z90.721 Acquired absence of ovaries, unilateral; Z98.890 Other specified postprocedural states; Z82.0 Family history of epilepsy and other diseases of the nervous system
CPT/HCPCS: 96376 ×3; 96372 ×2; 96361; 96374; 96375; 99285; 36415; 94640 ×3; 93005; 82747; 83880; 80053 ×2; 84443; 82607; 82550; 83690; 83735 ×2; 84100; 84484; 85025 ×2; 85610; 85730; 71046; G0378 ×2; C8929; S4990 ×2; J2270; J2920 ×2; J2930; J1885; Q9950; J1644 ×2; 93306

== ENCOUNTER 2021-11-10 18:24 | Emergency (ER) | payer MEDICARE ==
[2021-11-10] MEDS ORDERED: PANTOPRAZOLE 40 MG/10 ML VIAL IVP STA (18:32)
[2021-11-10] MEDS ORDERED: MORPHINE SULFATE 2 MG/ML SYRINGE IVP STA (18:32)
[2021-11-10 18:33] VITALS: RESP 18; TEMP 98.7
--- NOTE | 2021-11-10 18:34 | ED ---
General Adult HPI - General Chief complaint: Abdominal Pain Stated complaint: Abdominal pain Time Seen by Provider: 11/10/21 18:27 Source: patient, EMS, RN notes reviewed Mode of arrival: EMS Limitations: altered mental status - History of Present Illness Initial comments: Patient is a pleasant 86-year-old female presenting to the emergency Department with abdominal discomfort. Patient is unclear how long symptoms have been occurring however feels the past day or 2. No nausea vomiting. patient diarrhea. No fevers. No history of chronic similar symptoms previously.. Evaluation patient agrees discomfort is mostly left lower. - Related Data Home Medications Medication Instructions Recorded Confirmed Ferrous Sulfate [Iron (65 MG 325 mg PO BID 12/22/17 11/10/21 Elemental)] Furosemide [Lasix] 20 mg PO DAILY 12/22/17 11/10/21 Ipratropium [place] [Atrovent Hfa] 2 puff INHALATION RT-BID PRN 10/26/18 0 11/10/21 Donepezil HCl [Aricept] 5 mg PO HS 12/30/18 11/10/21 Albuterol Inhaler [Ventolin Hfa 2 puff INHALATION RT-QID PRN 12/12/20 11/10/21 Inhaler] Aspirin EC [Ecotrin Low Dose] 81 mg PO DAILY 12/12/20 11/10/21 Atorvastatin [Lipitor] 80 mg PO HS 12/12/20 11/10/21 Ibuprofen [Motrin] 800 mg PO BID-W/MEALS PRN 12/12/20 11/10/21 Metoprolol Tartrate [Lopressor] 25 mg PO DAILY 12/12/20 11/10/21 Acetaminophen [Tylenol Arthritis] 1,300 mg PO BID 11/10/21 11/10/21 Previous Rx's Medication Instructions Recorded Clopidogrel [Plavix] 75 mg PO DAILY #303 tab 12/24/17 lisinopriL [Zestril] 5 mg PO DAILY #30 tab 12/24/17 Nitroglycerin Sl Tabs [Nitrostat] 0.4 mg SUBLINGUAL Q5M PRN #25 tab 10/27/18 Sulfamethox-Tmp 800-160Mg [Bactrim 1 each PO Q12HR #18 tab 11/10/21 DS 800-160 mg] Allergies Allergy/AdvReac Type Severity Reaction Status Date / Time levofloxacin Allergy Anaphylaxis Verified 11/10/21 20:23 Review of Systems ROS Statement: Those systems with pertinent positive or pertinent negative responses have been documented in the HPI. ROS Other: All systems not noted in ROS Statement are negative. Constitutional: Denies: fever Eyes: Denies: eye pain ENT: Denies: ear pain Respiratory: Denies: cough Cardiovascular: Denies: chest pain Endocrine: Denies: fatigue Gastrointestinal: Reports: as per HPI, abdominal pain. Denies: nausea, vomiting, diarrhea, constipation Genitourinary: Denies: dysuria Musculoskeletal: Denies: back pain Skin: Denies: rash Neurological: Denies: weakness Past Medical History Past Medical History: Coronary Artery Disease (CAD), Chest Pain / Angina, COPD, Diabetes Mellitus, GERD/Reflux, Hypertension, Osteoarthritis (OA), Pneumonia Additional Past Medical History / Comment(s): NIDDM type II, chronic low back pain, R carpal tunnel syndrome, PUD, diverticulitis, bronchitis, urinary stress incontinence, pt is on lasix but does not recall reason. History of Any Multi-Drug Resistant Organisms: None Reported Past Surgical History: Bowel Resection, Cholecystectomy, Heart Catheterization With Stent, Hysterectomy, Tonsillectomy Additional Past Surgical History / Comment(s): Partial hysterectomy, one ovary removed d/t cyst-pt cannot recall laterallity, bowel resection d/t diverticulitis, bilateral cataract removals/lens implants. Past Anesthesia/Blood Transfusion Reactions: No Reported Reaction Date of Last Stent Placement:: 12/2017 Past Psychological History: Anxiety, Panic Disorder Smoking Status: Current every day smoker Past Alcohol Use History: None Reported Past Drug Use History: None Reported - Past Family History Mother History Unknown: Yes Additional Family Medical History / Comment(s): Mother had migraines. Father Family Medical History: No Reported History Additional Family Medical History / Comment(s): Father was healthy. General Exam Limitations: no limitations General appearance: alert, in no apparent distress Head exam: Present: normocephalic Eye exam: Present: normal appearance Neck exam: Present: normal inspection Respiratory exam: Present: normal lung sounds bilaterally Cardiovascular Exam: Present: regular rate, normal rhythm Expanded Peripheral pulses: 2+: Dorsalis Pedis (R), Dorsalis Pedis (L) GI/Abdominal exam: Present: soft. Absent: tenderness Extremities exam: Present: pedal edema (Trace bilateral). Absent: calf tenderness Neurological exam: Present: alert Psychiatric exam: Present: normal affect, normal mood Skin exam: Present: normal color Course Vital Signs 11/10/21 18:30 Temperature 98.7 F Pulse Rate 73 Respiratory 18 Rate Blood Pressure 114/96 O2 Sat by Pulse 95 Oximetry EKG Findings - EKG Comments: EKG Findings:: Sinus rhythm at 63. AR 180. QRS 72. QT 413. QTC 420. Normal axis. Normal QRS. No acute ST change. Medical Decision Making - Medical Decision Making Patient reevaluated and remained symptom-free. Patient family updated on results and plan. - Lab Data Result diagrams: 11/10/21 18:41 11/10/21 18:41 Lab Results 11/10/21 11/10/21 11/10/21 Range/Units 18:41 18:41 18:41 WBC 10.1 (3.8-10.6) k/uL RBC 2.33 L (3.80-5.40) m/uL Hgb 7.9 L (11.4-16.0) gm/dL Hct 25.7 L (34.0-46.0) % MCV 110.4 H (80.0-100.0) fL MCH 34.2 (25.0-35.0) pg MCHC 30.9 L (31.0-37.0) g/dL RDW 18.9 H (11.5-15.5) % Plt Count 311 (150-450) k/uL MPV 10.0 Neutrophils % 81 % Lymphocytes % 14 % Monocytes % 3 % Eosinophils % 1 % Basophils % 0 % Neutrophils # 8.2 H (1.3-7.7) k/uL Lymphocytes # 1.4 (1.0-4.8) k/uL Monocytes # 0.3 (0-1.0) k/uL Eosinophils # 0.1 (0-0.7) k/uL Basophils # 0.0 (0-0.2) k/uL Manual Slide Review Performed Polychromasia Present Hypochromasia Moderate Basophilic Stippling Present Anisocytosis Slight Macrocytosis Marked A Target Cells Present Ovalocytes Present PT 10.2 (9.0-12.0) sec INR 0.9 (<1.2) APTT 20.5 L (22.0-30.0) sec Sodium (137-145) mmol/L Potassium (3.5-5.1) mmol/L Chloride (98-107) mmol/L Carbon Dioxide (22-30) mmol/L Anion Gap mmol/L BUN (7-17) mg/dL Creatinine (0.52-1.04) mg/dL Est GFR (CKD-EPI)AfAm (>60 ml/min/1.73 sqM) Est GFR (CKD-EPI)NonAf (>60 ml/min/1.73 sqM) Glucose (74-99) mg/dL Calcium (8.4-10.2) mg/dL Total Bilirubin (0.2-1.3) mg/dL AST (14-36) U/L ALT (4-34) U/L Alkaline Phosphatase (38-126) U/L Troponin I (0.000-0.034) ng/mL Total Protein (6.3-8.2) g/dL Albumin (3.5-5.0) g/dL Amylase (30-110) U/L Lipase (23-300) U/L Urine Color Light Yellow Urine Appearance Clear (Clear) Urine pH 5.5 (5.0-8.0) Ur Specific [place] 1.009 (1.001-1.035) Urine Protein Negative (Negative) Urine Glucose (UA) Negative (Negative) Urine Ketones Negative (Negative) Urine Blood Negative (Negative) Urine Nitrite Positive H (Negative) Urine Bilirubin Negative (Negative) Urine Urobilinogen <2.0 (<2.0) mg/dL Ur Leukocyte Esterase Small H (Negative) Urine RBC 1 (0-5) /hpf Urine WBC 21 H (0-5) /hpf Urine WBC Clumps Rare H (None) /hpf Urine Bacteria Many H (None) /hpf 11/10/21 11/10/21 Range/Units 18:41 18:41 WBC (3.8-10.6) k/uL RBC (3.80-5.40) m/uL Hgb (11.4-16.0) gm/dL Hct (34.0-46.0) % MCV (80.0-100.0) fL MCH (25.0-35.0) pg MCHC (31.0-37.0) g/dL RDW (11.5-15.5) % Plt Count (150-450) k/uL MPV Neutrophils % % Lymphocytes % % Monocytes % % Eosinophils % % Basophils % % Neutrophils # (1.3-7.7) k/uL Lymphocytes # (1.0-4.8) k/uL Monocytes # (0-1.0) k/uL Eosinophils # (0-0.7) k/uL Basophils # (0-0.2) k/uL Manual Slide Review Polychromasia Hypochromasia Basophilic Stippling Anisocytosis Macrocytosis Target Cells Ovalocytes PT (9.0-12.0) sec INR (<1.2) APTT (22.0-30.0) sec Sodium 134 L (137-145) mmol/L Potassium 4.3 (3.5-5.1) mmol/L Chloride 105 (98-107) mmol/L Carbon Dioxide 26 (22-30) mmol/L Anion Gap 3 mmol/L BUN 25 H (7-17) mg/dL Creatinine 0.96 (0.52-1.04) mg/dL Est GFR (CKD-EPI)AfAm 63 (>60 ml/min/1.73 sqM) Est GFR (CKD-EPI)NonAf 55 (>60 ml/min/1.73 sqM) Glucose 108 H (74-99) mg/dL Calcium 8.5 (8.4-10.2) mg/dL Total Bilirubin 0.6 (0.2-1.3) mg/dL AST 27 (14-36) U/L ALT 23 (4-34) U/L Alkaline Phosphatase 72 (38-126) U/L Troponin I <0.012 (0.000-0.034) ng/mL Total Protein 5.8 L (6.3-8.2) g/dL Albumin 3.8 (3.5-5.0) g/dL Amylase 59 (30-110) U/L Lipase 201 (23-300) U/L Urine Color Urine Appearance (Clear) Urine pH (5.0-8.0) Ur Specific [place] (1.001-1.035) Urine Protein (Negative) Urine Glucose (UA) (Negative) Urine Ketones (Negative) Urine Blood (Negative) Urine Nitrite (Negative) Urine Bilirubin (Negative) Urine Urobilinogen (<2.0) mg/dL Ur Leukocyte Esterase (Negative) Urine RBC (0-5) /hpf Urine WBC (0-5) /hpf Urine WBC Clumps (None) /hpf Urine Bacteria (None) /hpf - Radiology Data Radiology results: image reviewed (Chest x-ray shows some pleural reaction, similar to previous) Disposition Clinical Impression: Abdominal pain, Urinary tract infection Disposition: HOME SELF-CARE Condition: Stable Instructions (If sedation given, give patient instructions): Abdominal Pain (ED), Urinary Tract Infection in Women (ED) Additional Instructions: Prescription sent to pharmacy. Please follow-up with primary care physician in the next day or 2 for recheck. Return for increased pain, worsening pain, not tolerating fluids or vomiting, worsening symptoms or other concerns. Prescriptions: Sulfamethox-Tmp 800-160Mg [Bactrim DS 800-160 mg] 1 each PO Q12HR #18 tab Is patient prescribed a controlled substance at d/c from ED?: No Referrals: Luisito Reagan MD [Primary Care Provider] - 1-2 days Time of Disposition: 21:02
[2021-11-10 18:48] LABS: Anisocytosis Slight; Basophils % (A) 0 %; Eosinophils # (A) 0.1 k/uL (0-0.7); Eosinophils % (A) 1 %; HCT 25.7 % (34.0-46.0); HGB 7.9 gm/dL (11.4-16.0); Hypochromasia Moderate; Lymphocytes # (A) 1.4 k/uL (1.0-4.8); Lymphocytes % (A) 14 %; MCH 34.2 pg (25.0-35.0); MCHC 30.9 g/dL (31.0-37.0); MCV 110.4 fL (80.0-100.0); Monocytes # (A) 0.3 k/uL (0-1.0); Monocytes % (A) 3 %; Neutrophils # (A) 8.2 k/uL (1.3-7.7); Neutrophils % (A) 81 %; Platelet Count 311 k/uL (150-450); RBC 2.33 m/uL (3.80-5.40); RDW 18.9 % (11.5-15.5); WBC 10.1 k/uL (3.8-10.6)
[2021-11-10 18:57] LABS: Macrocytosis Marked
[2021-11-10 19:00] LABS: Albumin 3.8 g/dL (3.5-5.0); Calcium 8.5 mg/dL (8.4-10.2); Potassium 4.3 mmol/L (3.5-5.1); Total Bilirubin 0.6 mg/dL (0.2-1.3); Total Protein 5.8 g/dL (6.3-8.2)
[2021-11-10 19:03] LABS: INR 0.9 (<1.2); Prothrombin Time 10.2 sec (9.0-12.0)
[2021-11-10 19:13] LABS: Partial Thromboplastin Time 20.5 sec (22.0-30.0)
[2021-11-10 19:24] LABS: Basophilic Stippling Present; Ovalocytes Present; Polychromasia Present; Target Cells Present
--- NOTE | 2021-11-10 20:09 | CT ---
EXAMINATION TYPE: CT abdomen pelvis w con DATE OF EXAM: 11/10/2021 COMPARISON: 12/23/2018 HISTORY: abdominal pain CT DLP: 917.1 mGycm Automated exposure control for dose reduction was used. CONTRAST: Performed with IV Contrast, patient injected with 80ml mL of Isovue 300. Images obtained from the diaphragm to the floor the pelvis with IV contrast. Lung bases are clear. No pleural effusion. Heart size is normal. No pericardial effusion. Liver spleen and stomach pancreas appear intact. There are clips from cholecystectomy. The bile ducts are not dilated. There is no adrenal mass. Kidneys of normal size and contour. There is no hydronephrosis. There is no rmal contrast opacification of the kidneys. Delayed images show normal renal excretion. No retroperit evans adenopathy. Ureters are not dilated. Abdominal aorta is atheromatous. Bladder distends smoothly. No inguinal hernia. No free fluid in the pelvis. No sign of pelvic mass. U terus is anteverted. There is no mesenteric edema. No ascites or free air. No bowel obstruction. Appendix is posterior and appears normal. Lumbar vertebra show normal alignment. There is mild vacuum disc. No compression fracture. Posterior element are intact. The hip joints are intact. Bony pelvis is intact. IMPRESSION: Atherosclerotic vascular disease. Normal appendix. No acute abnormality in the abdomen and pelvis.
[2021-11-10 20:18] LABS: Appearance,Urine Clear (Clear); Bacteria,Urine Many /hpf; Bilirubin,Urine Negative (Negative); Blood,Urine Negative (Negative); Color,Urine Light Yellow; Glucose,Urine (UA) Negative (Negative); Ketones,Urine Negative (Negative); Leukocyte Esterase,Urine Small (Negative); Nitrite,Urine Positive (Negative); PH, Urine 5.5 (5.0-8.0); Protein,Urine Negative (Negative); RBC,Urine 1 /hpf (0-5); Specific Gravity,Urine 1.009 (1.001-1.035); Urobilinogen,Urine <2.0 mg/dL (<2.0); WBC,Urine 21 /hpf (0-5)
--- NOTE | 2021-11-10 20:42 | XR ---
EXAMINATION TYPE: XR chest 2V DATE OF EXAM: 11/10/2021 COMPARISON: 12/12/2020 HISTORY: Abdominal pain TECHNIQUE: FINDINGS: Heart is normal. There is mild blunting of the costophrenic angles. There are no hilar mass es. Bony thorax is intact. No heart failure. IMPRESSION: There is some mild pleural reaction at the lateral lung bases similar to old exam. Normal heart.
[2021-11-10] MEDS ORDERED: SULFAMETH-TMP DS STARTER PACK 2 TAB BTL PO STA (21:01)
[2021-11-10 21:46] VITALS: BP 105/40; PULSE 77
== END 2021-11-10 21:46 | disposition home or self-care (01) ==
LOC: EC 18:24
DX: N39.0 Urinary tract infection, site not specified (principal); E11.9 Type 2 diabetes mellitus without complications; I10 Essential (primary) hypertension; I25.10 Atherosclerotic heart disease of native coronary artery without angina pectoris; J44.9 Chronic obstructive pulmonary disease, unspecified; K21.9 Gastro-esophageal reflux disease without esophagitis; M19.90 Unspecified osteoarthritis, unspecified site; F41.9 Anxiety disorder, unspecified; F17.200 Nicotine dependence, unspecified, uncomplicated; Z79.82 Long term (current) use of aspirin; Z79.51 Long term (current) use of inhaled steroids; Z79.02 Long term (current) use of antithrombotics/antiplatelets; Z79.899 Other long term (current) drug therapy
CPT/HCPCS: 36415; 93005; 80053; 82150; 83690; 84484; 85025; 85610; 85730; 81001; 87086; 71046; 74177; 99285; 96374; 96375; J2270; C9113; Q9967

== ENCOUNTER 2024-01-13 16:14 | Inpatient (IN) | payer MEDICARE ==
--- NOTE | 2024-01-13 16:19 | ED ---
Altered Mental Status HPI - General Stated Complaint: AMS Time Seen by Provider: 01/13/24 16:17 Source: RN notes reviewed, old records reviewed, Caregiver Mode of arrival: EMS Limitations: altered mental status, physical limitation - History of Present Illness Initial Comments: This is an 88-year-old female to ER for evaluation of altered mental status and confusion and unable to provide accurate history patient was brought in by EMS for altered mental status decreased level of responsiveness MD Complaint: altered mental status, confusion, decreased responsiveness, weakness -: unknown Severity: severe Consistency of Symptoms: waxing and waning Associated Symptoms: denies other symptoms Treatments Prior to Arrival: IV fluid, oxygen - Related Data Home Medications Medication Instructions Recorded Confirmed Ferrous Sulfate [Iron (65 MG 325 mg PO BID 12/22/17 01/13/24 Elemental)] Furosemide [Lasix] 20 mg PO DAILY 12/22/17 01/13/24 Donepezil HCl [Aricept] 5 mg PO HS 12/30/18 01/13/24 Albuterol Inhaler [Ventolin Hfa 2 puff INHALATION RT-QID PRN 12/12/20 01/13/24 Inhaler] Aspirin EC [Ecotrin Low Dose] 81 mg PO DAILY 12/12/20 01/13/24 Atorvastatin [Lipitor] 80 mg PO HS 12/12/20 01/13/24 Metoprolol Tartrate [Lopressor] 12.5 mg PO DAILY 12/12/20 01/13/24 Ergocalciferol [Vitamin D2 (1250 1,250 mcg PO Q7D 01/13/24 01/13/24 Mcg = 51649 Iu)] Sulfamethox-Tmp 800-160Mg [Bactrim 1 tab PO Q12HR 01/13/24 01/13/24 DS 800-160 mg] Previous Rx's Medication Instructions Recorded Clopidogrel [Plavix] 75 mg PO DAILY #303 tab 12/24/17 Allergies Allergy/AdvReac Type Severity Reaction Status Date / Time levofloxacin Allergy Anaphylaxis Verified 01/13/24 17:33 Review of Systems ROS Statement: Those systems with pertinent positive or pertinent negative responses have been documented in the HPI. ROS Other: All systems not noted in ROS Statement are negative. Past Medical History Past Medical History: Coronary Artery Disease (CAD), Chest Pain / Angina, COPD, Diabetes Mellitus, GERD/Reflux, Hypertension, Osteoarthritis (OA), Pneumonia Additional Past Medical History / Comment(s): NIDDM type II, chronic low back pain, R carpal tunnel syndrome, PUD, diverticulitis, bronchitis, urinary stress incontinence, pt is on lasix but does not recall reason. History of Any Multi-Drug Resistant Organisms: None Reported Past Surgical History: Bowel Resection, Cholecystectomy, Heart Catheterization With Stent, Hysterectomy, Tonsillectomy Additional Past Surgical History / Comment(s): Partial hysterectomy, one ovary removed d/t cyst-pt cannot recall laterallity, bowel resection d/t div erticulitis, bilateral cataract removals/lens implants. Past Anesthesia/Blood Transfusion Reactions: No Reported Reaction Date of Last Stent Placement:: 12/2017 Past Psychological History: Anxiety, Panic Disorder Smoking Status: Current every day smoker Past Alcohol Use History: None Reported Past Drug Use History: None Reported - Past Family History Mother History Unknown: Yes Additional Family Medical History / Comment(s): Mother had migraines. Father Family Medical History: No Reported History Additional Family Medical History / Comment(s): Father was healthy. General Exam General appearance: alert, in no apparent distress, anxious Head exam: Present: atraumatic, normocephalic, normal inspection Eye exam: Present: normal appearance, PERRL, EOMI. Absent: scleral icterus, conjunctival injection, periorbital swelling ENT exam: Present: normal exam, mucous membranes moist Neck exam: Present: normal inspection. Absent: tenderness, meningismus, lymphadenopathy Respiratory exam: Present: normal lung sounds bilaterally. Absent: respiratory distress, wheezes, rales, rhonchi, stridor Cardiovascular Exam: Present: regular rate, normal rhythm, normal heart sounds. Absent: systolic murmur, diastolic murmur, rubs, gallop, clicks GI/Abdominal exam: Present: soft, normal bowel sounds. Absent: distended, tenderness, guarding, rebound, rigid Extremities exam: Present: normal inspection, full ROM, normal capillary refill. Absent: tenderness, pedal edema, joint swelling, calf tenderness Back exam: Present: normal inspection Neurological exam: Present: alert, oriented X3, CN II-XII intact Psychiatric exam: Present: normal affect, normal mood Skin exam: Present: warm, dry, intact, normal color. Absent: rash Course Vital Signs 01/13/24 01/13/24 01/13/24 16:33 17:06 17:14 Temperature 97 F L Pulse Rate 105 H 101 H 102 H Pulse Rate [ Administrative Program Specialist ] Respiratory 24 24 Rate Blood Pressure 94/40 72/33 81/31 Blood Pressure [Left Arm] O2 Sat by Pulse 99 Oximetry 01/13/24 01/13/24 01/13/24 17:38 17:46 18:00 Temperature Pulse Rate 107 H 102 H Pulse Rate [ Administrative Program Specialist ] Respiratory 26 H 18 Rate Blood Pressure 87/43 88/52 99/57 Blood Pressure [Left Arm] O2 Sat by Pulse Oximetry 01/13/24 01/13/24 01/13/24 18:15 18:29 19:02 Temperature Pulse Rate 103 H 103 H Pulse Rate [ Administrative Program Specialist ] Respiratory 26 H 28 H Rate Blood Pressure 88/64 98/64 Blood Pressure [Left Arm] O2 Sat by Pulse 100 Oximetry 01/13/24 01/13/24 01/13/24 19:49 21:18 21:31 Temperature 97.3 F L 97.2 F L Pulse Rate 109 H 110 H 112 H Pulse Rate [ Administrative Program Specialist ] Respiratory 22 20 20 Rate Blood Pressure 93/33 61/29 82/37 Blood Pressure [Left Arm] O2 Sat by Pulse 99 88 L Oximetry 01/13/24 01/13/24 01/13/24 21:38 21:49 21:51 Temperature 97.4 F L Pulse Rate 112 H 111 H 111 H Pulse Rate [ Administrative Program Specialist ] Respiratory 20 20 Rate Blood Pressure 82/37 81/53 80/35 Blood Pressure [Left Arm] O2 Sat by Pulse 88 L 100 Oximetry 01/13/24 01/13/24 01/13/24 21:56 22:50 23:06 Temperature Pulse Rate 112 H 115 H Pulse Rate [ 115 H Administrative Program Specialist ] Respiratory 20 Rate Blood Pressure 83/68 77/43 Blood Pressure 86/39 [Left Arm] O2 Sat by Pulse 100 100 Oximetry 01/13/24 01/13/24 01/13/24 23:23 23:25 23:45 Temperature 97.3 F L 97.1 F L Pulse Rate 113 H 114 H 112 H Pulse Rate [ Administrative Program Specialist ] Respiratory 20 20 20 Rate Blood Pressure 84/50 82/35 88/41 Blood Pressure [Left Arm] O2 Sat by Pulse 100 100 100 Oximetry 01/14/24 01/14/24 01/14/24 00:05 01:39 01:52 Temperature 97.3 F L 97.4 F L 97.5 F L Pulse Rate 112 H 105 H 111 H Pulse Rate [ Administrative Program Specialist ] Respiratory 22 20 20 Rate Blood Pressure 95/40 94/43 102/44 Blood Pressure [Left Arm] O2 Sat by Pulse 100 100 100 Oximetry 01/14/24 01/14/24 01/14/24 02:12 03:56 05:00 Temperature 97.4 F L 97.5 F L Pulse Rate 113 H 107 H 108 H Pulse Rate [ Administrative Program Specialist ] Respiratory 20 20 20 Rate Blood Pressure 102/44 100/41 101/43 Blood Pressure [Left Arm] O2 Sat by Pulse 100 100 100 Oximetry 01/14/24 01/14/24 01/14/24 06:00 09:46 12:05 Temperature Pulse Rate 108 H 114 H Pulse Rate [ Administrative Program Specialist ] Respiratory 20 18 Rate Blood Pressure 109/55 105/44 Blood Pressure [Left Arm] O2 Sat by Pulse 99 95 98 Oximetry 01/14/24 01/14/24 01/14/24 13:00 16:08 19:00 Temperature Pulse Rate 108 H 110 H 113 H Pulse Rate [ Administrative Program Specialist ] Respiratory 24 20 22 Rate Blood Pressure 111/44 99/51 111/47 Blood Pressure [Left Arm] O2 Sat by Pulse 100 100 Oximetry 01/14/24 01/14/24 19:22 20:50 Temperature 99.3 F 99.1 F Pulse Rate 115 H 114 H Pulse Rate [ Administrative Program Specialist ] Respiratory 20 18 Rate Blood Pressure 107/44 Blood Pressure [Left Arm] O2 Sat by Pulse 100 100 Oximetry - Reevaluation(s) Reevaluation #1: 01/13/24 16:43 Medical records reviewed Reevaluation #2: 01/13/24 16:43 Patient symptoms unchanged Reevaluation #3: Patient and family informed of results and questions answered spoke with at length regarding plan of care, the do not want further intervention patient is in no code and will transition to comfort care Reevaluation #4: Was pt. sent in by a medical professional or institution (, PA, CHUCK TENDER, urgent care, hospital, or fpc...) When possible be specific @ -no Did you speak to anyone other than the patient for history (EMS, parent, family, police, friend...)? What history was obtained from this source @ -no Did you review nursing and triage notes (agree or disagree)? Why? @ -agree Are old charts reviewed (outside hosp., previous admission, EMS record, old EKG, old radiological studies, urgent care reports/EKG's, fpc records)? Report findings @ -yes Differential Diagnosis (chest pain, altered mental status, abdominal pain women, abdominal pain men, vaginal bleeding, weakness, fever, dyspnea, syncope, headache, dizziness, GI bleed, back pain, seizure, CVA, palpatations, mental health, musculoskeletal)? @ -prior EKG interpreted by me (3pts min.). @ -yes X-rays interpreted by me (1pt min.). @ -no CT interpreted by me (1pt min.). @ -yes negative for acute disease U/S interpreted by me (1pt. min.). @ -no What testing was considered but not performed or refused? (CT, X-rays, U/S, labs)? Why? @ -none What meds were considered but not given or refused? Why? @ -none Did you discuss the management of the patient with other professionals (professionals i.e. , PA, CHUCK TENDER, lab, RT, psych nurse, social service director, processing supervisor, teacher, licensed loan officer, immigration case manager)? Give summary @ -no Was smoking cessation discussed for >3mins.? @ -no Was critical care preformed (if so, how long)? @ -no Were there social determinants of health that impacted care today? How? (Homelessness, low income, unemployed, alcoholism, drug addiction, transportation, low edu. Level, literacy, decrease access to med. care, usp, rehab)? @ -none Was there de-escalation of care discussed even if they declined (Discuss DNR or withdrawal of care, Hospice)? DNR status @ -no What co-morbidities impacted this encounter? (DM, HTN, Smoking, COPD, CAD, Cancer, CVA, ARF, Chemo, Hep., AIDS, mental health diagnosis, sleep apnea, morbid obesity)? @ -none Was patient admitted / discharged? Hospital course, mention meds given and route, prescriptions, significant lab abnormalities, going to OR and other pertinent info. @ - 88 female with severe anemia and GI bleed and significant electrolyte medical laboratory abnormalities. Patient will be admitted and transitioning to comfort care Admitted Undiagnosed new problem with uncertain prognosis? @ -no Drug Therapy requiring intensive monitoring for toxicity (Heparin, Nitro, Insulin, Cardizem)? @ -no Were any procedures done? @ -no Diagnosis/symptom? @ -GI bleed and anemia Acute, or Chronic, or Acute on Chronic? @ -Acute Uncomplicated (without systemic symptoms) or Complicated (systemic symptoms)? @ -Complicated Side effects of treatment? @ -no Exacerbation, Progression, or Severe Exacerbation? @ -exacerbation Poses a threat to life or bodily function? How? (Chest pain, USA, CT, pneumonia, PE, COPD, DKA, ARF, appy, cholecystitis, CVA, Diverticulitis, Homicidal, Suicidal, threat to staff... and all critical care pts) @ -yes Reevaluation #5: Differential Altered Mental Status: Hypoglycemia, DKA, hypercapnia, ETOH, overdose, CO poisoning, trauma, myxedema coma, HTN encephalopathy, infection, encephalitis, psychosis, intercranial hemorrhage, hepatic encephalopathy, meningitis, CVA, this is not meant to be an all-inclusive list Medical Decision Making - Medical Decision Making 88 female with severe anemia and GI bleed and significant electrolyte medical laboratory abnormalities. Patient will be admitted and transitioning to comfort care - Lab Data Result diagrams: 01/14/24 06:25 01/14/24 06:25 Lab Results 01/13/24 01/13/24 01/13/24 Range/Units 16:55 16:55 16:55 WBC 27.6 H (3.8-10.6) k/uL RBC 1.65 L (3.80-5.40) m/uL Hgb 4.3 L* (11.4-16.0) gm/dL Hct 16.5 L* (34.0-46.0) % MCV 100.1 H (80.0-100.0) fL MCH 26.0 (25.0-35.0) pg MCHC 26.0 L (31.0-37.0) g/dL RDW 26.0 H (11.5-15.5) % Plt Count 342 (150-450) k/uL MPV 9.2 Neutrophils % (Manual) 80 % Lymphocytes % (Manual) 18 % Eosinophils % (Manual) 1 % Metamyelocytes % 2 % Neutrophils # (Manual) 22.08 H (1.3-7.7) k/uL Lymphocytes # (Manual) 4.97 H (1.0-4.8) k/uL Eosinophils # (Manual) 0.28 (0-0.7) k/uL Metamyelocytes # (Man) 0.55 H (0) k/uL Nucleated RBCs 31 H (0-0) /100 WBC Manual Slide Review Performed Polychromasia Present Hypochromasia Marked Poikilocytosis Slight Anisocytosis Marked Macrocytosis Marked A PT 15.4 H (10.0-12.5) sec INR 1.5 H (<1.2) APTT 21.4 L (22.0-30.0) sec Sodium (137-145) mmol/L Potassium (3.5-5.1) mmol/L Chloride (98-107) mmol/L Carbon Dioxide (22-30) mmol/L Anion Gap mmol/L BUN (7-17) mg/dL Creatinine (0.52-1.04) mg/dL Est GFR (CKD-EPI)AfAm (>60 ml/min/1.73 sqM) Est GFR (CKD-EPI)NonAf (>60 ml/min/1.73 sqM) Glucose (74-99) mg/dL Lactic Ac Sepsis Rflx Plasma Lactic Acid Vishal (0.7-2.0) mmol/L Calcium (8.4-10.2) mg/dL Phosphorus (2.5-4.5) mg/dL Magnesium (1.6-2.3) mg/dL Total Bilirubin (0.2-1.3) mg/dL AST (14-36) U/L ALT (4-34) U/L Alkaline Phosphatase (38-126) U/L Troponin I (0.000-0.034) ng/mL Total Protein (6.3-8.2) g/dL Albumin (3.5-5.0) g/dL Urine Color Yellow Urine Appearance Clear (Clear) Urine pH 5.0 (5.0-8.0) Ur Specific [place] 1.018 (1.001-1.035) Urine Protein Negative (Negative) Urine Glucose (UA) Negative (Negative) Urine Ketones Negative (Negative) Urine Blood Negative (Negative) Urine Nitrite Negative (Negative) Urine Bilirubin Negative (Negative) Urine Urobilinogen <2.0 (<2.0) mg/dL Ur Leukocyte Esterase Negative (Negative) Stool Occult Blood (Negative) Blood Type Blood Type Recheck Bld Type Recheck Status Antibody Screen Crossmatch Spec Expiration Date 01/13/24 01/13/24 01/13/24 Range/Units 16:55 16:55 16:55 WBC (3.8-10.6) k/uL RBC (3.80-5.40) m/uL Hgb (11.4-16.0) gm/dL Hct (34.0-46.0) % MCV (80.0-100.0) fL MCH (25.0-35.0) pg MCHC (31.0-37.0) g/dL RDW (11.5-15.5) % Plt Count (150-450) k/uL MPV Neutrophils % (Manual) % Lymphocytes % (Manual) % Eosinophils % (Manual) % Metamyelocytes % % Neutrophils # (Manual) (1.3-7.7) k/uL Lymphocytes # (Manual) (1.0-4.8) k/uL Eosinophils # (Manual) (0-0.7) k/uL Metamyelocytes # (Man) (0) k/uL Nucleated RBCs (0-0) /100 WBC Manual Slide Review Polychromasia Hypochromasia Poikilocytosis Anisocytosis Macrocytosis PT (10.0-12.5) sec INR (<1.2) APTT (22.0-30.0) sec Sodium 140 (137-145) mmol/L Potassium 6.5 H* (3.5-5.1) mmol/L Chloride 111 H (98-107) mmol/L Carbon Dioxide <5 L* (22-30) mmol/L Anion Gap mmol/L BUN 105 H* (7-17) mg/dL Creatinine 4.63 H (0.52-1.04) mg/dL Est GFR (CKD-EPI)AfAm 9 (>60 ml/min/1.73 sqM) Est GFR (CKD-EPI)NonAf 8 (>60 ml/min/1.73 sqM) Glucose 105 H (74-99) mg/dL Lactic Ac Sepsis Rflx Plasma Lactic Acid Vishal 11.5 H* (0.7-2.0) mmol/L Calcium 8.1 L (8.4-10.2) mg/dL Phosphorus 10.9 H* (2.5-4.5) mg/dL Magnesium 3.0 H (1.6-2.3) mg/dL Total Bilirubin 1.1 (0.2-1.3) mg/dL AST 306 H (14-36) U/L ALT 46 H (4-34) U/L Alkaline Phosphatase 157 H (38-126) U/L Troponin I 0.044 H* (0.000-0.034) ng/mL Total Protein 5.0 L (6.3-8.2) g/dL Albumin 3.0 L (3.5-5.0) g/dL Urine Color Urine Appearance (Clear) Urine pH (5.0-8.0) Ur Specific [place] (1.001-1.035) Urine Protein (Negative) Urine Glucose (UA) (Negative) Urine Ketones (Negative) Urine Blood (Negative) Urine Nitrite (Negative) Urine Bilirubin (Negative) Urine Urobilinogen (<2.0) mg/dL Ur Leukocyte Esterase (Negative) Stool Occult Blood (Negative) Blood Type Blood Type Recheck Bld Type Recheck Status Antibody Screen Crossmatch Spec Expiration Date 01/13/24 01/13/24 01/13/24 Range/Units 16:55 17:59 18:55 WBC (3.8-10.6) k/uL RBC (3.80-5.40) m/uL Hgb (11.4-16.0) gm/dL Hct (34.0-46.0) % MCV (80.0-100.0) fL MCH (25.0-35.0) pg MCHC (31.0-37.0) g/dL RDW (11.5-15.5) % Plt Count (150-450) k/uL MPV Neutrophils % (Manual) % Lymphocytes % (Manual) % Eosinophils % (Manual) % Metamyelocytes % % Neutrophils # (Manual) (1.3-7.7) k/uL Lymphocytes # (Manual) (1.0-4.8) k/uL Eosinophils # (Manual) (0-0.7) k/uL Metamyelocytes # (Man) (0) k/uL Nucleated RBCs (0-0) /100 WBC Manual Slide Review Polychromasia Hypochromasia Poikilocytosis Anisocytosis Macrocytosis PT (10.0-12.5) sec INR (<1.2) APTT (22.0-30.0) sec Sodium (137-145) mmol/L Potassium (3.5-5.1) mmol/L Chloride (98-107) mmol/L Carbon Dioxide (22-30) mmol/L Anion Gap mmol/L BUN (7-17) mg/dL Creatinine (0.52-1.04) mg/dL Est GFR (CKD-EPI)AfAm (>60 ml/min/1.73 sqM) Est GFR (CKD-EPI)NonAf (>60 ml/min/1.73 sqM) Glucose (74-99) mg/dL Lactic Ac Sepsis Rflx Y Plasma Lactic Acid Vishal (0.7-2.0) mmol/L Calcium (8.4-10.2) mg/dL Phosphorus (2.5-4.5) mg/dL Magnesium (1.6-2.3) mg/dL Total Bilirubin (0.2-1.3) mg/dL AST (14-36) U/L ALT (4-34) U/L Alkaline Phosphatase (38-126) U/L Troponin I (0.000-0.034) ng/mL Total Protein (6.3-8.2) g/dL Albumin (3.5-5.0) g/dL Urine Color Urine Appearance (Clear) Urine pH (5.0-8.0) Ur Specific [place] (1.001-1.035) Urine Protein (Negative) Urine Glucose (UA) (Negative) Urine Ketones (Negative) Urine Blood (Negative) Urine Nitrite (Negative) Urine Bilirubin (Negative) Urine Urobilinogen (<2.0) mg/dL Ur Leukocyte Esterase (Negative) Stool Occult Blood Positive H (Negative) Blood Type A Positive Blood Type Recheck A Pos Bld Type Recheck Status No Antibody Screen NEGATIVE Crossmatch See Detail Spec Expiration Date 01/16/20242354 - EKG Data -: EKG Interpreted by Me (EKG is sinus tach 106 RI 190 QRS 86 QTc 406) - Radiology Data Radiology results: report reviewed (CT brain CT chest abdomen pelvis negative for acute disease), image reviewed Critical Care Time Critical Care Time: Yes Total Critical Care Time: 31 Disposition Clinical Impression: Dizziness, Altered mental status, GI bleed, Anemia, Lactic acidosis Disposition: ADMITTED IP TO THIS HOSP Is patient prescribed a controlled substance at d/c from ED?: No Time of Disposition: 19:00
[2024-01-13] MEDS: SODIUM CHLORIDE 0.9% 1,000 ML IV STA ×3 (17:00→18:36)
[2024-01-13 17:35] LABS: AST 306 U/L (14-36); Alkaline Phosphatase 157 U/L (38-126); Calcium 8.1 mg/dL (8.4-10.2); Chloride 111 mmol/L (98-107); Glucose 105 mg/dL (74-99); Sodium 140 mmol/L (137-145); Total Bilirubin 1.1 mg/dL (0.2-1.3)
[2024-01-13 17:41] LABS: African American GFR (CKD) 9 (>60 ml/min/1.73 sqM); Non-African American GFR(CKD) 8 (>60 ml/min/1.73 sqM)
[2024-01-13] MEDS: MORPHINE SULFATE 2 MG/ML SYRINGE IVP STA ×2 (17:43→21:48)
[2024-01-13 17:59] LABS: Blood Urea Nitrogen 105 mg/dL (7-17); Carbon Dioxide <5 mmol/L (22-30); Potassium 6.5 mmol/L (3.5-5.1)
[2024-01-13 18:00] LABS: ALT 46 U/L (4-34); Phosphorus 10.9 mg/dL (2.5-4.5)
[2024-01-13 18:01] LABS: Appearance,Urine Clear (Clear); Bilirubin,Urine Negative (Negative); Blood,Urine Negative (Negative); Color,Urine Yellow; Glucose,Urine (UA) Negative (Negative); Ketones,Urine Negative (Negative); Leukocyte Esterase,Urine Negative (Negative); Nitrite,Urine Negative (Negative); Protein,Urine Negative (Negative); Specific Gravity,Urine 1.018 (1.001-1.035); Urobilinogen,Urine <2.0 mg/dL (<2.0)
[2024-01-13 18:02] LABS: Anisocytosis Marked; Hypochromasia Marked; MCV 100.1 fL (80.0-100.0); Macrocytosis Marked; Mean Platelet Volume 9.2; Platelet Count 342 k/uL (150-450); Poikilocytosis Slight; RBC 1.65 m/uL (3.80-5.40)
[2024-01-13 18:03] LABS: INR 1.5 (<1.2); Prothrombin Time 15.4 sec (10.0-12.5)
[2024-01-13 18:08] LABS: HCT 16.5 % (34.0-46.0); HGB 4.3 gm/dL (11.4-16.0)
[2024-01-13 18:11] LABS: Partial Thromboplastin Time 21.4 sec (22.0-30.0)
[2024-01-13 18:32] LABS: Eosinophils # (M) 0.28 k/uL (0-0.7); Lymphocytes # (M) 4.97 k/uL (1.0-4.8); Metamyelocytes # (M) 0.55 k/uL (0); Metamyelocytes % 2 %; Neutrophils # (M) 22.08 k/uL (1.3-7.7); Neutrophils % (M) 80 %; Nucleated Red Blood Cells 31 /100 WBC (0-0); Polychromasia Present; Total Cells Counted 200; WBC 27.6 k/uL (3.8-10.6)
[2024-01-13] MEDS: LORazepam 2 MG/ML INJ IV STA (18:36)
[2024-01-13] MEDS: SODIUM BICARB 8.4% 50 ML SYR (1 MEQ/ML) IV STA ×2 (19:01→19:02)
[2024-01-13] MEDS ORDERED: NALOXONE 0.4 MG/ML 1 ML VIAL IV PRN (19:18)
[2024-01-13] MEDS ORDERED: ONDANSETRON 4 MG/2 ML VIAL IVP PRN (19:18)
[2024-01-13] MEDS: MORPHINE SULFATE 2 MG/ML SYRINGE IV PRN (19:46)
--- NOTE | 2024-01-13 19:52 | CT ---
EXAMINATION TYPE: CT brain wo con DATE OF EXAM: 01/13/2024 COMPARISON: 12/22/2017 HISTORY: 88 year-old female altered mental status, confusion, weakness TECHNIQUE: Examination was done in axial plane without intravenous contrast. Coronal and sagittal r econstructions performed. CT DLP: 1802.6 mGycm Automated exposure control for dose reduction was used. FINDINGS: There is mild generalized cortical volume loss and conventional head positioning in the gantry result ing axial oblique imaging causing some limitation in assessment. Allowing for this limitation, there is no evidence of acute intracranial hemorrhage, acute ischemic changes, mass, mass-effect, or extra -axial fluid collection. There is no effacement of cerebral sulci or basal subarachnoid cisterns. T here is no hydrocephalus. There is no midline shift. Moura-white matter distinction is preserved. Rightward nasal septal deviation. Paranasal sinuses are well pneumatized. Small amount of fluid withi n the right mastoid air cells. Orbits and globes appear intact. IMPRESSION: 1. Some limitation due to head positioning in the gantry. There is mild generalized cerebral atrophy. No acute intracranial abnormality seen. 2. Small amount of fluid in the inferior right mastoid air cells. Correlate for any mastoid pain to e xclude mastoiditis.
--- NOTE | 2024-01-13 20:06 | CT ---
EXAMINATION TYPE: CT ChestAbdPelvis wo con DATE OF EXAM: 01/13/2024 COMPARISON: 11/10/2021 and 12/22/2017 HISTORY: 88-year-old female with pain and weakness, abscess, poor lab values TECHNIQUE: Contiguous axial scanning of the chest, abdomen, and pelvis without IV contrast. Coronal a nd sagittal reconstructions performed. CT DLP: 1802.6 mGycm Automated exposure control for dose reduction was used. FINDINGS: Chest: Heart is normal in size without pericardial effusion. Three-vessel coronary artery calcifications are present. Moderate atherosclerotic arch calcifications. Prominent atherosclerotic plaque and calcification mid to distal thoracic aorta. 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 Large caliber to the main right and left pulmonary arteries measuring up to 2.8 cm suggesting underly ing pulmonary hypertension. No thoracic lymphadenopathy by CT size criteria. Hazy dependent atelectasis is noted. A 6 mm right mid lung pulmonary nodule axial image 31 is new. A 1.8 cm focal opacity left upper lobe is new. There is some mild surrounding groundglass density. Background moderate emphysema. No pleural effusion. ABDOMEN: Noncontrast appearance of the liver, adrenal glands, right kidney, spleen, and pancreas within normal limits. 7 mm nonobstructive left renal stone. Moderate atherosclerotic calcification throughout the abdominal aorta and moderate to severe within t he iliac arteries. There is segmental fusiform ectasia throughout the abdominal aorta. Mild aneurysm midportion of the 3.1 cm, unchanged. Ectasia more distally up to 2.6 cm also unchanged. No dilated small bowel, free fluid, or free air. No mesenteric or retroperitoneal lymphadenopathy. Staple line relating to prior resection and reanastomosis of the distal sigmoid colon. Pelvis: There is pelvic floor relaxation. The rectum is distended up to 6.6 cm wide with stool with mild circ umferential wall thickening. Bladder is collapsed. Mcdonald catheter in place. Uterus anteverted. Small left-sided ovary. Right ovary not clearly delineated from adjacent nonopacified bowel loops. Bones: Mild degenerative change of both hips. Moderate degenerative disc disease throughout the lower thorac ic and upper to mid lumbar spine. Hypertrophic facet arthropathy mid to lower lumbar spine. IMPRESSION: 1. COPD WITH MODERATE EMPHYSEMA AND PULMONARY ARTERIAL HYPERTENSION. 2. A new 1.8 cm opacity at the left upper lobe. Both lung cancer and atypical infections are in the d ifferential. Appropriate follow-up and management is advised. 3. A 6 mm right mid lung pulmonary nodule is also new but nonspecific and can be reassessed at follow -up. 4. A 7 mm nonobstructive left renal stone. No hydronephrosis. 5. Stool distending the rectum up to 6.6 cm wide. There is also mild circumferential rectal wall thic kening. Correlate to exclude fecal impaction and associated venous congestion of the rectal wall vers us a concurrent distal colitis. 6. Pelvic floor relaxation.
[2024-01-13] MEDS: LORazepam 2 MG/ML INJ IV PRN (21:38)
[2024-01-13] MEDS: PANTOPRAZOLE 40 MG/10 ML VIAL IV SCH (23:49)
[2024-01-14] MEDS: MORPHINE SULFATE 4 MG/ML SYRINGE IV PRN (01:49)
[2024-01-14] MEDS: SODIUM CHLORIDE 0.9% 1,000 ML IV SCH (04:04)
[2024-01-14] MEDS: MORPHINE SULFATE 2 MG/ML SYRINGE IV PRN (06:00)
[2024-01-14 08:36] LABS: Anisocytosis Moderate; Hypochromasia Marked; MCH 27.7 pg (25.0-35.0); MCHC 30.9 g/dL (31.0-37.0); MCV 89.5 fL (80.0-100.0); Macrocytosis Slight; Mean Platelet Volume 9.4; Platelet Count 274 k/uL (150-450); Poikilocytosis Marked; RBC 2.58 m/uL (3.80-5.40)
[2024-01-14 08:46] LABS: HGB 7.1 gm/dL (11.4-16.0)
[2024-01-14 08:47] LABS: HCT 23.1 % (34.0-46.0)
[2024-01-14 09:00] LABS: ALT 72 U/L (4-34); AST 473 U/L (14-36); Albumin 2.4 g/dL (3.5-5.0); Alkaline Phosphatase 160 U/L (38-126); Anion Gap 9 mmol/L; Calcium 6.9 mg/dL (8.4-10.2); Carbon Dioxide 17 mmol/L (22-30); Chloride 117 mmol/L (98-107); Glucose 122 mg/dL (74-99); Magnesium 2.7 mg/dL (1.6-2.3); Phosphorus 8.2 mg/dL (2.5-4.5); Potassium 4.9 mmol/L (3.5-5.1); Sodium 143 mmol/L (137-145); Total Bilirubin 1.3 mg/dL (0.2-1.3); Total Protein 4.3 g/dL (6.3-8.2)
[2024-01-14 09:05] LABS: African American GFR (CKD) 10 (>60 ml/min/1.73 sqM); Non-African American GFR(CKD) 9 (>60 ml/min/1.73 sqM)
[2024-01-14 09:17] LABS: Band Neutrophils % 18 %; Eosinophils # (M) 0.23 k/uL (0-0.7); Monocytes # (M) 0.68 k/uL (0-1.0); Myelocytes # (M) 0.45 k/uL (0); Myelocytes % 2 %; Neutrophils % (M) 74 %; Nucleated Red Blood Cells 8 /100 WBC (0-0); Total Cells Counted 200; WBC 22.5 k/uL (3.8-10.6)
[2024-01-14 09:32] LABS: Blood Urea Nitrogen 116 mg/dL (7-17)
[2024-01-14] MEDS: NA PHOS,M-B/NA PHOS,DI-BA 133 ML ENEMA RECTAL STA (09:38)
[2024-01-14 10:03] LABS: Lipase 7046 U/L (23-300)
[2024-01-14] MEDS: NICOTINE 21MG/24HR PATCH TRANSDERM SCH (10:27)
[2024-01-14] MEDS: MAGNESIUM CITRATE 296 ML BOTTLE PO ONE (10:46)
[2024-01-14] MEDS: SODIUM CHLORIDE 0.45% 1,000 ML IV SCH (10:48)
[2024-01-14] MEDS ORDERED: IPRATROPIUM-ALBUTEROL 3 ML NEB INHALATION PRN (12:05)
[2024-01-14] MEDS: IPRATROPIUM-ALBUTEROL 3 ML NEB INHALATION SCH (16:08)
--- NOTE | 2024-01-14 16:16 | P.HPIM ---
History of Present Illness H&P Date: 01/14/24 Chief Complaint: Abdominal pain This is a 88-year-old patient, follows with Dr. Reagan. Medical history includes CAD with stent, COPD, GERD, hypertension, osteoarthritis chronic low back pain, peptic ulcer disease, urinary stress incontinence. Patient does live alone. Does use a wheeled walker. Patient's history is obtained by patient's medical power of employment attorney /[id number]-ntm Caity Hale. Telephone #[phone] Today is Wednesday. On Wednesday that visit with the patient. She even took a shower. Yesterday with the patient's daughter went there patient even had a lot of trouble getting to the door. Abdominal pain. Apparently not eaten. When she presented to the ER hemoglobin was found to be 4.3. Patient seen by the ER physician given 3 units of blood. Patient's daughter alfojeoe-wi-[id number] son decided to make the patient comfortable. Do not want any further investigations or surgical intervention. Patient been found to have severe obstipation. Patient is somewhat delirious not able to give any history. Who I saw in the ER. Review of systems cannot obtain patient is rather delirious Social history: Lives alone. Uses a wheeled walker. Patient been smoking 3 packs a day for over 50 years. Has recently cut back. No alcohol. Patient son and [id number] other medical power of employment attorney. Family does check on her Physical examination: VITAL SIGNS: 97.5, 114, 18, 105/44, 95% on 2 L GENERAL: BMI 23.5, somewhat restless delirious. EYES: Pupils equal. Conjunctiva aida l. HEENT: External appearance of nose and ears normal, oral cavity grossly normal. NECK: JVD not raised; masses not palpable. HEART: First and second heart sounds are normal; no edema. LUNGS: Respiratory rate increased; diminished breath sounds. ABDOMEN: Soft, lower abdominal tenderness, no guarding rigidity r, liver spleen not palpable, no masses palpable. PSYCH: Patient delirious not really answering questions l. MUSCULOSKELETAL:No Clubbing/cyanosis;muscles-grossly intact. OA NEUROLOGICAL: Cranial nerves grossly intact; no facial asymmetry, moving all 4 limbs, sensation grossly preserved. LYMPHATICS: No lymph nodes palpable in the axilla and neck INVESTIGATIONS, reviewed in the clinical context: January 13: White count 22.5 hemoglobin 7.1 platelets 274 sodium 143 potassium 4.9 bicarb 17 BUN 116 creatinine 4.19 lactic acid 1.1 phosphorus 8.2 AST 473 ALT 72 lipase 7046 January 12: White count 27.6 hemoglobin 4.3 platelets 342 sodium 140 potassium 6.5 bicarb less than 5 BUN 105 creatinine 4.63 lactic acid 11.5 phosphorus 10.9 AST 306 ALT 46 troponin I 0.044 UA: Negative Stool occult blood positive EKG tracing normal sinus rhythm. ST-T wave changes. CT chest abdomen pelvis without contrast: 3.5 cm mid descending thoracic aortic aneurysm. Large caliber Carlos of left right pulmonary artery suggesting pulmonary hypertension 6 mm right midlung pulm nodule. 1.8 cm focal opacity left upper lobe.Rectum distended to 6.6 cm with stool with mild circumferential wall thickening COPD Assessment plan: -Acute severe metabolic encephalopathy and delirium multifactorial -Acute severe blood loss anemia hemoglobin on presentation was 4.3. Patient received 3 units of blood in the ER. Occult blood was positive. Patient was somewhat her normal self 5 days ago on Wednesday. When she was last visited by her family. -Hyperkalemia due to severe renal failure Patient received IV fluids and sodium bicarbonate -Severe metabolic acidosis from renal failure -Severe renal failure and ATN multifactorial -Lactic acidosis predominantly type II -Hyperphosphatemia secondary to renal failure -Hepatitis could be ischemic -Troponinemia in the second setting of renal failure. No obvious evidence of ACS -Elevated lipase. Could be from renal failure. As lipase is cleared from kidneys. 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 -Severe obstipation with rectal wall distention of 6.6 cm. -DNR Dr. Eddy from [facility] informed me that patient's family decided not to be aggressive. Do not want any surgery. Advance care planning [January 13] Spoke at length with patient's syvazoly-[id number] Caity Hale who is one of the medical POA. They do not want any further blood draws. No surgical intervention. I did talk about the laxative and mag citrate to hopefully make the patient symptoms better. Morphine as needed for pain control. IV fluids. Hold off any further consultations. May need to give NG tube for mag citrate as patient rather uncomfortable for lower abdominal pain. This was discussed at length with the nurse at the bedside. in the ER.. Past Medical History Past Medical History: Coronary Artery Disease (CAD), Chest Pain / Angina, COPD, GERD/Reflux, Hypertension, Osteoarthritis (OA), Pneumonia Additional Past Medical History / Comment(s): chronic low back pain, R carpal tunnel syndrome, PUD, diverticulitis, bronchitis, urinary stress incontinence, pt is on lasix but does not recall reason, UTI infections in past History of Any Multi-Drug Resistant Organisms: None Reported Past Surgical History: Bowel Resection, Cholecystectomy, Heart Catheterization With Stent, Hysterectomy, Tonsillectomy Additional Past Surgical History / Comment(s): Partial hysterectomy, one ovary removed d/t cyst-pt cannot recall laterallity, bowel resection d/t diverticulitis, bilateral cataract removals/lens implants. Past Anesthesia/Blood Transfusion Reactions: No Reported Reaction Date of Last Stent Placement:: 12/2017 Smoking Status: Current every day smoker - Past Family History Mother History Unknown: Yes Additional Family Medical History / Comment(s): Mother had migraines. Father Family Medical History: No Reported History Additional Family Medical History / Comment(s): Father was healthy. Medications and Allergies Home Medications Medication Instructions Recorded Confirmed Type Ferrous Sulfate [Iron (65 MG 325 mg PO BID 12/22/17 01/13/24 History Elemental)] Furosemide [Lasix] 20 mg PO DAILY 12/22/17 01/13/24 History Clopidogrel [Plavix] 75 mg PO DAILY #303 tab 12/24/17 01/13/24 Rx Donepezil HCl [Aricept] 5 mg PO HS 12/30/18 01/13/24 History Albuterol Inhaler [Ventolin Hfa 2 puff INHALATION RT-QID PRN 12/12/20 01/13/24 History Inhaler] Aspirin EC [Ecotrin Low Dose] 81 mg PO DAILY 12/12/20 01/13/24 History Atorvastatin [Lipitor] 80 mg PO HS 12/12/20 01/13/24 History Metoprolol Tartrate [Lopressor] 12.5 mg PO DAILY 12/12/20 01/13/24 History Ergocalciferol [Vitamin D2 (1250 1,250 mcg PO Q7D 01/13/24 01/13/24 History Mcg = 09684 Iu)] Sulfamethox-Tmp 800-160Mg [Bactrim 1 tab PO Q12HR 01/13/24 01/13/24 History DS 800-160 mg] Allergies Allergy/AdvReac Type Severity Reaction Status Date / Time levofloxacin Allergy Anaphylaxis Verified 01/13/24 17:33 Physical Exam Vitals: Vital Signs Temp Pulse Pulse Resp BP BP Pulse Ox 01/14/24 09:46 114 H 18 105/44 95 01/14/24 06:00 108 H 20 109/55 99 01/14/24 05:00 108 H 20 101/43 100 01/14/24 03:56 97.5 F L 107 H 20 100/41 100 01/14/24 02:12 97.4 F L 113 H 20 102/44 100 01/14/24 01:52 97.5 F L 111 H 20 102/44 100 01/14/24 01:39 97.4 F L 105 H 20 94/43 100 01/14/24 00:05 97.3 F L 112 H 22 95/40 100 01/13/24 23:45 97.1 F L 112 H 20 88/41 100 01/13/24 23:25 97.3 F L 114 H 20 82/35 100 01/13/24 23:23 113 H 20 84/50 100 01/13/24 23:06 115 H 20 86/39 100 01/13/24 22:50 115 H 77/43 100 01/13/24 21:56 112 H 83/68 01/13/24 21:51 97.4 F L 111 H 20 80/35 01/13/24 21:49 111 H 20 81/53 100 01/13/24 21:38 112 H 82/37 88 L 01/13/24 21:31 97.2 F L 112 H 20 82/37 88 L 01/13/24 21:18 97.3 F L 110 H 20 61/29 99 01/13/24 19:49 109 H 22 93/33 01/13/24 19:02 103 H 28 H 98/64 100 01/13/24 18:29 88/64 01/13/24 18:15 103 H 26 H 01/13/24 18:00 99/57 01/13/24 17:46 102 H 18 88/52 01/13/24 17:38 107 H 26 H 87/43 01/13/24 17:14 102 H 24 81/31 01/13/24 17:06 101 H 72/33 01/13/24 16:33 97 F L 105 H 24 94/40 99 Intake and Output 01/13/24 01/14/24 01/14/24 22:59 06:59 14:59 Intake Total 0 930 Balance 0 930 Intake: Blood Product 0 930 Rc As-1 Unit 0 310 [id number] Rc As-1 Unit 310 [id number] Rc As-1 Unit 310 [id number] Other: Weight 68.039 kg 68.039 kg Results CBC & Chem 7: 01/14/24 06:25 01/14/24 06:25 Labs: Abnormal Lab Results - Last 24 Hours (Table) 01/13/24 01/13/24 01/13/24 Range/Units 16:55 16:55 16:55 WBC 27.6 H (3.8-10.6) k/uL RBC 1.65 L (3.80-5.40) m/uL Hgb 4.3 L* (11.4-16.0) gm/dL Hct 16.5 L* (34.0-46.0) % MCV 100.1 H (80.0-100.0) fL MCHC 26.0 L (31.0-37.0) g/dL RDW 26.0 H (11.5-15.5) % Neutrophils # (Manual) 22.08 H (1.3-7.7) k/uL Lymphocytes # (Manual) 4.97 H (1.0-4.8) k/uL Metamyelocytes # (Man) 0.55 H (0) k/uL Myelocytes # (Manual) (0) k/uL Nucleated RBCs 31 H (0-0) /100 WBC Macrocytosis Marked A PT 15.4 H (10.0-12.5) sec INR 1.5 H (<1.2) APTT 21.4 L (22.0-30.0) sec Potassium 6.5 H* (3.5-5.1) mmol/L Chloride 111 H (98-107) mmol/L Carbon Dioxide <5 L* (22-30) mmol/L BUN 105 H* (7-17) mg/dL Creatinine 4.63 H (0.52-1.04) mg/dL Glucose 105 H (74-99) mg/dL Plasma Lactic Acid Vishal (0.7-2.0) mmol/L Calcium 8.1 L (8.4-10.2) mg/dL Phosphorus 10.9 H* (2.5-4.5) mg/dL Magnesium 3.0 H (1.6-2.3) mg/dL AST 306 H (14-36) U/L ALT 46 H (4-34) U/L Alkaline Phosphatase 157 H (38-126) U/L Troponin I (0.000-0.034) ng/mL Total Protein 5.0 L (6.3-8.2) g/dL Albumin 3.0 L (3.5-5.0) g/dL Lipase (23-300) U/L Stool Occult Blood (Negative) Crossmatch 01/13/24 01/13/24 01/13/24 Range/Units 16:55 16:55 16:55 WBC (3.8-10.6) k/uL RBC (3.80-5.40) m/uL Hgb (11.4-16.0) gm/dL Hct (34.0-46.0) % MCV (80.0-100.0) fL MCHC (31.0-37.0) g/dL RDW (11.5-15.5) % Neutrophils # (Manual) (1.3-7.7) k/uL Lymphocytes # (Manual) (1.0-4.8) k/uL Metamyelocytes # (Man) (0) k/uL Myelocytes # (Manual) (0) k/uL Nucleated RBCs (0-0) /100 WBC Macrocytosis PT (10.0-12.5) sec INR (<1.2) APTT (22.0-30.0) sec Potassium (3.5-5.1) mmol/L Chloride (98-107) mmol/L Carbon Dioxide (22-30) mmol/L BUN (7-17) mg/dL Creatinine (0.52-1.04) mg/dL Glucose (74-99) mg/dL Plasma Lactic Acid Vishal 11.5 H* (0.7-2.0) mmol/L Calcium (8.4-10.2) mg/dL Phosphorus (2.5-4.5) mg/dL Magnesium (1.6-2.3) mg/dL AST (14-36) U/L ALT (4-34) U/L Alkaline Phosphatase (38-126) U/L Troponin I 0.044 H* (0.000-0.034) ng/mL Total Protein (6.3-8.2) g/dL Albumin (3.5-5.0) g/dL Lipase (23-300) U/L Stool Occult Blood Positive H (Negative) Crossmatch 01/13/24 01/14/24 01/14/24 Range/Units 18:55 06:25 06:25 WBC 22.5 H (3.8-10.6) k/uL RBC 2.58 L (3.80-5.40) m/uL Hgb 7.1 L D (11.4-16.0) gm/dL Hct 23.1 L (34.0-46.0) % MCV (80.0-100.0) fL MCHC 30.9 L (31.0-37.0) g/dL RDW 22.0 H (11.5-15.5) % Neutrophils # (Manual) 20.70 H (1.3-7.7) k/uL Lymphocytes # (Manual) 0.90 L (1.0-4.8) k/uL Metamyelocytes # (Man) (0) k/uL Myelocytes # (Manual) 0.45 H (0) k/uL Nucleated RBCs 8 H (0-0) /100 WBC Macrocytosis PT (10.0-12.5) sec INR (<1.2) APTT (22.0-30.0) sec Potassium (3.5-5.1) mmol/L Chloride 117 H (98-107) mmol/L Carbon Dioxide 17 L (22-30) mmol/L BUN 116 H* (7-17) mg/dL Creatinine 4.19 H (0.52-1.04) mg/dL Glucose 122 H (74-99) mg/dL Plasma Lactic Acid Vishal (0.7-2.0) mmol/L Calcium 6.9 L (8.4-10.2) mg/dL Phosphorus 8.2 H (2.5-4.5) mg/dL Magnesium 2.7 H (1.6-2.3) mg/dL AST 473 H (14-36) U/L ALT 72 H (4-34) U/L Alkaline Phosphatase 160 H (38-126) U/L Troponin I (0.000-0.034) ng/mL Total Protein 4.3 L (6.3-8.2) g/dL Albumin 2.4 L (3.5-5.0) g/dL Lipase 7046 H (23-300) U/L Stool Occult Blood (Negative) Crossmatch See Detail Thrombosis Risk Factor Assmnt - Choose All That Apply Any of the Below Risk Factors Present?: Yes Each Factor Represents 1 point: Abnormal pulmonary function (COPD) Other Risk Factors: Yes Each Risk Factor Represents 3 Points: Age 75 years or older Other congenital or acquired thrombophilia - If yes, enter type in comment: No Thrombosis Risk Factor Assessment Total Risk Factor Score: 4 Thrombosis Risk Factor Assessment Level: Moderate Risk
--- NOTE | 2024-01-14 16:36 | XR ---
EXAMINATION TYPE: XR chest 1V portable DATE OF EXAM: 01/14/2024 COMPARISON: 11/10/2021 HISTORY: NG tube placement TECHNIQUE: Single frontal view of the chest is obtained. FINDINGS: There is an NG tube within the stomach. There is a partially consolidative opacity in the right lower lobe suggestive of pneumonia or atelect asis. Short-term follow-up to resolution is recommended. There is no pleural effusion or pneumothorax. Heart and pulmonary vasculature are normal. IMPRESSION: 1. NG tube within the stomach. 2. Infiltrate in the right lower lobe, possible pneumonia. Short-term follow-up to resolution is rec ommended.
[2024-01-14] MEDS ORDERED: ACETAMINOPHEN SUPPOSITORY 650 MG SUPP RECTAL PRN (19:41)
[2024-01-15 10:13] VITALS: BP 102/58; PULSE 119; RESP 29; TEMP 98.3
[2024-01-15] MEDS ORDERED: FUROSEMIDE 10 MG/ML 2 ML VIAL IV ONE (11:04)
--- NOTE | 2024-01-15 15:17 | P.DS ---
Providers Date of admission: 01/13/24 19:20 Expected date of discharge: 01/15/24 (Patient ) Attending physician: Wilton Serrano Primary care physician: Luisito Reagan [facility] Course: Chief Complaint: Abdominal pain This is a 88-year-old patient, follows with Dr. Reagan. Medical history includes CAD with stent, COPD, GERD, hypertension, osteoarthritis chronic low back pain, peptic ulcer disease, urinary stress incontinence. Patient does live alone. Does use a wheeled walker. Patient's history is obtained by patient's medical power of business attorney/prxjwgky-am-ldb Caity Hale. Telephone #[phone] Today is Wednesday. On Wednesday that visit with the patient. She even took a shower. Yesterday with the patient's daughter went there patient even had a lot of trouble getting to the door. Abdominal pain. Apparently not eaten. When she presented to the ER hemoglobin was found to be 4.3. Patient seen by the ER physician given 3 units of blood. Patient's daughter pzhfsqgs-rh-[id number] son decided to make the patient comfortable. Do not want any further investigations or surgical intervention. Patient been found to have severe obstipation. Patient is somewhat delirious not able to give any history. Who I saw in the ER. January 14: Patient was comfort care. today. Family at the bedside later. Social history: Lives alone. Uses a wheeled walker. Patient been smoking 3 packs a day for over 50 years. Has recently cut back. No alcohol. Patient son and jhattgcy-he-mpi other medical power of business attorney. Family does check on her INVESTIGATIONS, reviewed in the clinical context: January 13: White count 22.5 hemoglobin 7.1 platelets 274 sodium 143 potassium 4.9 bicarb 17 BUN 116 creatinine 4.19 lactic acid 1.1 phosphorus 8.2 AST 473 ALT 72 lipase 7046 January 12: White count 27.6 hemoglobin 4.3 platelets 342 sodium 140 potassium 6.5 bicarb less than 5 BUN 105 creatinine 4.63 lactic acid 11.5 phosphorus 10.9 AST 306 ALT 46 troponin I 0.044 UA: Negative Stool occult blood positive EKG tracing normal sinus rhythm. ST-T wave changes. CT chest abdomen pelvis without contrast: 3.5 cm mid descending thoracic aortic aneurysm. Large caliber Carlos of left right pulmonary artery suggesting pulmonary hypertension 6 mm right midlung pulm nodule. 1.8 cm focal opacity left upper lobe.Rectum distended to 6.6 cm with stool with mild circumferential wall t hickening COPD Cause of : COPD Assessment plan: -Acute severe metabolic encephalopathy and delirium multifactorial -Acute severe blood loss anemia hemoglobin on presentation was 4.3. Patient received 3 units of blood in the ER. Occult blood was positive. Patient was somewhat her normal self 5 days ago on Wednesday. When she was last visited by her family. -Hyperkalemia due to severe renal failure Patient received IV fluids and sodium bicarbonate -Severe metabolic acidosis from renal failure -Severe renal failure and ATN multifactorial -Lactic acidosis predominantly type II -Hyperphosphatemia secondary to renal failure -Hepatitis could be ischemic -Troponinemia in the second setting of renal failure. No obvious evidence of ACS -Elevated lipase. Could be from renal failure. As lipase is cleared from kidneys. 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 -Severe obstipation with rectal wall distention of 6.6 cm. -DNR Advance care planning [January 13] Spoke at length with patient's uavrgtke-si-bog Caity Hale who is one of the medical POA. They do not want any further blood draws. No surgical intervention. I did talk about the laxative and mag citrate to hopefully make the patient symptoms better. Morphine as needed for pain control. IV fluids. Disposition: Past Medical History Past Medical History: Coronary Artery Disease (CAD), Chest Pain / Angina, COPD, GERD/Reflux, Hypertension, Osteoarthritis (OA), Pneumonia Additional Past Medical History / Comment(s): chronic low back pain, R carpal tunnel syndrome, PUD, diverticulitis, bronchitis, urinary stress incontinence, pt is on lasix but does not recall reason, UTI infections in past History of Any Multi-Drug Resistant Organisms: None Reported Past Surgical History: Bowel Resection, Cholecystectomy, Heart Catheterization With Stent, Hysterectomy, Tonsillectomy Additional Past Surgical History / Comment(s): Partial hysterectomy, one ovary removed d/t cyst-pt cannot recall laterallity, bowel resection d/t diverticulitis, bilateral cataract removals/lens implants. Past Anesthesia/Blood Transfusion Reactions: No Reported Reaction Date of Last Stent Placement:: 12/2017 Smoking Status: Current every day smoker Plan - Discharge Summary Discharge Rx Participant: No New Discharge Prescriptions: No Action Furosemide [Lasix] 20 mg PO DAILY Ferrous Sulfate [Iron (65 MG Elemental)] 325 mg PO BID Clopidogrel [Plavix] 75 mg PO DAILY #303 tab Donepezil HCl [Aricept] 5 mg PO HS Aspirin EC [Ecotrin Low Dose] 81 mg PO DAILY Atorvastatin [Lipitor] 80 mg PO HS Albuterol Inhaler [Ventolin Hfa Inhaler] 2 puff INHALATION RT-QID PRN PRN Reason: Shortness Of Breath Metoprolol Tartrate [Lopressor] 12.5 mg PO DAILY Sulfamethox-Tmp 800-160Mg [Bactrim DS 800-160 mg] 1 tab PO Q12HR Ergocalciferol [Vitamin D2 (1250 Mcg = 48476 Iu)] 1,250 mcg PO Q7D Discharge Medication List Ferrous Sulfate [Iron (65 MG Elemental)] 325 mg PO BID 12/22/17 [History] Furosemide [Lasix] 20 mg PO DAILY 12/22/17 [History] Clopidogrel [Plavix] 75 mg PO DAILY #303 tab 12/24/17 [Rx] Donepezil HCl [Aricept] 5 mg PO HS 12/30/18 [History] Albuterol Inhaler [Ventolin Hfa Inhaler] 2 puff INHALATION RT-QID PRN 12/12/20 [History] Aspirin EC [Ecotrin Low Dose] 81 mg PO DAILY 12/12/20 [History] Atorvastatin [Lipitor] 80 mg PO HS 12/12/20 [History] Metoprolol Tartrate [Lopressor] 12.5 mg PO DAILY 12/12/20 [History] Ergocalciferol [Vitamin D2 (1250 Mcg = 31979 Iu)] 1,250 mcg PO Q7D 01/13/24 [History] Sulfamethox-Tmp 800-160Mg [Bactrim DS 800-160 mg] 1 tab PO Q12HR 01/13/24 [History] Follow up Appointment(s)/Referral(s): None,Stated [REFERRING] - 1-2 days
== END 2024-01-15 11:19 | disposition expired | DRG 811 ==
LOC: EC 16:14 → 2SICU 19:20 → 3SCARD 22:46 → 4SSUR 01-14 14:34 → 5NMEDONC 01-14 16:04 → 4SSUR 01-14 20:52
PROVIDERS: ADMIT Hospitalist; ATTEND Hospitalist
PROC: 30233N1 Transfusion of Nonautologous Red Blood Cells into Peripheral Vein, Percutaneous Approach (ICD-10-PCS; principal; 2024-01-13)
DX: D62 Acute posthemorrhagic anemia (principal); G93.41 Metabolic encephalopathy; N17.0 Acute kidney failure with tubular necrosis; F05 Delirium due to known physiological condition; E87.21 Acute metabolic acidosis; K92.2 Gastrointestinal hemorrhage, unspecified; I27.23 Pulmonary hypertension due to lung diseases and hypoxia; I71.23 Aneurysm of the descending thoracic aorta, without rupture; E11.9 Type 2 diabetes mellitus without complications; J44.9 Chronic obstructive pulmonary disease, unspecified; Z51.5 Encounter for palliative care; Z66 Do not resuscitate; E83.39 Other disorders of phosphorus metabolism; K75.9 Inflammatory liver disease, unspecified; I10 Essential (primary) hypertension; I25.10 Atherosclerotic heart disease of native coronary artery without angina pectoris; F17.210 Nicotine dependence, cigarettes, uncomplicated; K59.00 Constipation, unspecified; E87.5 Hyperkalemia; R26.9 Unspecified abnormalities of gait and mobility; R91.1 Solitary pulmonary nodule; R19.5 Other fecal abnormalities; R79.89 Other specified abnormal findings of blood chemistry; Z79.82 Long term (current) use of aspirin; Z79.899 Other long term (current) drug therapy; Z79.02 Long term (current) use of antithrombotics/antiplatelets; Z88.1 Allergy status to other antibiotic agents; Z87.11 Personal history of peptic ulcer disease; Z95.5 Presence of coronary angioplasty implant and graft
CPT/HCPCS: 36415; 70450; 71045; 71250; 74176; 80053; 81003; 82272; 83605; 83690; 83735; 84100; 84484; 85025; 85610; 85730; 86850; 86900; 86901; 86920; 93005; 96361; 96375; 96376; 99285